=== PATIENT | female | born 1950 | race Caucasian/White ===

== ENCOUNTER 2019-07-17 09:10 | Outpatient (REF) | payer MEDICARE, OTHER, SELFPAY ==
[2019-07-17 09:23] LABS: Abs Immature Grans 0.01 k/cumm (0.0-0.09); Absolute Basophil Count 0.02 k/cumm (0.0-0.2); Absolute Monocyte Count 1.16 k/cumm (0.11-0.7); Absolute Neutrophil Count 3.75 k/cumm (1.2-6.7); Basophils % 0.2; Eosinophils % 4.8; HCT 36.3 % (36.0-46.0); HGB 11.2 g/dL (12.0-15.5); Immature Grans % 0.1; Mean Corp. HGB Concentration 30.9 g/dL (32.0-36.0); Mean Corpuscular Hemoglobin 28.9 pg (27.0-33.0); Mean Corpuscular Volume 93.6 fL (80-95); Mean Platelet Volume 9.6 fL (8.0-11.0); Monocytes % 13.9; Platelet Count 401 x1000/uL (130-400); RBC 3.88 m/cumm (4.00-5.20); White Blood Cell Count 8.34 k/cumm (4.4-10.8)
[2019-07-17 09:33] LABS: ALT 18 U/L (14-59); AST 21 U/L (15-37); Albumin 3.2 g/dL (3.4-5.0); Alkaline Phosphatase 91 U/L (46-116); Anion Gap 8.8 mmol/L (3-11); BUN 15 mg/dL (7-18); Bilirubin, Total 0.2 mg/dL (0.2-1.0); CO2 27.2 mmol/L (21.0-32.0); CREATININE 0.75 mg/dL (0.55-1.02); Calcium 8.6 mg/dL (8.5-10.1); Chloride 105 mmol/L (98-107); Glucose 92 mg/dL (70-100); Potassium 3.9 mmol/L (3.5-5.1); Sodium 141 mmol/L (136-145); Total Protein 7.2 g/dL (6.4-8.2)
[2019-07-18 10:28] LABS: CA 125 174 U/mL (0-30)
== END 2019-07-17 09:30 ==
LOC: LBN 09:10
PROVIDERS: Visit Provider Obstetrics & Gynecology Gynecologic Oncology
DX: C80.1 Malignant (primary) neoplasm, unspecified (principal); C56.9 Malignant neoplasm of unspecified ovary
CPT/HCPCS: 80053; 86304; 85025

== ENCOUNTER 2019-08-07 01:57 | Outpatient (RCR) | payer MEDICARE, SELFPAY | END 2019-08-07 23:59 | disposition home or self-care (01) | LOC: INF 01:57 | PROVIDERS: PCP Physician Assistant; Visit Provider Internal Medicine Hematology & Oncology | DX: R69 Illness, unspecified (principal) ==

== ENCOUNTER 2019-08-07 08:52 | Outpatient (CLI) | payer MEDICARE, OTHER, SELFPAY ==
[2019-08-07 09:25] LABS: Abs Immature Grans 0.02 k/cumm (0.0-0.09); Absolute Basophil Count 0.04 k/cumm (0.0-0.2); Absolute Eosinophil Count 0.11 k/cumm (0.0-0.7); Absolute Lymphocyte Count 2.62 k/cumm (1.2-3.4); Absolute Monocyte Count 1.02 k/cumm (0.11-0.7); Absolute Neutrophil Count 4.85 k/cumm (1.2-6.7); Basophils % 0.5; Eosinophils % 1.3; HCT 32.6 % (36.0-46.0); Immature Grans % 0.2; Lymphocytes % 30.3; Mean Corp. HGB Concentration 30.7 g/dL (32.0-36.0); Mean Corpuscular Hemoglobin 28.9 pg (27.0-33.0); Mean Corpuscular Volume 94.2 fL (80-95); Mean Platelet Volume 9.1 fL (8.0-11.0); Monocytes % 11.8; Neutrophils % 55.9; Platelet Count 433 x1000/uL (130-400); RBC 3.46 m/cumm (4.00-5.20); RBC Distribution Width 17.1 % (11.7-14.6); White Blood Cell Count 8.66 k/cumm (4.4-10.8)
[2019-08-07 09:48] LABS: ALT 30 U/L (14-59); AST 30 U/L (15-37); Albumin 3.2 g/dL (3.4-5.0); Alkaline Phosphatase 98 U/L (46-116); Anion Gap 7.9 mmol/L (3-11); BUN 15 mg/dL (7-18); Bilirubin, Total 0.2 mg/dL (0.2-1.0); CO2 26.1 mmol/L (21.0-32.0); CREATININE 0.74 mg/dL (0.55-1.02); Chloride 107 mmol/L (98-107); Glucose 96 mg/dL (70-100); Potassium 4.1 mmol/L (3.5-5.1); Sodium 141 mmol/L (136-145); Total Protein 7.2 g/dL (6.4-8.2)
[2019-08-08 10:56] LABS: CA 125 79 U/mL (0-30)
== END 2019-08-07 09:12 ==
PROVIDERS: PCP Physician Assistant; Visit Provider Obstetrics & Gynecology Gynecologic Oncology
DX: C80.1 Malignant (primary) neoplasm, unspecified (principal); C56.9 Malignant neoplasm of unspecified ovary
CPT/HCPCS: 36415; 80053; 86304; 85025

== ENCOUNTER 2019-08-28 02:55 | Outpatient (RCR) | payer MEDICARE, OTHER, SELFPAY | END 2019-09-06 23:59 | disposition home or self-care (01) | LOC: INF 02:55 | PROVIDERS: PCP Physician Assistant; Visit Provider Internal Medicine Hematology & Oncology | DX: R69 Illness, unspecified (principal) ==

== ENCOUNTER 2019-08-28 08:48 | Outpatient (CLI) | payer MEDICARE, OTHER, SELFPAY ==
[2019-08-28 09:19] LABS: Abs Immature Grans 0.02 k/cumm (0.0-0.09); Absolute Basophil Count 0.01 k/cumm (0.0-0.2); Absolute Eosinophil Count 0.04 k/cumm (0.0-0.7); Absolute Lymphocyte Count 2.47 k/cumm (1.2-3.4); Absolute Monocyte Count 0.94 k/cumm (0.11-0.7); Absolute Neutrophil Count 6.03 k/cumm (1.2-6.7); Basophils % 0.1; Eosinophils % 0.4; HCT 33.7 % (36.0-46.0); HGB 10.4 g/dL (12.0-15.5); Immature Grans % 0.2; Mean Corp. HGB Concentration 30.9 g/dL (32.0-36.0); Mean Corpuscular Hemoglobin 30.1 pg (27.0-33.0); Mean Corpuscular Volume 97.4 fL (80-95); Mean Platelet Volume 9.4 fL (8.0-11.0); Monocytes % 9.9; Neutrophils % 63.4; Platelet Count 156 x1000/uL (130-400); RBC 3.46 m/cumm (4.00-5.20); RBC Distribution Width 20.6 % (11.7-14.6); White Blood Cell Count 9.51 k/cumm (4.4-10.8)
[2019-08-28 09:33] LABS: ALT 31 U/L (14-59); AST 24 U/L (15-37); Albumin 3.6 g/dL (3.4-5.0); Alkaline Phosphatase 111 U/L (46-116); Anion Gap 7.6 mmol/L (3-11); BUN 14 mg/dL (7-18); Bilirubin, Total 0.1 mg/dL (0.2-1.0); CO2 25.4 mmol/L (21.0-32.0); CREATININE 0.71 mg/dL (0.55-1.02); Calcium 8.5 mg/dL (8.5-10.1); Chloride 105 mmol/L (98-107); Glucose 93 mg/dL (74-106); Potassium 4.3 mmol/L (3.5-5.1); Sodium 138 mmol/L (136-145); Total Protein 7.2 g/dL (6.4-8.2)
[2019-08-28 09:51] LABS: Anisocytosis 1+; Diff Comment RBC Morph Reviewed; Poikilocytes 1+; Polychromasia Present
[2019-08-29 12:31] LABS: CA 125 65 U/mL (<30)
== END 2019-08-28 09:08 ==
PROVIDERS: PCP Physician Assistant; Visit Provider Obstetrics & Gynecology Gynecologic Oncology
DX: C80.1 Malignant (primary) neoplasm, unspecified (principal); C56.9 Malignant neoplasm of unspecified ovary
CPT/HCPCS: 36415; 80053; 86304; 85025

== ENCOUNTER 2019-09-18 01:25 | Outpatient (CLI) | payer MEDICARE, OTHER, SELFPAY ==
[2019-09-18 08:42] LABS: Abs Immature Grans 0.01 k/cumm (0.0-0.09); Absolute Basophil Count 0.03 k/cumm (0.0-0.2); Absolute Eosinophil Count 0.08 k/cumm (0.0-0.7); Absolute Lymphocyte Count 2.08 k/cumm (1.2-3.4); Absolute Monocyte Count 0.95 k/cumm (0.11-0.7); Absolute Neutrophil Count 3.39 k/cumm (1.2-6.7); Basophils % 0.5; Eosinophils % 1.2; HCT 29.3 % (36.0-46.0); HGB 8.9 g/dL (12.0-15.5); Immature Grans % 0.2; Lymphocytes % 31.8; Mean Corp. HGB Concentration 30.4 g/dL (32.0-36.0); Mean Corpuscular Hemoglobin 30.5 pg (27.0-33.0); Mean Corpuscular Volume 100.3 fL (80-95); Mean Platelet Volume 8.7 fL (8.0-11.0); Monocytes % 14.5; Neutrophils % 51.8; Platelet Count 401 x1000/uL (130-400); RBC 2.92 m/cumm (4.00-5.20); White Blood Cell Count 6.54 k/cumm (4.4-10.8)
[2019-09-18 08:57] LABS: ALT 21 U/L (14-59); AST 22 U/L (15-37); Albumin 3.2 g/dL (3.4-5.0); Alkaline Phosphatase 106 U/L (46-116); Anion Gap 10.9 mmol/L (3-11); BUN 13 mg/dL (7-18); Bilirubin, Total 0.2 mg/dL (0.2-1.0); CO2 26.1 mmol/L (21.0-32.0); CREATININE 0.75 mg/dL (0.55-1.02); Calcium 9.1 mg/dL (8.5-10.1); Chloride 103 mmol/L (98-107); Glucose 118 mg/dL (74-106); Potassium 3.8 mmol/L (3.5-5.1); Sodium 140 mmol/L (136-145); Total Protein 7.2 g/dL (6.4-8.2)
[2019-09-18 09:22] LABS: Anisocytosis 2+; Diff Comment RBC Morph Reviewed; Polychromasia Present
[2019-09-18 09:23] LABS: Poikilocytes 1+
[2019-09-19 11:37] LABS: CA 125 70 U/mL (<30)
== END 2019-09-18 01:45 ==
PROVIDERS: PCP Physician Assistant; Visit Provider Obstetrics & Gynecology Gynecologic Oncology
DX: C80.1 Malignant (primary) neoplasm, unspecified (principal); C56.9 Malignant neoplasm of unspecified ovary
CPT/HCPCS: 36415; 80053; 86304; 85025

== ENCOUNTER 2019-10-09 07:43 | Outpatient (CLI) | payer MEDICARE, OTHER, SELFPAY ==
[2019-10-09 08:11] LABS: Abs Immature Grans 0.01 k/cumm (0.0-0.09); Absolute Basophil Count 0.02 k/cumm (0.0-0.2); Absolute Eosinophil Count 0.02 k/cumm (0.0-0.7); Absolute Lymphocyte Count 1.95 k/cumm (1.2-3.4); Absolute Monocyte Count 0.77 k/cumm (0.11-0.7); Absolute Neutrophil Count 4.12 k/cumm (1.2-6.7); Basophils % 0.3; Eosinophils % 0.3; HCT 29.3 % (36.0-46.0); HGB 9.1 g/dL (12.0-15.5); Immature Grans % 0.1; Lymphocytes % 28.3; Mean Corp. HGB Concentration 31.1 g/dL (32.0-36.0); Mean Corpuscular Volume 103.2 fL (80-95); Mean Platelet Volume 9.5 fL (8.0-11.0); Monocytes % 11.2; Neutrophils % 59.8; Platelet Count 165 x1000/uL (130-400); RBC 2.84 m/cumm (4.00-5.20); RBC Distribution Width 22.8 % (11.7-14.6); White Blood Cell Count 6.89 k/cumm (4.4-10.8)
[2019-10-09 08:24] LABS: ALT 21 U/L (14-59); AST 26 U/L (15-37); Albumin 3.4 g/dL (3.4-5.0); Alkaline Phosphatase 104 U/L (46-116); Anion Gap 10.2 mmol/L (3-11); BUN 14 mg/dL (7-18); Bilirubin, Total 0.2 mg/dL (0.2-1.0); CO2 25.8 mmol/L (21.0-32.0); CREATININE 0.71 mg/dL (0.55-1.02); Calcium 8.7 mg/dL (8.5-10.1); Chloride 106 mmol/L (98-107); Glucose 75 mg/dL (74-106); Potassium 4.1 mmol/L (3.5-5.1); Sodium 142 mmol/L (136-145); Total Protein 7.3 g/dL (6.4-8.2)
[2019-10-10 08:55] LABS: CA 125 48 U/mL (<30)
== END 2019-10-09 08:03 ==
PROVIDERS: PCP Physician Assistant; Visit Provider Obstetrics & Gynecology Gynecologic Oncology
DX: C56.9 Malignant neoplasm of unspecified ovary (principal); C80.1 Malignant (primary) neoplasm, unspecified
CPT/HCPCS: 36415; 80053; 86304; 85025

== ENCOUNTER 2021-09-08 23:32 | Observation (INO) | payer MEDICARE, OTHER, SELFPAY ==
--- OUTSIDE RECORDS SUMMARY | 2021-09-08 23:27 | XMS_ITS ---
:1950 Author Care Team Providers Name Role Phone DAWIT HOOD MD Orthopedic Surgeon Unavailable KANCHAN PRADO Primary Care Provider [phone] JASE MAGUIRE Licensed Professional Counselor [phone] Allergies Code Code System Name Reaction Severity Status Onset 51498 RxNorm Lisinopril Hives Moderate Active 9 272149 RxNorm Crestor Myalgias ? Active ? (Muscle Pain) Notes: 02/09/2021 verbal review wi th patient Medications Name Status Start Date Stop Date ? ? acetaminophen 500 mg tablet Active 09/07/2021 Not available Take 1-2 tablets up to four times a day as needed for pain Adderall XR 15 mg capsule,extended release Active 09/07 Not available Take 1 capsule every day by oral route. amlodipine 10 mg tablet Completed ? 03/04/20 19 take one tablet once daily amoxicillin 875 mg tablet Completed 09/05/20172016 1 (one) Tablet Tablet: bid - twice daily amoxicillin 875 mg-potassium clavulanate 125 mg tablet Completed 09/01/2019 09/09/2019 Take 1 tablet every 12 hours by oral route. first dose at home in the evening on 09/01/19 atenolol 50 mg tablet Completed 04/25/2015 04/25/2015 1 Tablet: two times daily atorvastatin 20 mg tablet Completed 11/11/20122012 Tablet: daily Bactrim DS 800 mg-160 mg tablet Completed 01/03/2017 01/08/2017 1 (one) Tablet: twice a day for five days bisacodyl 5 mg tablet,delayed release Active 09/07/2021 Not available Take 2 tablets every day by oral route as needed. bisoprolol fumarate 5 mg tablet Completed ? 06/18/2018 Take 1 tablet every day by oral route. carboplatin Completed ? 03/24/2020 Celebrex 200 mg capsule Completed 07/10/2016 07/10/20 16 1 (one) Capsule: daily cephalexin 500 mg capsule Completed ? 2018 take one tablet three times daily X 10 days chlorthalidone 25 mg tablet Active 09/07/2021 Not available Take 1 tablet every day by oral route. ciclopirox 8 % topical solution Completed 08/04/2016 03/16/2017 1 (one) Application Application: daily Cinnamon 500 mg capsule Active 09/07/2021 Not avai lable Take 2 capsules every day by oral route. citalopram 10 mg tablet Completed ? 09/20/20 20 Take 1 tablet every day by oral route. citalopram 20 mg tablet Completed ? 09/20/20 20 Take 1 tablet every day by oral route. clobetasol 0.05 % topical ointment Completed 01/24/2008 08/13/2008 1 (one) Application(s): two times daily clonidine HCl 0.1 mg tablet Active 09/07/2021 Not available 1 tablet twice a day by oral route. clotrimazole 10 mg donald Completed 09/21/20172016 1 (one) Donald: use up to 5 times daily as needed for 7 days cod liver oil Active 09/07/2021 Not available once daily codeine 10 mg-guaifenesin 100 mg/5 mL oral liquid Completed 06/25/2017 07/05/2017 1 (one) Syrup: ud Colace 100 mg capsule Active 09/07/2021 Not availa ble Take 1 capsule twice a day by oral route. Diflucan 150 mg tablet Completed ? 0 Take 1 tablet every week by oral route. Dilaudid 2 mg tablet Completed ? 09/07/2021 1 tab every 4 hours as needed for severe pain. Dilaudid 4 mg tablet Active 09/07/2021 Not availab le Take 1 tablet every day by oral route as needed. Diovan 320 mg tablet Completed 06/25/2017 06/26/2017 1 (one) Tablet: qd - daily Ditropan XL 10 mg tablet,extended release Completed 201206/02/2013 1 Tablet ER 24HR: qam - every morning ferrous gluconate 324 mg (38 mg iron) tablet Active 10/2020 Not available Take 1 tablet twice a day by oral route. Fish Oil Active 09/07/2021 Not available twice daily flaxseed Completed ? 04/02/2019 2 capsules daily Flonase Allergy Relief 50 mcg/actuation nasal spray,suspensi on Active 09/07/2021 Not available [place] 2 sprays every day by intranasal route. folic acid 1 mg tablet Completed 07/22/2014 5 2 (two) Tablet: daily Fosamax 70 mg tablet Completed ? 11/11/2018 Take 1 tablet every week by oral route for 84 days. furosemide 20 mg tablet Completed 05/28/2017 09/05/20 17 1 (one) Tablet: daily as needed gabapentin 300 mg capsule Completed ? 2018 Take 1 capsule every day by oral route at bedtime for 30 days. garlic oil 1,000 mg capsule Completed 02/21/201302/05 1 Capsule: daily Hair,Skin and Nails Completed ? 08/19/2018 once daily hydrochlorothiazide 25 mg tablet Completed 08/02/2012 08/02/2012 (one half) Tablet: daily hydrocodone 10 mg-acetaminophen 325 mg tablet Completed ? 11/26/2018 one tablet every 4-6 hours prn ibuprofen 600 mg tablet Completed ? 06/13/20 19 Take 1 tablet every 6 hours by oral route as needed. ibuprofen 800 mg tablet Active 09/07/2021 Not avai lable Take 1 tablet every day by oral route as needed. ketorolac 60 mg/2 mL intramuscular solution Completed ? 07/28/2020 Inject 2 mL every day by intramuscular route for 1 day. lactulose 10 gram/15 mL oral solution Completed ? 09/01/2019 Take 30 mL every day by oral route as needed. lidocaine 5 % medicated patch and dimethicone 5 % topical cream Completed ? 06/13/2019 Apply 1 patch onto the skin, leave on f or 12 hours and then remove for 12 hours. lisinopril 10 mg tablet Completed ? 06/28/20 19 Take 1 tablet every day by oral route for 30 days. lisinopril 40 mg tablet Completed 02/23/2017 06/25/20 17 1 (one) Tablet: daily lorazepam 1 mg tablet Completed ? 07/28/2020 Take 1 tablet as needed by oral route. Taken 30 minutes prior to MRI/PET; may repeat if needed. magnesium 250 mg (as magnesium oxide) tablet Completed ? 12/20/2018 Take 1 tablet every day by oral route for 90 days. Medrol (Gino) 4 mg tablets in a dose pack Completed ? 07/28/2020 Take 1 dose pk by oral route. meloxicam 7.5 mg tablet Completed 10/11/2012 10/11/19 13 1 Tablet: daily methotrexate sodium 2.5 mg tablet Completed 07/22/2014 07/22/2014 4 Tablet: weekly metoprolol succinate ER 100 mg tablet,extended release 24 hr Act khari 09/07/2021 Not available Take 1 tablet every day by oral route. metoprolol succinate ER 25 mg tablet,extended release 24 hr Comp leted ? 09/07/2021 Take 1 tablet every day by oral route for 90 days. metoprolol succinate ER 50 mg tablet,extended release 24 hr Comp leted ? 09/07/2021 TAKE ONE TABLET BY MOUTH EVERY DAY Neulasta Completed ? 03/24/2020 Nexium 40 mg capsule,delayed release Completed 07/07/2016 11/03/2016 1 (one) Capsule Capsule: daily nystatin 100,000 unit/gram topical powder Completed ? 09/07/2021 APPLY TO THE AFFECTED AREA(S) BY TOPICAL ROUTE 2 TIMES PER DAY nystatin 100,000 unit/mL oral suspension Completed 014 06/17/2014 1 (one) Teaspoon: 3-4 times per day as needed omeprazole 20 mg capsule,delayed release Completed ? 07/18/2018 Take 1 capsule every day by oral route. ondansetron 4 mg disintegrating tablet Completed 9 09/07/2021 Take 1 tablet every 6 hours by oral route as needed. for nausea and vomiting oxybutynin chloride 5 mg tablet Completed 04/01/2014 04/01/2014 1 Tablet: Three times daily as needed oxybutynin chloride ER 5 mg tablet,extended release 24 hr Active 09/07/2021 Not available Take 1 tablet every day by oral route. oxycodone 5 mg tablet Completed ? 08/18/2019 Take 1 tablet every 4 hours by oral route. Take 1 or 2 oxycodone up to every 4 as needed for pain control. oxycodone-acetaminophen 5 mg-325 mg tablet Completed 09/2410/27/2015 1-2 Tablet Tablet: four times daily as needed polyethylene glycol 3350 17 gram oral powder packet Active 09/07/2021 Not available 1 packet every day by oral route as needed. polyethylene glycol 3350 17 gram/dose oral powder Completed ? 09/07/2021 Take 17 g every day by oral route for 10 days. prednisone 1 mg tablet Completed 10/15/2013 4 4 Tablet: daily prednisone 10 mg tablet Completed ? 09/07/20 21 60 mg for 3 days 40 mg for 3 days then 30 mg for 3 days the n 20 mg for 3 days prednisone 20 mg tablet Completed ? 10/04/20 20 Take 1 tablet (20mg) daily for 5 days then 1/2 tablet (10mg ) daily for 4 days prednisone 5 mg tablet Active 09/07/2021 Not avail able Take 1 tablet every day by oral route. Protonix 40 mg tablet,delayed release Completed ? 10/02/2018 Take 1 tablet every day by oral route for 30 days. take daily X 4 weeks, and then taper off as tolerated ranitidine 150 mg tablet Completed ? 019 Take 1 tablet twice a day by oral route for 10 days. Reclast 5 mg/100 mL intravenous piggyback Completed 201810/15/2019 inject 5 mg by IV infusion yearly senna-docusate sodium 8.6 mg-50 mg tablet Completed ? 06/13/2019 Take 2 tablets twice a day by oral route. sennosides 8.6 mg tablet Completed 09/01/2019 020 Take 1-2 tablets once a day as needed for constipation Taxol Completed ? 03/24/2020 Tessalon Perles 100 mg capsule Completed 07/16/2015 0 12/22/2015 1-2 Capsule: Twice daily as needed tolterodine ER 2 mg capsule,extended release 24 hr Completed ? 06/13/2019 Take 1 capsule every day by oral route for 30 days. tramadol 50 mg tablet Active 09/07/2021 Not availa ble 3 tablets twice a day by oral route. Valium 5 mg tablet Completed 09/24/2015 12/22/2015 1 (one) Tablet Tablet: take one hour prior to MRI Vesicare 5 mg tablet Completed 08/29/2013 08/29/2013 1 Tablet: daily Vitamin B-12 Completed 09/01/2019 07/28/2020 once daily Vitamin B-12 1,000 mcg tablet Active 09/07/2021 N ot available 1 tablet every day by oral route. Vitamin D3 Active 09/07/2021 Not available once daily vitamin E Active 09/07/2021 Not available twice daily Wellbutrin 100 mg tablet Completed 09/16/2007 008 1 Tablet: Daily Xenical 120 mg capsule Unknown 01/27/2008 Not avail able 1 (one) Capsule: three times daily Zithromax Z-Gino 250 mg tablet Completed 09/22/2016 1 (one) Tablet: 2 tabs on day one, 1 tab daily for therafter Zofran 4 mg tablet Completed 12/22/2016 03/16/2017 1 Tablet: every 8 hours prn Zoloft 50 mg tablet Completed 01/24/2008 01/24/2008 1 (one) Tablet: Daily Notes: med rec completed with nona mckeon 09/05/2021 Rose Briceño, sunniD Problems Name Status Onset Date Source ? Osteoarthritis of Right Knee Joint Active 05/08/2018 ? Compression Fracture of Lumbar Spine Active 07/18/2018 ? Hearing Loss Active 10/02/2018 ? Cramp in Lower Limb Unknown 10/02/2018 ? Osteoporosis Active 10/11/2018 ? Fracture of Pelvis Active 11/14/2018 ? Osteoarthritis of Joint of Left Active 12/11/2018 ? Shoulder Region Left Side Sciatica Active 12/20/2018 ? Cardiomegaly Active 01/03/2019 ? Urge Incontinence of Urine Active 01/03/2019 ? Liver Mass Unknown 02/25/2019 ? Cholelithiasis without Obstruction Active 02/25/2019 ? 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 Lumbar Spondylosis Active 06/23/2019 ? Partial Obstruction of Small Bowel Active 09/09/2019 ? Anemia Active 11/04/2019 ? Onychomycosis Unknown ? History Candidiasis of Mouth Unknown ? History Hyperlipidemia Active ? History Simple Chronic Anemia Active ? History Depressive Disorder Active ? History Chronic Fatigue Syndrome Unknown ? History Hypertensive Disorder Active ? History Acute Sinusitis Unknown ? History Gastroesophageal Reflux Disease Active ? History Contact Dermatitis Unknown ? History Idiopathic Osteoarthritis Active ? Histor y Arthropathy Active ? History Localized Edema Unknown ? History Cough Unknown ? History Mixed Urinary Incontinence Active ? Histo ry Abdominal Pain Unknown ? History Therapeutic Drug Monitoring Assay Unknown ? History Pre-surgery Evaluation Unknown ? History Pain of Right Shoulder Joint Unknown ? His tory Specialized Medical Examination Unknown ? History Inflammatory Disorder of Digestive Unknown ? History Tract Procedure by Method Unknown ? History Knee Pain Active ? History Long-term Current Use of Drug Therapy Unknown ? History Procedures Date Name Performed by ? 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 also 01/06/2014: left 10/08/2015 Shoulder Surgery Information not avai lable Notes: right shoulder replacement. Rogers Kohler 06/29/2014 Injection of Knee Joint Information not available Notes: bilat, Aristospan 20mg 10/08/1996 Dilation and Curettage of Uterus Informa tion not available 10/08/1972 Delivery Information not avai lable Notes: also 1970 07/18/2018 DEXA, Axial Skeleton [facility] (Internal) [address] [place] [id number] (Work Place) 08/19/2018 XR, Lumbosacral Spine, 2 or 3 View [facility] (Internal) [address] [place] [address] (Work Place) 09/06/2018 MAMMO, Screening, Tomosynthesis, [facility] Radiology (Internal) Bilateral [address] [place] [address] (Work Place) 01/03/2019 US, Echocardiogram P_visiting Physician s [address] [place] [address] (Work Place) 02/18/2019 US, Abdomen, Limited [facility] (Internal) [address] [place] [address] (Work Place) 02/27/2019 CT, Abdomen + Pelvis, W/ Contrast [facility] (Internal) [address] [place] [address] (Work Place) 03/04/2019 US, Guidance [facility] [place] [address] (Work Place) 07/14/2019 CT, Abdomen + Pelvis, W/ Contrast [facility] (Internal) [address] [place] [address] (Work Place) 03/24/2020 XR, Knee, 3 View [facility] [address] [place] [address] (Work Place) 06/10/2020 XR, Knee, 4 or More View [facility] (Internal) [address] [place] [address] (Work Place) 07/08/2020 XR, Lumbosacral Spine, 2 or 3 View [facility] (Internal) [address], [place] [phone] (Work Place) 09/07/2021 Pharmacologic Nuclear Stress Test [facility] [address] [place] [phone] (Work Place) Results Lab Results Date Name Specimen Result Interpretation Description Value Range Status Address ? 02/13/2021 CBC W/ Auto BLD ? Wbc 9.2 10*3/uL 5.0-10.0 F inal [place] Diff 10*3/uL [facility] (Internal) : [address] ? ? BLD Low Rbc 3.89 10*6/uL 4.10-5.30 Final N orth 10*6/uL [facility] (Internal) : [address] t ? ? BLD ? Hgb 12.9 g/dL 12.0-16.0 Final Nort h g/dL [facility] ab (Internal) : [address] ? ? BLD ? Hct 39.5 % 37.0-47.0 Final [facility] (Internal) : [address] ? ? BLD High Mcv 101.5 fL 80.0-96.[address] [facility] L ab (Internal) : [address] ? ? BLD High Mch 33.2 pg 26.0-32.0 Final [facility] ab (Internal) : [address] ? ? BLD ? Mchc 32.7 g/dL 31.0-35.0 Final Nort h g/dL [facility] ab (Internal) : [address] ? ? BLD ? Rdw 13.5 % 11.5-14.5 Final [facility] L ab (Internal) : [address] t ? ? BLD ? Plt 200 10*3/uL 130-450 Final Nort h 10*3/uL [facility] (Internal) : [address] t ? ? BLD ? Anc 6.65 10*3/uL ? Final Nort h [facility] ab (Internal) : [address] ? ? BLD High Nlr 5.00 0.00-3.20 Final [facility] L ab (Internal) : [address] ? ? BLD ? Neutro 72.3 % 40.0-75.0 Final [facility] ab (Internal) : [address] ? ? BLD Low Lymph 14.5 % 20.0-50.0 Final [facility] ab (Internal) : [address] ? ? BLD High Ciales 11.0 % 2.0-10.0 Final [facility] L ab (Internal) : [address] ? ? BLD ? Eos 1.7 % 1.0-6.0 % Final [facility] L ab (Internal) : [address] ? ? BLD ? Baso 0.2 % 0.0-1.0 % Final [facility] ab (Internal) : [address] ? ? BLD ? Ig 0.3 % 0.0-0.9 % Final [facility] ab (Internal) : [address] 02/13/2021 Lipase, S ? Lip 64 U/L 23-300 Final [place] Serum or U/L [facility] L ab (Internal) : [address] 02/13/2021 CMP, Serum S High g/r 115 mg/dL 74-106 Final [place] or Plasma mg/dL [facility] (Internal) : [address] ? ? S High Bun 29 mg/dL 7-17 Final [place] mg/dL [facility] (Internal) : [address] ? ? S ? Crea 1.00 mg/dL 0.52-1.04 Final Nor [place] mg/dL [facility] (Internal) : [address] ? ? S ? Ca 8.6 mg/dL 8.4-10.2 Final [place] mg/dL [facility] (Internal) : [address] ? ? S ? Na 140 mmol/L 137-145 Final [place] mmol/L [facility] (Internal) : [address] ? ? S Low K 2.6 mmol/L 3.5-5.1 Final [place] mmol/L [facility] (Internal) : [address] ? ? S ? Cl 100 mmol/L 98-107 Final [place] mmol/L [facility] (Internal) : [address] ? ? S ? Tco2 30.0 mmol/L 22.0-30.0 Final No rth mmol/L [facility] (Internal) : [address] ? ? S ? Tp 6.5 g/dL 6.3-8.2 Final [place] g/dL [facility] (Internal) : [address] ? ? S Low Alb 3.4 g/dL 3.5-5.0 Final [place] g/dL [facility] (Internal) : [address] ? ? S ? Tbil 0.8 mg/dL 0.2-1.3 Final [place] mg/dL [facility] L [facility] (Internal) : [address] ? ? S ? Alp 107 U/L 38-126 Final [place] U/L [facility] (Internal) : [address] ? ? S ? Alt 23 U/L 9-52 U/L Final [place] (Sgpt) [facility] (Internal) : [address] ? ? S High Ast 51 U/L 14-36 U/L Final [place] (Sgot) [facility] (Internal) : [address] 02/13/2021 RBC BLD ? Macro small ? Final [facility] Morphology, Count ry Blood Hospital L ab (Internal) : [address] ? ? BLD ? Oval occasional ? Final [facility] ab (Internal) : [address] 08/12/2020 Urinalysis, UR ? UA-color yellow pale Final [place] Dipstick, yellow [facility] L ab Micro (Internal) : [address] ? ? UR ? UA-appea clear clear Final [facility] ab (Internal) : [address] ? ? UR ? UA-gluc negative negative Final [facility] ab (Internal) : [address] ? ? UR ? UA-bili negative negative Final [facility] ab (Internal) : [address] ? ? UR ? UA-keton negative negative Final [facility] ab (Internal) : [address] ? ? UR ? UA-spec 1.025 1.003-1.[address] ab (Internal) : [address] ? ? UR ABNORMA UA-blood trace negative Final [facility] (Internal) : [address] ? ? UR ? UA-pH 6.5 [pH] 4.6-8.0 Final [place] [pH] [facility] ab (Internal) : [address] ? ? UR ? UA-prot negative negative Final [facility] ab (Internal) : [address] ? ? UR ? UA-urobi normal normal Final [facility] ab (Internal) : [address] ? ? UR ? UA-nitri negative negative Final [facility] ab (Internal) : [address] ? ? UR ABNORMA UA-leuk trace negative Final [facility] ab (Internal) : [address] 08/12/2020 Urinalysis, UR ABNORMA UA-WBC 10-25 [hpf] 0-3 [hpf ] Final [place] Microscopic [facility] ab (Internal) : [address] ? ? UR ? UA-RBC 0-2 [hpf] 0-2 [hpf] Final [facility] ab (Internal) : [address] ? ? UR ? UA-bacte rare [hpf] none seen Final [place] lamont [hpf] [facility] ab (Internal) : [address] ? ? UR ? UA-epith rare [hpf] none seen Final [place] elial [hpf] [facility] ab (Internal) : [address] ? ? UR ? UA-mucus none seen none seen Final N orth [hpf] [hpf] [facility] ab (Internal) : [address] 08/12/2020 Culture UR ? Final microbiology ? Final [place] ([place] results [facility] Count), [facility] Lab Urine (Internal) : [address] 06/16/2020 Urinalysis, UR ? UA-color yellow pale Final [place] Dipstick, yellow [facility] ab Micro (Internal) : [address] ? ? UR ? UA-appea clear clear Final [facility] ab (Internal) : [address] ? ? UR ? UA-gluc negative negative Final [facility] ab (Internal) : [address] ? ? UR ? UA-bili negative negative Final [facility] ab (Internal) : [address] ? ? UR ? UA-keton negative negative Final [facility] ab (Internal) : [address] ? ? UR ? UA-spec 1.020 1.003-1.0 Final [place] Grav 35 [facility] ab (Internal) : [address] ? ? UR ? UA-blood negative negative Final [facility] ab (Internal) : [address] ? ? UR ? UA-pH 7.0 [pH] 4.6-8.0 Final [place] [pH] [facility] ab (Internal) : [address] ? ? UR ABNORMA UA-prot 2+ negative Final [facility] ab (Internal) : [address] ? ? UR ? UA-urobi normal normal Final [facility] : [address] ? ? UR ? UA-nitri negative negative [facility] : [address] ? ? UR ? UA-leuk negative negative Final [facility] : [address] 01/29/2020 CMP, Serum S ? g/r 85 mg/dL 74-106 Final [place] or Plasma mg/dL [facility] : [address] ? ? S ? Bun 17 mg/dL 7-17 Final [place] mg/dL [facility] (Internal) : [address] ? ? S ? Crea 0.70 mg/dL 0.52-1.04 Final [facility] mg/dL [facility] (Internal) : [address] ? ? S ? Ca 9.7 mg/dL 8.4-10.2 Final [place] mg/dL [facility] (Internal[facility] : [address] ? ? S ? Na 141 mmol/L 137-145 Final [place] mmol/L [facility] (Internal[facility] : [address] ? ? S ? K 4.1 mmol/L 3.5-5.1 Final [place] mmol/L [facility] (Internal[facility] : [address] ? ? S ? Cl 106 mmol/L 98-107 Final [place] mmol/L [facility] (Internal[facility] : [address] ? ? S ? Tco2 26.0 mmol/L 22.0-30.0 Final No rth mmol/L [facility] (Internal) : [address] ? ? S ? Tp 7.1 g/dL 6.3-8.2 Final [facility] g/dL [facility] (Internal[facility] : [address] ? ? S ? Alb 3.9 g/dL 3.5-5.0 Final [place] g/dL [facility] (Internal[facility] : [address] ? ? S ? Tbil 0.3 mg/dL 0.2-1.3 Final [place] mg/dL [facility] ([facility] : [address] ? ? S ? Alp 79 U/L 38-126 Final [place] U/L [facility] ab (Internal) : [address] ? ? S ? Alt 20 U/L 9-52 U/L Final [place] (Sgpt) [facility] (Internal) : [address] ? ? S High Ast 47 U/L 14-36 U/L Final [place] (Sgot) [facility] (Internal) : [address] 01/29/2020 CBC W/ Auto BLD ? Wbc 7.0 10*3/uL 5.0-10.0 F inal [place] Diff 10*3/uL [facility] ([facility] : [address] ? ? BLD Low Rbc 3.17 10*6/uL 4.10-5.30 Final N orth 10*6/uL [facility] (Internal[facility] : [address] ? ? BLD Low Hgb 10.5 g/dL 12.0-16.0 Final Nort h g/dL [facility] L ab (Internal) : [address] ? ? BLD Low Hct 34.8 % 37.0-47.0 Final [facility] L ab (Internal) : [address] ? ? BLD High Mcv 109.8 fL 80.0-96.0 Final [facility] L ab (Internal) : [address] ? ? BLD High Mch 33.1 pg 26.0-32.0 Final [facility] Hospital L ab (Internal) : [address] ? ? BLD Low Mchc 30.2 g/dL 31.0-35.0 Final Nort h g/dL [facility] L ab (Internal) : [address] ? ? BLD High Rdw 14.9 % 11.5-14.5 Final [facility] L ab (Internal) : [address] ? ? BLD ? Plt 257 10*3/uL 130-450 Final Nort h 10*3/uL [facility] L ab (Internal) : [address] ? ? BLD ? Anc 3.06 10*3/uL ? Final Nort [facility] L ab (Internal) : [address] ? ? BLD ? Nlr 1.13 0.00-3.20 Final [facility] L ab (Internal) : [address] t ? ? BLD ? Neutro 43.7 % 40.0-75.0 Final [facility] L ab (Internal) : [address] ? ? BLD ? Lymph 38.8 % 20.0-50.0 Final [facility] L ab (Internal) : [address] ? ? BLD High Ciales 10.9 % 2.0-10.0 Final [facility] L ab (Internal) : [address] t ? ? BLD ? Eos 5.9 % 1.0-6.0 % Final [facility] L ab (Internal) : [address] ? ? BLD ? Baso 0.6 % 0.0-1.0 % Final [facility] L ab (Internal) : [address] ? ? BLD ? Ig 0.1 % 0.0-0.9 % Final [facility] L ab (Internal) : [address] 01/29/2020 TSH, Serum S Low Tsh 0.09 u[IU]/mL 0.47-4.68 Final [facility] Plasma u[IU]/mL Count Hospital L ab (Internal) : [address] 01/29/2020 RBC BLD ? Macro moderate ? Final Nort h Morphology, Count Blood Hospital L ab (Internal) : [address] t ? ? BLD ? Schist rare ? Final [facility] L ab (Internal) : [address] ? ? BLD ? Teardrop rare ? Final [facility] L ab (Internal) : [address] t 11/04/2019 CBC W/ Auto BLD Low Wbc 4.0 10*3/uL 5.0-10.0 F inal [place] Diff 10*3/uL [facility] L ab (Internal) : [address] t ? ? BLD Low Rbc 2.38 10*6/uL 4.10-5.30 Final N orth 10*6/uL [facility] ([facility] : [address] t ? ? BLD Low Hgb 8.0 g/dL 12.0-16.0 Final [place] g/dL [facility] L ab (Internal) : [address] ? ? BLD Low Hct 26.4 % 37.0-47.0 Final [place] % [facility] L ab (Internal) : [address] t ? ? BLD High Mcv 110.9 fL 80.0-96.0 Final [place] fL [facility] L ab (Internal) : [address] ? ? BLD High Mch 33.6 pg 26.0-32.0 Final [place] pg [facility] L ab (Internal) : [address] ? ? BLD Low Mchc 30.3 g/dL 31.0-35.0 Final Nort [facility] g/dL [facility] L [facility] (Internal) : [address] t ? ? BLD High Rdw 19.7 % 11.5-14.5 Final [facility] Hospital L ab (Internal) : [address] ? ? BLD Low Plt 115 10*3/uL 130-450 Final Nort h 10*3/uL [facility] L [facility] (Internal) : [address] 11/04/2019 Creatinine, S ? Crea 0.70 mg/dL 0.52-1.04 F inal [place] Serum or mg/dL [facility] L ab (Internal) : [address] 11/04/2019 Lipid S High Chol 220 mg/dL 50-200 Final Nor th Panel, mg/dL [facility] Serum [facility] L ab (Internal) : [address] ? ? S High Trig 268 mg/dL 10-150 Final [facility] mg/dL [facility] (Internal) : [address] t ? ? S ? Hdl 46 mg/dL 40-60 Final [place] mg/dL [facility] (Internal) : [address] t ? ? S ? Ldl 120 mg/dL 0-130 Final [place] mg/dL [facility] L ab (Internal) : [address] t 11/04/2019 Differentia BLD ? Polys 43 % 40-75 % Final [facility], Manual, Countr y Blood Hospital L ab (Internal) : [address] ? ? BLD ? Bands 1 % 0-5 % Final [facility] Hospital L ab (Internal) : [address] t ? ? BLD High Lymphs 51 % 20-50 % Final [facility] Hospital L ab (Internal) : [address] ? ? BLD Low Ciales 1 % 2-10 % Final [facility] Hospital L ab (Internal) : [address] ? ? BLD ? Eos 1 % 0-6 % Final [facility] Hospital L ab (Internal) : [address] ? ? BLD ? Baso 0 % 0-1 % Final [facility] L ab (Internal) : [address] t ? ? BLD ? Atyp 3 % ? Final [facility] L ab (Internal) : [address] ? ? BLD ? Plts, adequate adequate Final [facility] L ab (Internal) : [address] t ? ? BLD ABNORMA RBC abnormal normal Final [facility] Morpholog [facility] L [facility] (Internal) : [address] t ? ? BLD ? Aniso moderate ? Final [facility] ab (Internal) : [address] t ? ? BLD ? Macro small ? Final [facility] ab (Internal) : [address] t ? ? BLD ? Schist occasional ? Final [facility] L ab (Internal) : [address] t ? ? BLD ? Teardrop occasional ? Final [facility] Hospital L ab (Internal) : [address] ? ? BLD ? Oval occasional ? Final [facility] ab (Internal) : [address] 11/04/2019 Neutrophil BLD ? Anc-manu 1.74 10*3/uL ? Final [facility] Absolute Hospital Lab (Anc), (Internal) : Blood [address] 10/27/2019 Ca 125, S High Ca 125 46 U/mL <30 U/mL Final N orth Serum [facility] L ab (Internal) : [address] 10/27/2019 CMP, Serum S - g/r 97 mg/dL 74-106 Final [place] or Plasma mg/dL [facility] L ab (Internal) : [address] t ? ? S - Bun 13 mg/dL 7-17 Final [place] mg/dL [facility] L [facility] (Internal) : [address] t ? ? S - Crea 0.60 mg/dL 0.52-1.04 Final [facility] mg/dL [facility] L [facility] (Internal) : [address] t ? ? S - Ca 9.0 mg/dL 8.4-10.2 Final [facility] mg/dL [facility] (Internal) : [address] t ? ? S - Na 139 mmol/L 137-145 Final [place] mmol/L [facility] L ab (Internal) : [address] t ? ? S - K 3.9 mmol/L 3.5-5.1 Final [facility] mmol/L [facility] (Internal) : [address] t ? ? S - Cl 105 mmol/L 98-107 Final [place] mmol/L [facility] L ab (Internal) : [address] ? ? S - Tco2 25.0 mmol/L 22.0-30.0 Final No rth mmol/L [facility] L ab (Internal) : [address] ? ? S - Tp 6.8 g/dL 6.3-8.2 Final [facility] g/dL [facility] (Internal) : [address] t ? ? S - Alb 3.6 g/dL 3.5-5.0 Final [facility] g/dL [facility] (Internal) : [address] ? ? S - Tbil 0.2 mg/dL 0.2-1.3 Final [place] mg/dL [facility] L ab (Internal) : [address] ? ? S - Alp 100 U/L 38-126 Final [place] U/L [facility] L ab (Internal) : [address] t ? ? S - Alt 21 U/L 9-52 U/L Final [place] (Sgpt) [facility] L ab (Internal) : [address] t ? ? S High Ast 38 U/L 14-36 U/L Final [place] (Sgot) [facility] L ab (Internal) : [address] 10/27/2019 RBC BLD - Aniso large ? Final [place] Morphology, Count Blood Hospital L ab (Internal) : [address] t ? ? BLD - Macro moderate ? Final [facility] L ab (Internal) : [address] t ? ? BLD - Polychro rare ? Final [facility] L ab (Internal) : [address] t ? ? BLD - Schist occasional ? Final [facility] L ab (Internal) : [address] t ? ? BLD - Teardrop occasional ? Final [facility] L ab (Internal) : [address] 10/27/2019 CBC W/ Auto BLD - Wbc 7.7 10*3/uL 5.0-10.0 F inal [place] Diff 10*3/uL [facility] L ab (Internal) : [address] t ? ? BLD Low Rbc 2.19 10*6/uL 4.10-5.30 Final N orth 10*6/uL [facility] L ab (Internal) : [address] t ? ? BLD Low Hgb 7.4 g/dL 12.0-16.0 Final [place] g/dL [facility] L ab (Internal) : [address] t ? ? BLD Low Hct 23.9 % 37.0-47.0 Final [facility] L ab (Internal) : [address] t ? ? BLD High Mcv 109.1 fL 80.0-96.0 Final [facility] Hospital L ab (Internal) : [address] t ? ? BLD High Mch 33.8 pg 26.0-32.0 Final [facility] L ab (Internal) : [address] t ? ? BLD - Mchc 31.0 g/dL 31.0-35.0 Final Nort h g/dL [facility] L ab (Internal) : [address] t ? ? BLD High Rdw 21.5 % 11.5-14.5 Final [facility] Hospital L ab (Internal) : [address] t ? ? BLD Low Plt 86 10*3/uL 130-450 Final [place] 10*3/uL [facility] L ab (Internal) : [address] t ? ? BLD - Anc 4.69 10*3/uL ? Final Nort h [facility] L ab (Internal) : [address] t ? ? BLD - Neutro 61.2 % 40.0-75.0 Final [facility] L ab (Internal) : [address] ? ? BLD - Lymph 27.3 % 20.0-50.0 Final [facility] L ab (Internal) : [address] ? ? BLD High Ciales 10.4 % 2.0-10.0 Final [facility] L ab (Internal) : [address] t ? ? BLD Low Eos 0.4 % 1.0-6.0 % Final [facility] L ab (Internal) : [address] t ? ? BLD - Baso 0.3 % 0.0-1.0 % Final [facility] L ab (Internal) : [address] t ? ? BLD - Ig 0.4 % 0.0-0.9 % Final [facility] L ab (Internal) : [address] t 10/06/2019 Ca 125, S High Ca 125 58 U/mL <30 U/mL Final N orth Serum [facility] L ab (Internal) : [address] 10/06/2019 RBC BLD - Aniso small ? Final [place] Morphology, Count Blood Hospital L ab (Internal) : [address] t ? ? BLD - Macro small ? Final [facility] L ab (Internal) : [address] t ? ? BLD - Oval small ? Final [facility] L ab (Internal) : [address] t 10/06/2019 CMP, Serum S - g/r 79 mg/dL 74-106 Final [place] or Plasma mg/dL [facility] L [facility] (Internal) : [address] t ? ? S High Bun 18 mg/dL 7-17 Final [facility] mg/dL [facility] L [facility] (Internal) : [address] t ? ? S - Crea 0.70 mg/dL 0.52-1.04 Final [facility] mg/dL [facility] L ab (Internal) : [address] t ? ? S - Ca 9.3 mg/dL 8.4-10.2 Final [facility] mg/dL [facility] (Internal) : [address] t ? ? S - Na 142 mmol/L 137-145 Final [place] mmol/L [facility] (Internal) : [address] t ? ? S - K 4.0 mmol/L 3.5-5.1 Final [place] mmol/L [facility] (Internal) : [address] t ? ? S - Cl 106 mmol/L 98-107 Final [place] mmol/L [facility] L [facility] (Internal) : [address] t ? ? S - Tco2 25.0 mmol/L 22.0-30.0 Final No rth mmol/L [facility] L ab (Internal) : [address] t ? ? S - Tp 7.1 g/dL 6.3-8.2 Final [facility] g/dL [facility] (Internal) : [address] t ? ? S - Alb 3.8 g/dL 3.5-5.0 Final [facility] g/dL [facility] (Internal) : [address] t ? ? S - Tbil 0.2 mg/dL 0.2-1.3 Final [facility] mg/dL [facility] L [facility] (Internal) : [address] ? ? S - Alp 102 U/L 38-126 Final [facility] U/L [facility] (Internal) : [address] ? ? S - Alt 21 U/L 9-52 U/L Final [facility] (Sgpt) [facility] (Internal) : [address] ? ? S High Ast 39 U/L 14-36 U/L Final [place] (Sgot) [facility] L ab (Internal) : [address] 10/06/2019 CBC W/ Auto BLD - Wbc 8.7 10*3/uL 5.0-10.0 F inal [place] Diff 10*3/uL [facility] L ab (Internal) : [address] t ? ? BLD Low Rbc 2.89 10*6/uL 4.10-5.30 Final N orth 10*6/uL [facility] L ab (Internal) : [address] ? ? BLD Low Hgb 9.1 g/dL 12.0-16.0 Final [place] g/dL [facility] L ab (Internal) : [address] t ? ? BLD Low Hct 30.1 % 37.0-47.0 Final [facility] L ab (Internal) : [address] t ? ? BLD High Mcv 104.2 fL 80.0-96.0 Final [facility] Hospital L ab (Internal) : [address] t ? ? BLD - Mch 31.5 pg 26.0-32.0 Final [facility] Hospital L ab (Internal) : [address] t ? ? BLD Low Mchc 30.2 g/dL 31.0-35.0 Final Nort h g/dL [facility] L ab (Internal) : [address] t ? ? BLD High Rdw 23.1 % 11.5-14.5 Final [facility] L ab (Internal) : [address] t ? ? BLD Low Plt 126 10*3/uL 130-450 Final Nort h 10*3/uL [facility] L ab (Internal) : [address] t ? ? BLD - Anc 5.53 10*3/uL ? Final Nort h [facility] L ab (Internal) : [address] t ? ? BLD - Neutro 63.7 % 40.0-75.0 Final [facility] L ab (Internal) : [address] ? ? BLD - Lymph 25.3 % 20.0-50.0 Final [facility] L ab (Internal) : [address] t ? ? BLD - Ciales 10.0 % 2.0-10.0 Final [facility] L ab (Internal) : [address] t ? ? BLD Low Eos 0.2 % 1.0-6.0 % Final [facility] L ab (Internal) : [address] t ? ? BLD - Baso 0.5 % 0.0-1.0 % Final [facility] L ab (Internal) : [address] t ? ? BLD - Ig 0.3 % 0.0-0.9 % Final [facility] L ab (Internal) : [address] t 08/30/2019 CBC W/ Auto BLD CRITICA Wbc 29.5 10*3/uL 5.0-10.0 Final [place] Diff L HIGH 10*3/uL [facility] L ab (Internal) : [address] t ? ? BLD Low Rbc 3.26 10*6/uL 4.10-5.30 Final N orth 10*6/uL [facility] L ab (Internal) : [address] t ? ? BLD Low Hgb 10.0 g/dL 12.0-16.0 Final Nort h g/dL [facility] L ab (Internal) : [address] t ? ? BLD Low Hct 31.4 % 37.0-47.0 Final [facility] L ab (Internal) : [address] t ? ? BLD High Mcv 96.3 fL 80.0-96.0 Final [facility] Hospital L ab (Internal) : [address] t ? ? BLD - Mch 30.7 pg 26.0-32.0 Final [facility] L ab (Internal) : [address] t ? ? BLD - Mchc 31.8 g/dL 31.0-35.0 Final Nort h g/dL [facility] L ab (Internal) : [address] t ? ? BLD High Rdw 21.4 % 11.5-14.5 Final [facility] L ab (Internal) : [address] t ? ? BLD Low Plt 124 10*3/uL 130-450 Final Nort h 10*3/uL [facility] L ab (Internal) : [address] 08/30/2019 CMP, Serum S High g/r 118 mg/dL 74-106 Final North or Plasma mg/dL [facility] L [facility] (Internal) : [address] t ? ? S - Bun 17 mg/dL 7-17 Final [facility] mg/dL [facility] (Internal) : [address] t ? ? S - Crea 0.60 mg/dL 0.52-1.04 Final Nor th mg/dL [facility] L ab (Internal) : [address] t ? ? S - Ca 9.2 mg/dL 8.4-10.2 Final [facility] mg/dL [facility] (Internal) : [address] t ? ? S - Na 141 mmol/L 137-145 Final [facility] mmol/L [facility] (Internal) : [address] t ? ? S - K 3.5 mmol/L 3.5-5.1 Final [facility] mmol/L [facility] (Internal) : [address] t ? ? S High Cl 108 mmol/L 98-107 Final [facility] mmol/L [facility] L ab (Internal) : [address] ? ? S - Tco2 23.0 mmol/L 22.0-30.0 Final No rth mmol/L [facility] L ab (Internal) : [address] ? ? S - Tp 7.0 g/dL 6.3-8.2 Final [facility] g/dL [facility] L [facility] (Internal) : [address] t ? ? S - Alb 3.8 g/dL 3.5-5.0 Final [facility] g/dL [facility] ab (Internal) : [address] ? ? S - Tbil 0.7 mg/dL 0.2-1.3 Final [facility] mg/dL [facility] (Internal) : [address] ? ? S - Alp 114 U/L 38-126 Final [facility] U/L [facility] (Internal) : [address] ? ? S - Alt 27 U/L 9-52 U/L Final [place] (Sgpt) [facility] L ab (Internal) : [address] ? ? S High Ast 44 U/L 14-36 U/L Final [place] (Sgot) [facility] L ab (Internal) : [address] 08/30/2019 Lipase, S - Lip 85 U/L 23-300 Final [place] Serum or U/L [facility] Plasma Hospital L ab (Internal) : [address] 08/30/2019 Differentia BLD High Polys 84 % 40-75 % Final [facility] Manual, Countr y Blood Hospital L ab (Internal) : [address] ? ? BLD - Bands 4 % 0-5 % Final [facility] L ab (Internal) : [address] ? ? BLD Low Lymphs 8 % 20-50 % Final [facility] L ab (Internal) : [address] ? ? BLD - Ciales 3 % 2-10 % Final [facility] L ab (Internal) : [address] ? ? BLD - Eos 0 % 0-6 % Final [facility] L ab (Internal) : [address] ? ? BLD - Baso 1 % 0-1 % Final [facility] ab (Internal) : [address] ? ? BLD - Atyp 0 % ? Final [facility] L ab (Internal) : [address] ? ? BLD ABNORMA Plts, low adequate Final [facility] L ab (Internal) : [address] ? ? BLD ABNORMA RBC abnormal normal Final [facility] Morpholog [facility] Hospital L ab (Internal) : [address] ? ? BLD - Aniso small ? Final [facility] ab (Internal) : [address] t ? ? BLD - Poik small [hpf] ? Final [facility] ab (Internal) : [address] ? ? BLD - Roulx small ? Final [facility] ab (Internal) : [address] 08/30/2019 Neutrophil BLD - Anc-manu 25.95 10*3/uL ? Final [place] Count, al [facility] Lab (Anc), (Internal) : Blood [address] 08/30/2019 Urinalysis, UR - UA-color pale yellow pale Final [place] Dipstick, yellow [facility] L ab Micro (Internal) : [address] t ? ? UR - UA-appea clear clear Final [facility] ab (Internal) : [address] t ? ? UR - UA-spec 1.010 1.003-1.0 Final [place] Grav 35 [facility] ab (Internal) : [address] ? ? UR - UA-pH 7.0 [pH] 4.6-8.0 Final [place] [pH] [facility] ab (Internal) : [address] ? ? UR - UA-leuk negative negative Final [facility] ab (Internal) : [address] t ? ? UR - UA-nitri negative negative Final [facility] ab (Internal) : [address] t ? ? UR ABNORMA UA-prot trace negative Final [facility] ab (Internal) : [address] ? ? UR - UA-gluc negative negative Final [facility] ab (Internal) : [address] ? ? UR - UA-keton negative negative Final [facility] ab (Internal) : [address] t ? ? UR - UA-urobi normal normal Final [facility] ab (Internal) : [address] t ? ? UR - UA-bili negative negative Final [facility] ab (Internal) : [address] t ? ? UR ABNORMA UA-blood trace negative [facility] ([facility] : [address] 08/30/2019 Urinalysis, UR - UA-WBC 0-3 [hpf] 0-3 [hpf] F inal [place] Microscopic Count [facility] ab (Internal) : [address] ? ? UR - UA-RBC 0-2 [hpf] 0-2 [hpf] Final [facility] th [facility] L ab (Internal) : [address] ? ? UR - UA-bacte rare [hpf] none seen Final [place] lamont [hpf] [facility] L ab (Internal) : [address] ? ? UR - UA-epith rare [hpf] none seen Final [place] elial [hpf] [facility] L ab (Internal) : [address] ? ? UR ABNORMA UA-mucus rare [hpf] none seen Final [place] L [hpf] [facility] L ab (Internal) : [address] t 08/30/2019 Lactic S High La 2.3 mmol/L 0.7-2.1 Final N orth Acid, Blood mmol/L Count Hospital L ab (Internal) : [address] 08/30/2019 Culture, BLD - Final microbiology ? Final [place] Blood 1 results [facility] L ab (Internal) : [address] 08/30/2019 Culture, BLD - Final microbiology ? Final [place] Blood 2 results [facility] L ab (Internal) : [address] t 08/30/2019 CBC W/ Auto BLD CRITICA Wbc 28.8 10*3/uL 5.0-10.0 Final [place] Diff L HIGH 10*3/uL [facility] L ab (Internal) : [address] ? ? BLD Low Rbc 3.37 10*6/uL 4.10-5.30 Final N orth 10*6/uL [facility] L ab (Internal) : [address] ? ? BLD Low Hgb 10.5 g/dL 12.0-16.0 Final Nort h g/dL [facility] L ab (Internal) : [address] ? ? BLD Low Hct 32.2 % 37.0-47.0 Final [facility] L ab (Internal) : [address] ? ? BLD - Mcv 95.5 fL 80.0-96.[address] [facility] L ab (Internal) : [address] ? ? BLD - Mch 31.2 pg 26.0-32.0 Final [facility] pg [facility] ab (Internal) : [address] ? ? BLD - Mchc 32.6 g/dL 31.0-35.0 Final Nort [facility] g/dL [facility] ab (Internal) : [address] t ? ? BLD High Rdw 21.4 % 11.5-14.5 Final [facility] % [facility] L ab (Internal) : [address] ? ? BLD Low Plt 119 10*3/uL 130-450 Final Nort h 10*3/uL [facility] (Internal) : [address] 08/30/2019 CRP, High S High Rcrp 0.53 mg/dL 0.10-0.30 Fin al [place] Sensitivity mg/dL Count ry , Serum or Hospit al Lab Plasma (Internal) : [address] 08/30/2019 CMP, Serum S High g/r 127 mg/dL 74-106 Final [place] or Plasma mg/dL [facility] L ab (Internal) : [address] ? ? S - Bun 11 mg/dL 7-17 Final [place] mg/dL [facility] L ab (Internal) : [address] ? ? S Low Crea 0.50 mg/dL 0.52-1.04 Final Nor th mg/dL [facility] ab (Internal) : [address] ? ? S - Ca 9.5 mg/dL 8.4-10.2 Final [place] mg/dL [facility] L ab (Internal) : [address] ? ? S - Na 137 mmol/L 137-145 Final [place] mmol/L [facility] L ab (Internal) : [address] ? ? S Low K 3.2 mmol/L 3.5-5.1 Final [facility] mmol/L [facility] (Internal) : [address] ? ? S - Cl 101 mmol/L 98-107 Final [place] mmol/L [facility] L ab (Internal) : [address] ? ? S - Tco2 23.0 mmol/L 22.0-30.0 Final No rth mmol/L [facility] L ab (Internal) : [address] ? ? S - Tp 7.8 g/dL 6.3-8.2 Final [place] g/dL [facility] L ab (Internal) : [address] ? ? S - Alb 4.2 g/dL 3.5-5.0 Final [place] g/dL [facility] L ab (Internal) : [address] ? ? S - Tbil 1.1 mg/dL 0.2-1.3 Final [place] mg/dL [facility] L ab (Internal) : [address] ? ? S High Alp 135 U/L 38-126 Final [place] U/L [facility] L ab (Internal) : [address] ? ? S - Alt 29 U/L 9-52 U/L Final [place] (Sgpt) [facility] L ab (Internal) : [address] ? ? S High Ast 44 U/L 14-36 U/L Final [place] (Sgot) [facility] L ab (Internal) : [address] 08/30/2019 Differentia BLD High Polys 87 % 40-75 % Final [facility], Manual, Countr y Blood Hospital L ab (Internal) : [address] ? ? BLD High Bands 8 % 0-5 % Final [facility] L ab (Internal) : [address] ? ? BLD Low Lymphs 1 % 20-50 % Final [facility] L ab (Internal) : [address] ? ? BLD Low Ciales 1 % 2-10 % Final [facility] L ab (Internal) : [address] ? ? BLD - Eos 0 % 0-6 % Final [facility] L ab (Internal) : [address] ? ? BLD - Baso 0 % 0-1 % Final [facility] ab (Internal) : [address] ? ? BLD - Atyp 0 % ? Final [facility] L ab (Internal) : [address] ? ? BLD - Seymour 3 % ? Final [facility] L ab (Internal) : [address] ? ? BLD ABNORMA Plts, low adequate Final [facility] L ab (Internal) : [address] ? ? BLD ABNORMA RBC abnormal normal Final [facility] Morpholog [facility] Hospital L ab (Internal) : [address] ? ? BLD - Aniso small ? Final [facility] Hospital L ab (Internal) : [address] ? ? BLD - Poik small [hpf] ? Final [facility] L ab (Internal) : [address] [facility] 08/30/2019 Neutrophil BLD - Anc-manu 27.32 10*3/uL ? Final [place] Count, [facility] Lab (Anc), (Internal) : Blood [address] [facility] 02/27/2019 Creatinine, S - Crea 0.60 mg/dL 0.52-1.04 F [facility] Serum or mg/dL [facility] L ab (Internal) : [address] 12/26/2018 Bun (Blood S High Bun 26 mg/dL 7-17 [facility] Urea mg/dL [facility] Nitrogen), Hospit al Lab Serum or (Interna l): Plasma [address] [facility] 12/26/2018 Creatinine, S - Crea 0.90 mg/dL 0.52-1.04 F [facility] Serum or mg/dL [facility] L ab (Internal) : [address] [facility] 12/26/2018 Phosphorus, S - Phos 3.8 mg/dL 2.5-4.5 [facility] Serum or mg/dL [facility] L ab (Internal) : [address] [facility] 12/26/2018 Calcium, S - Ca 9.4 mg/dL 8.4-10.2 [facility] Serum or mg/dL [facility] (Internal) : [address] [facility] 07[facility]/2018 CBC W/ Auto BLD - Wbc 8.4 10*3/uL 5.0-10.0 F inal [place] Diff 10*3/uL [facility] L ab (Internal) : [address] ? ? BLD Low Rbc 3.80 10*6/uL 4.10-5.30 Final N orth 10*6/uL [facility] Hospital L ab (Internal) : [address] ? ? BLD Low Hgb 11.6 g/dL 12.0-16.0 Final Nort h g/dL [facility] L ab (Internal) : [address] ? ? BLD - Hct 37.6 % 37.0-47.0 Final [facility] Hospital L ab (Internal) : [address] ? ? BLD High Mcv 98.9 fL 80.0-96.0 Final [facility] Hospital L ab (Internal) : [address] ? ? BLD - Mch 30.5 pg 26.0-32.0 Final [facility] Hospital L ab (Internal) : [address] ? ? BLD Low Mchc 30.9 g/dL 31.0-35.0 Final Nort h g/dL [facility] L ab (Internal) : [address] ? ? BLD High Rdw 14.6 % 11.5-14.5 Final [facility] Hospital L ab (Internal) : [address] ? ? BLD - Plt 326 10*3/uL 130-450 Final Nort h 10*3/uL [facility] L ab (Internal) : [address] ? ? BLD - Anc 4.19 10*3/uL ? Final Nort h [facility] L ab (Internal) : [address] ? ? BLD - Neutro 49.7 % 40.0-75.0 Final [facility] Hospital L ab (Internal) : [address] ? ? BLD - Lymph 30.9 % 20.0-50.0 Final [facility] Hospital L ab (Internal) : [address] ? ? BLD High Ciales 13.7 % 2.0-10.0 Final [facility] Hospital L ab (Internal) : [address] ? ? BLD - Eos 5.1 % 1.0-6.0 % Final [facility] Hospital L ab (Internal) : [address] ? ? BLD - Baso 0.5 % 0.0-1.0 % Final [facility] L ab (Internal) : [address] t ? ? BLD - Ig 0.1 % 0.0-0.9 % Final [facility] L ab (Internal) : [address] 07/18/2018 CMP, Serum S - g/r 82 mg/dL 74-106 Final [facility] or Plasma mg/dL [facility] ([facility] : [address] t ? ? S - Bun 17 mg/dL 7-17 Final [place] mg/dL [facility] L ab (Internal) : [address] t ? ? S - Crea 0.70 mg/dL 0.52-1.04 Final Nor th mg/dL [facility] L [facility] (Internal) : [address] t ? ? S - Ca 9.1 mg/dL 8.4-10.2 Final [facility] mg/dL [facility] (Internal) : [address] t ? ? S - Na 140 mmol/L 137-145 Final [place] mmol/L [facility] L ab (Internal) : [address] t ? ? S - K 3.8 mmol/L 3.5-5.1 Final [place] mmol/L [facility] L ab (Internal) : [address] t ? ? S - Cl 107 mmol/L 98-107 Final [place] mmol/L [facility] L ab (Internal) : [address] t ? ? S - Tco2 26.0 mmol/L 22.0-30.0 Final No rth mmol/L [facility] L [facility] (Internal) : [address] t ? ? S - Tp 7.1 g/dL 6.3-8.2 Final [facility] g/dL [facility] L [facility] (Internal) : [address] t ? ? S - Alb 3.9 g/dL 3.5-5.0 Final [place] g/dL [facility] L ab (Internal) : [address] t ? ? S - Tbil 0.3 mg/dL 0.2-1.3 Final [place] mg/dL [facility] L ab (Internal) : [address] t ? ? S - Alp 86 U/L 38-126 Final [place] U/L [facility] L ab (Internal) : [address] t ? ? S - Alt 29 U/L 9-52 U/L Final [place] (Sgpt) [facility] L ab (Internal) : [address] t ? ? S High Ast 42 U/L 14-36 U/L Final [place] (Sgot) [facility] L ab (Internal) : [address] 07/18/2018 RBC BLD - Oval occasional ? Final No rth Morphology, Count Blood Hospital L ab (Internal) : [address] 02/19/2018 CMP, Serum S - g/r 75 mg/dL 74-106 Final [place] or Plasma mg/dL [facility] (Internal) : [address] t ? ? S - Bun 16 mg/dL 7-17 Final [place] mg/dL [facility] L ab (Internal) : [address] t ? ? S - Crea 0.80 mg/dL 0.52-1.04 Final Nor th mg/dL [facility] L [facility] (Internal) : [address] t ? ? S - Ca 9.2 mg/dL 8.4-10.2 Final [facility] mg/dL [facility] (Internal) : [address] t ? ? S - Na 142 mmol/L 137-145 Final [place] mmol/L [facility] L ab (Internal) : [address] t ? ? S - K 4.0 mmol/L 3.5-5.1 Final [place] mmol/L [facility] L ab (Internal) : [address] t ? ? S High Cl 108 mmol/L 98-107 Final [place] mmol/L [facility] L ab (Internal) : [address] t ? ? S - Tco2 27.0 mmol/L 22.0-30.0 Final No rth mmol/L [facility] L ab (Internal) : [address] t ? ? S - Tp 6.6 g/dL 6.3-8.2 Final [place] g/dL [facility] L ab (Internal) : [address] t ? ? S - Alb 3.8 g/dL 3.5-5.0 Final [place] g/dL [facility] L ab (Internal) : [address] t ? ? S - Tbil 0.2 mg/dL 0.2-1.3 Final [place] mg/dL [facility] L ab (Internal) : [address] t ? ? S - Alp 81 U/L 38-126 Final [place] U/L [facility] L ab (Internal) : [address] t ? ? S - Alt 25 U/L 9-52 U/L Final [place] (Sgpt) [facility] L ab (Internal) : [address] ? ? S High Ast 38 U/L 14-36 U/L Final [place] (Sgot) [facility] L ab (Internal) : [address] 02/19/2018 CBC W/ Auto BLD - Wbc 9.5 10*3/uL 5.0-10.0 F inal [place] Diff 10*3/uL [facility] (Internal) : [address] ? ? BLD Low Rbc 3.67 10*6/uL 4.10-5.30 Final N orth 10*6/uL [facility] (Internal) : [address] ? ? BLD Low Hgb 11.1 g/dL 12.0-16.0 Final Nort h g/dL [facility] L ab (Internal) : [address] ? ? BLD Low Hct 36.5 % 37.0-47.0 Final [place] % [facility] L ab (Internal) : [address] t ? ? BLD High Mcv 99.5 fL 80.0-96.0 Final [facility] Hospital L ab (Internal) : [address] ? ? BLD - Mch 30.2 pg 26.0-32.0 Final [place] pg [facility] L ab (Internal) : [address] ? ? BLD Low Mchc 30.4 g/dL 31.0-35.0 Final Nort h g/dL [facility] L ab (Internal) : [address] ? ? BLD - Rdw 14.2 % 11.5-14.5 Final [facility] L ab (Internal) : [address] ? ? BLD - Plt 324 10*3/uL 130-450 [facility] L ab (Internal) : [address] ? ? BLD - Anc 5.77 10*3/uL ? Final Nort h [facility] L ab (Internal) : [address] ? ? BLD - Neutro 60.6 % 40.0-75.0 Final [facility] L ab (Internal) : [address] ? ? BLD - Lymph 24.6 % 20.0-50.0 Final [facility] L ab (Internal) : [address] ? ? BLD - Ciales 9.6 % 2.0-10.0 Final [facility] L ab (Internal) : [address], Angella [address] ? ? BLD - Eos 4.6 % 1.0-6.0 % Final [facility] L ab (Internal) : [address], Angella [address]varez ? ? BLD - Baso 0.4 % 0.0-1.0 % Final [facility] L ab (Internal) : [address], Angella [address]varez ? ? BLD - Ig 0.2 % 0.0-0.9 % Final [facility] L ab (Internal) : [address] 01/18/2018 Venipunctur BLD ? Venpn* ? ? Final [facility] L ab (Internal) : [address] 01/18/2018 Vitamin S High Vit B12 >1000.0 pg/mL 239.0-931 Final [place] B12, Serum .0 pg/mL Replaced by [facility] L ab (Internal) : [address] 01/18/2018 Methylmalon S ? Methylma 0.12 nmol/mL <=0.40 Final [place] ate, QN, lonic nmol/mL [facility] Serum or Acid, Qn, Hospi aquilino Lab Plasma S (Internal) : [address] 01/17/2018 Drug UR ? Thc negative neg (50 Final Nor th Screen, NG/mL NG/mL) [facility] Urine NG/mL Hospital L ab (Internal) : [address] t ? ? UR ? Pcp negative neg (25 Final [facility] NG/mL) [facility] L [facility] (Internal) : [address] ? ? UR ? Fay negative neg (150 Final [facility] NG/mL) [facility] L ab (Internal) : [address] Jerome[address] t ? ? UR ? Met negative neg (500 Final [place] NG/mL) [facility] L ab (Internal) : [address] ? ? UR ? Opi negative neg (100 Final [place] NG/mL) [facility] L ab (Internal) : [address] ? ? UR ? Amp negative neg (500 Final [place] NG/mL) [facility] L ab (Internal) : [address], [address] t ? ? UR ? Bzo negative neg (150 Final [place] NG/mL) [facility] L ab (Internal) : [address] t ? ? UR ? Tca negative neg (300 Final [place] NG/mL) [facility] L ab (Internal) : [address]ella t ? ? UR ? Mtd negative neg (200 Final [place] NG/mL) [facility] L ab (Internal) : [address] t ? ? UR ? Bar negative neg (200 Final [place] NG/mL) [facility] L ab (Internal) : [address], Jerome[address] t ? ? UR ? Oxy negative neg (100 Final [place] NG/mL) [facility] L ab (Internal) : [address] t ? ? UR ? Ppx negative neg (300 Final [place] NG/mL) [facility] L ab (Internal) : [address], Jerome[address] t ? ? UR ? Bup negative neg (10 Final [place] NG/mL) [facility] Hospital L ab (Internal) : [address] 08/06/2017 Venipunctur BLD ? Venpn* ? ? Final [place] e [facility] L ab (Internal) : [address] 08/06/2017 Neutrophil BLD ? Anc-manu 4.58 10*3/uL ? Final [place] Count, al [facility] Hospital Lab (Anc), (Internal) : Blood [address] 08/06/2017 Differentia BLD ? Polys 43 % 40-75 % Final [place] l, Manual, Countr y Blood Hospital L ab (Internal) : [address] ? ? BLD ? Bands 0 % 0-5 % Final [facility] L ab (Internal) : [address] ? ? BLD ? Lymphs 22 % 20-50 % Final [facility] L ab (Internal) : [address] ? ? BLD High Ciales 11 % 2-10 % Final [facility] L ab (Internal) : [address] ? ? BLD High Eos 23 % 0-6 % Final [facility] L ab (Internal) : [address] ? ? BLD ? Baso 1 % 0-1 % Final [facility] L ab (Internal) : [address] ? ? BLD ? Atyp 0 % ? Final [facility] Hospital L ab (Internal) : [address] ? ? BLD ? Plts, adequate adequate Final [place] Est[facility] L [facility] (Internal) : [address] ? ? BLD ? RBC normal normal Final [place] Morpholog [facility] L [facility] (Internal) : [address] 08/06/2017 Lipid S ? Chol 171 mg/dL 50-200 Final Nor th Panel, mg/dL [facility] Serum Hospital L ab (Internal) : [address] ? ? S ? Trig 62 mg/dL 10-150 Final [place] mg/dL [facility] L ab (Internal) : [address] ? ? S ? Hdl 47 mg/dL 40-60 Final [facility] mg/dL [facility] (Internal) : [address] ? ? S ? Ldl 112 mg/dL 0-130 Final [facility] mg/dL [facility] L [facility] (Internal) : [address] 08/06/2017 BMP, Serum S ? g/r 99 mg/dL 74-106 Final [place] or Plasma mg/dL [facility] L [facility] (Internal) : [address] ? ? S ? Bun 16 mg/dL 7-17 Final [place] mg/dL [facility] L ab (Internal) : [address] t ? ? S ? Crea 0.70 mg/dL 0.52-1.04 Final [facility] th mg/dL [facility] L [facility] (Internal) : [address] t ? ? S ? Ca 9.1 mg/dL 8.4-10.2 Final [facility] mg/dL [facility] L [facility] (Internal) : [address] t ? ? S ? Na 141 mmol/L 137-145 Final [facility] mmol/L [facility] L [facility] (Internal) : [address] t ? ? S ? K 3.9 mmol/L 3.5-5.1 Final [facility] mmol/L [facility] L [facility] (Internal) : [address] t ? ? S ? Cl 107 mmol/L 98-107 Final [place] mmol/L [facility] L ab (Internal) : [address] t ? ? S ? Tco2 24.0 mmol/L 22.0-30.0 Final No rth mmol/L [facility] L ab (Internal) : [address] t 08/06/2017 CBC W/ Auto BLD High Wbc 10.6 10*3/uL 5.0-10.0 Final [place] Diff 10*3/uL [facility] L ab (Internal) : [address] t ? ? BLD Low Rbc 3.68 10*6/uL 4.10-5.30 Final N orth 10*6/uL [facility] L ab (Internal) : [address] t ? ? BLD Low Hgb 11.0 g/dL 12.0-16.0 Final Nort h g/dL [facility] L ab (Internal) : [address] t ? ? BLD Low Hct 35.2 % 37.0-47.0 Final [place] % [facility] L ab (Internal) : [address] t ? ? BLD ? Mcv 95.7 fL 80.0-96.0 Final [place] fL [facility] L ab (Internal) : [address] ? ? BLD ? Mch 29.9 pg 26.0-32.0 Final [place] pg [facility] L ab (Internal) : [address] ? ? BLD ? Mchc 31.3 g/dL 31.0-35.0 Final Nort h g/dL [facility] L ab (Internal) : [address] t ? ? BLD High Rdw 14.9 % 11.5-14.5 Final North % [facility] Hospital L ab (Internal) : [address] ? ? BLD ? Plt 381 10*3/uL 130-450 Final Nort h 10*3/uL [facility] Hospital L ab (Internal) : [address] t 05/25/2017 Venipunctur BLD ? Venpn* ? ? Final [facility] e [facility] L [facility] (Internal) : [address] t 05/25/2017 Drug UR ? Thc negative neg (50 Final Nor th Screen, NG/mL NG/mL) [facility] Urine NG/mL Hospital L ab (Internal) : [address] ? ? UR ? Pcp negative neg (25 Final [place] NG/mL) [facility] Hospital L ab (Internal) : [address] ? ? UR ? Fay negative neg (150 Final [place] NG/mL) [facility] L ab (Internal) : [address] ? ? UR ? Met negative neg (500 Final [place] NG/mL) [facility] L ab (Internal) : [address] ? ? UR ? Opi negative neg (100 Final [place] NG/mL) [facility] L ab (Internal) : [address] t ? ? UR ? Amp negative neg (500 Final [place] NG/mL) [facility] L ab (Internal) : [address] t ? ? UR ? Bzo negative neg (150 Final [place] NG/mL) [facility] L ab (Internal) : [address] ? ? UR ? Tca negative neg (300 Final [facility] NG/mL) [facility] L ab (Internal) : [address] ? ? UR ? Mtd negative neg (200 Final [place] NG/mL) [facility] L ab (Internal) : [address] ? ? UR ? Bar negative neg (200 Final [place] NG/mL) [facility] L ab (Internal) : [address] ? ? UR ? Oxy negative neg (100 Final [place] NG/mL) [facility] L ab (Internal) : [address] ? ? UR ? Ppx negative neg (300 Final [place] NG/mL) [facility] L ab (Internal) : [address] ? ? UR ? Bup negative neg (10 Final [place] NG/mL) [facility] L ab (Internal) : [address] t 05/25/2017 Neutrophil BLD ? Anc-manu 4.00 10*3/uL ? Final [place] Count, al [facility] Lab (Anc), (Internal) : Blood [address] t 05/25/2017 Differentia BLD ? Polys 46 % 40-75 % Final [facility], Manual, Countr Blood Hospital L ab (Internal) : [address] ? ? BLD ? Bands 0 % 0-5 % Final [facility] L ab (Internal) : [address] ? ? BLD ? Lymphs 26 % 20-50 % Final [facility] L ab (Internal) : [address] ? ? BLD ? Ciales 8 % 2-10 % Final [facility] L ab (Internal) : [address] ? ? BLD High Eos 20 % 0-6 % Final [facility] L ab (Internal) : [address] ? ? BLD ? Baso 0 % 0-1 % Final [facility] L ab (Internal) : [address] ? ? BLD ? Atyp 0 % ? Final [facility] L ab (Internal) : [address] ? ? BLD ? Plts, adequate adequate Final [facility] Hospital L ab (Internal) : [address] ? ? BLD ? RBC normal normal Final [place] Morpholog [facility] Hospital L ab (Internal) : [address] t 05/25/2017 Troponin I, S ? Trop <0.06 NG/mL 0.00-0.06 Final [place] Serum or NG/mL [facility] Hospital L ab (Internal) : [address] t 05/25/2017 Lipase, S ? Lip 107 U/L 23-300 Final Nort h Serum or U/L [facility] Plasma Hospital L ab (Internal) : [address] 05/25/2017 CBC W/ Auto BLD ? Wbc 8.7 10*3/uL 5.0-10.0 F inal [place] Diff 10*3/uL [facility] Hospital L ab (Internal) : [address] ? ? BLD Low Rbc 3.96 10*6/uL 4.10-5.30 Final N orth 10*6/uL [facility] Hospital L ab (Internal) : [address] ? ? BLD Low Hgb 11.7 g/dL 12.0-16.0 Final Nort h g/dL [facility] Hospital L ab (Internal) : [address] ? ? BLD ? Hct 37.1 % 37.0-47.0 Final [facility] L ab (Internal) : [address] ? ? BLD ? Mcv 93.7 fL 80.0-96.[address] [facility] L ab (Internal) : [address] ? ? BLD ? Mch 29.5 pg 26.0-32.0 Final [place] pg [facility] L ab (Internal) : [address] ? ? BLD ? Mchc 31.5 g/dL 31.0-35.0 Final Nort h g/dL [facility] Hospital L ab (Internal) : [address] t ? ? BLD High Rdw 14.6 % 11.5-14.5 Final [facility] L ab (Internal) : [address] ? ? BLD ? Plt 375 10*3/uL 130-450 Final Nort h 10*3/uL [facility] L ab (Internal) : [address] 05/25/2017 CMP, Serum S ? g/r 94 mg/dL 74-106 Final [place] or Plasma mg/dL [facility] Hospital L ab (Internal) : [address] ? ? S ? Bun 17 mg/dL 7-17 Final [place] mg/dL [facility] L ab (Internal) : [address] ? ? S ? Crea 0.80 mg/dL 0.52-1.04 Final [facility] th mg/dL [facility] L ab (Internal) : [address] ? ? S ? Ca 9.6 mg/dL 8.4-10.2 Final [facility] mg/dL [facility] L ab (Internal) : [address] ? ? S ? Na 144 mmol/L 137-145 Final [facility] mmol/L [facility] L ab (Internal) : [address] ? ? S ? K 3.8 mmol/L 3.5-5.1 Final [facility] mmol/L [facility] L ab (Internal) : [address] ? ? S High Cl 110 mmol/L 98-107 Final [facility] mmol/L [facility] L ab (Internal) : [address] ? ? S ? Tco2 23.0 mmol/L 22.0-30.0 Final No rth mmol/L [facility] L ab (Internal) : [address] ? ? S ? Tp 7.7 g/dL 6.3-8.2 Final [facility] g/dL [facility] L ab (Internal) : [address] ? ? S ? Alb 4.2 g/dL 3.5-5.0 Final [facility] g/dL [facility] L ab (Internal) : [address] ? ? S ? Tbil 0.6 mg/dL 0.2-1.3 Final [facility] mg/dL [facility] L ab (Internal) : [address] ? ? S ? Alp 101 U/L 38-126 Final [facility] U/L [facility] L ab (Internal) : [address] ? ? S ? Alt 32 U/L 9-52 U/L Final [place] (Sgpt) [facility] L ab (Internal) : [address] ? ? S High Ast 47 U/L 14-36 U/L Final [place] (Sgot) [facility] Hospital L ab (Internal) : [address] 03/16/2017 Drug UR ? Thc negative neg (50 Final Nor th Screen, NG/mL NG/mL) [facility] U[facility] NG/mL Hospital L ab (Internal) : [address] ? ? UR ? Pcp negative neg (25 Final [facility] NG/mL) [facility] L ab (Internal) : [address] ? ? UR ? Fay negative neg (150 Final [facility] NG/mL) [facility] L ab (Internal) : [address] ? ? UR ? Met negative neg (500 Final [facility] NG/mL) [facility] L ab (Internal) : [address] ? ? UR ? Opi negative neg (100 Final [facility] NG/mL) [facility] L ab (Internal) : [address] ? ? UR ? Amp negative neg (500 Final [facility] NG/mL) [facility] L ab (Internal) : [address] ? ? UR ? Bzo negative neg (150 Final [facility] NG/mL) [facility] L ab (Internal) : [address] ? ? UR ? Tca negative neg (300 Final [place] NG/mL) [facility] L ab (Internal) : [address], Angella t ? ? UR ? Mtd negative neg (200 Final [place] NG/mL) [facility] L ab (Internal) : [address], Angella t ? ? UR ? Bar negative neg (200 Final [facility] NG/mL) [facility] L ab (Internal) : [address], Angella t ? ? UR ? Oxy negative neg (100 Final [facility] NG/mL) [facility] L ab (Internal) : [address], Angella t ? ? UR ? Ppx negative neg (300 Final [place] NG/mL) [facility] L ab (Internal) : [address], Angella t ? ? UR ? Bup negative neg (10 Final [place] NG/mL) [facility] Hospital L ab (Internal) : [address] 03/07/2017 Venipunctur BLD ? Venpn* ? ? Final [facility] e [facility] L ab (Internal) : [address] 03/07/2017 Iron, Serum SERUM ? Iron 48 ug/dL 37-170 Final [place] ug/dL [facility] Hospital L ab (Internal) : [address] 03/07/2017 Neutrophil BLD ? Anc-manu 4.97 10*3/uL ? Final [place] Count, al [facility] Hospital Lab (Anc), (Internal) : Blood [address] 03/07/2017 Differentia BLD ? Polys 51 % 40-75 % Final [place] l, Manual, Countr y Blood Hospital L ab (Internal) : [address] ? ? BLD ? Bands 0 % 0-5 % Final [facility] Hospital L ab (Internal) : [address] ? ? BLD ? Lymphs 34 % 20-50 % Final [facility] Hospital L ab (Internal) : [address] ? ? BLD ? Ciales 5 % 2-10 % Final [facility] Hospital L ab (Internal) : [address] ? ? BLD High Eos 10 % 0-6 % Final [facility] Hospital L ab (Internal) : [address] ? ? BLD ? Baso 0 % 0-1 % Final [facility] L ab (Internal) : [address] ? ? BLD ? Atyp 0 % ? Final [facility] Hospital L ab (Internal) : [address] ? ? BLD ? Plts, adequate adequate Final [facility] Hospital L ab (Internal) : [address] ? ? BLD ? RBC normal normal Final [place] [facility] L [facility] (Internal) : [address] 03/07/2017 CBC W/ Auto BLD ? Wbc 9.8 10*3/uL 5.0-10.0 F inal [place] Diff 10*3/uL [facility] Hospital L ab (Internal) : [address] ? ? BLD Low Rbc 3.92 10*6/uL 4.10-5.30 Final N orth 10*6/uL [facility] Hospital L ab (Internal) : [address] ? ? BLD Low Hgb 11.3 g/dL 12.0-16.0 Final Nort h g/dL [facility] Hospital L ab (Internal) : [address] ? ? BLD ? Hct 37.2 % 37.0-47.0 Final [facility] L ab (Internal) : [address] ? ? BLD ? Mcv 94.9 fL 80.0-96.0 Final [facility] Hospital L ab (Internal) : [address] ? ? BLD ? Mch 28.8 pg 26.0-32.0 Final [place] pg [facility] L ab (Internal) : [address] ? ? BLD Low Mchc 30.4 g/dL 31.0-35.0 Final Nort h g/dL [facility] L ab (Internal) : [address] ? ? BLD High Rdw 14.6 % 11.5-14.5 Final [place] % [facility] L ab (Internal) : [address] ? ? BLD ? Plt 414 10*3/uL 130-450 Final Nort h 10*3/uL [facility] L ab (Internal) : [address] Past Encounters 10/19/2020 Hypertensive Disorder; Generalized Anxie ty Disorder; Idiopathic Osteoarthritis Sharee Zacarias MD: [address] [place] [phone], Ph. 07/28/2020 Maryse Romero RN: [address] [place] [phone], Ph. 07/28/2020 Pre-surgery Evaluation; Contact Dermatit is Sharee Zacarias MD: [address] [place] [address] [phone], Ph. 07/08/2020 Acute Low Back Pain; Tinea Corporis; Uri nary Incontinence Sharee Zacarias MD: [address] [place] [phone], Ph. 06/16/2020 Urinary Incontinence; Generalized Anxiet y Disorder; Tinea Corporis; Plantar Fasciitis Sharee Zacarias MD: [address] [place] [phone], Ph. 06/10/2020 Pain in Left Knee Dawit Hood MD: [address], [address], [place] [address], Ph. 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 Social History Tobacco Smoking Status Former Smoker Notes: quit in 1968 Vaccine List Vaccine Type Tdap 05/22/2007 Plan of Care Reminders Provider Appointments None ? ? recorded. Lab None ? ? recorded. Referral None ? ? recorded. Procedures None ? ? recorded. Surgeries None ? ? recorded. Imaging None ? ? recorded. Vitals 10/19/2020 11:20AM Follow Up 20 Height Weight BMI Blood Pressure 162.56 cm 66 kg 25 kg/m2 150/92 mm[Hg] 07/28/2020 11:00AM Preop Clearance 40 Height Weight BMI Blood Pressure 162.56 cm 63.56 kg 24.1 kg/m2 130/76 mm[Hg] 07/08/2020 11:00AM Acute 20 Height Weight BMI Blood Pressure 162.56 cm 64.44 kg 24.4 kg/m2 120/80 mm[Hg] 06/16/2020 09:00AM Follow Up 20 Height Weight BMI Blood Pressure 162.56 cm 60.1 kg 22.7 kg/m2 138/80 mm[Hg] 06/10/2020 01:00PM Follow Up 30 Height Weight BMI 162.56 cm 63.37 kg 24 kg/m2 03/24/2020 08:20AM Follow Up 20 Height Weight BMI Blood Pressure 162.56 cm 62.82 kg 23.8 kg/m2 132/72 mm[Hg] 01/29/2020 11:00AM Acute 40 Height Weight BMI Blood Pressure 162.56 cm 61.29 kg 23.2 kg/m2 128/70 mm[Hg] 01/08/2020 01:40PM Follow Up 40 Height 162.56 cm 12/24/2019 08:45AM Acute 15 Height Weight BMI 162.56 cm 62.51 kg 23.7 kg/m2 11/18/2019 10:00AM Injection 20 Height Weight BMI Blood Pressure 162.56 cm 60.15 kg 22.8 kg/m2 134/82 mm[Hg] 11/18/2019 09:40AM Follow Up 20 Height Weight BMI Blood Pressure 162.56 cm 60.15 kg 22.8 kg/m2 134/82 mm[Hg] 11/04/2019 10:20AM Same Day 20 Height Weight BMI Blood Pressure 162.56 cm 59.93 kg 22.7 kg/m2 130/70 mm[Hg] 10/15/2019 08:00AM Acute 20 Height Weight BMI Blood Pressure 162.56 cm 58.97 kg 22.3 kg/m2 132/98 mm[Hg] 09/09/2019 02:20PM Follow Up 40 Height Weight BMI Blood Pressure 162.56 cm 62.78 kg 23.8 kg/m2 144/72 mm[Hg] 08/25/2019 10:20AM Same Day 20 Height Weight BMI Blood Pressure 162.56 cm 60.78 kg 23 kg/m2 150/84 mm[Hg] 08/18/2019 10:40AM Follow Up 20 Height Weight BMI Blood Pressure 162.56 cm 62.19 kg 23.5 kg/m2 140/78 mm[Hg] 07/14/2019 01:40PM Follow Up 20 Height Weight BMI Blood Pressure 162.56 cm 61.51 kg 23.3 kg/m2 148/78 mm[Hg] 06/13/2019 02:20PM Follow Up 20 Height Weight BMI Blood Pressure 162.56 cm 62.6 kg 23.7 kg/m2 142/80 mm[Hg] 05/09/2019 10:40AM Same Day 20 Height Weight BMI Blood Pressure 162.56 cm 63.96 kg 24.2 kg/m2 140/90 mm[Hg] 05/09/2019 11:00AM Injection 20 Height Weight BMI Blood Pressure 162.56 cm 63.96 kg 24.2 kg/m2 140/90 mm[Hg] 04/02/2019 09:00AM Acute 40 Height Weight BMI 162.56 cm 65.27 kg 24.7 kg/m2 03/17/2019 01:40PM Follow Up 20 Height Weight BMI 162.56 cm 66.22 kg 25.1 kg/m2 03/04/2019 02:00PM Acute 20 Height Weight BMI Blood Pressure 162.56 cm 66.59 kg 25.2 kg/m2 132/80 mm[Hg] 02/18/2019 09:00AM Follow Up 20 Height Weight BMI Blood Pressure 162.56 cm 65.59 kg 24.8 kg/m2 142/82 mm[Hg] 02/07/2019 09:40AM Follow Up 20 Height Weight BMI Blood Pressure 162.56 cm 66.22 kg 25.1 kg/m2 140/82 mm[Hg] 02/07/2019 09:20AM Follow Up 20 Height Weight BMI Blood Pressure 162.56 cm 66.32 kg 25.1 kg/m2 140/82 mm[Hg] 01/03/2019 11:00AM Follow Up 20 Height Weight BMI Blood Pressure 162.56 cm 65.32 kg 24.7 kg/m2 132/82 mm[Hg] 12/20/2018 09:00AM Acute 40 Height Weight BMI Blood Pressure 162.56 cm 130/80 mm[Hg] 12/11/2018 10:40AM Follow Up 40 Height Weight BMI Blood Pressure 162.56 cm 65.32 kg 24.7 kg/m2 128/78 mm[Hg] 11/19/2018 11:20AM Acute 20 Height Blood Pressure 162.56 cm 132/86 mm[Hg] 11/11/2018 10:00AM Procedure 20 Height 162.56 cm 11/11/2018 10:20AM Procedure 20 Height Weight BMI Blood Pressure 162.56 cm 65.68 kg 24.9 kg/m2 128/78 mm[Hg] 10/02/2018 09:00AM Acute 20 Height Weight BMI Blood Pressure 162.56 cm 63.96 kg 24.2 kg/m2 110/78 mm[Hg] 08/19/2018 08:20AM Acute 20 Height Weight BMI Blood Pressure 162.56 cm 64.41 kg 24.4 kg/m2 138/78 mm[Hg] 08/09/2018 10:00AM Follow Up 20 Height Blood Pressure 162.56 cm 144/82 mm[Hg] 08/09/2018 10:00AM Follow Up 20 Height Weight BMI Blood Pressure 162.56 cm 65.27 kg 24.7 kg/m2 144/82 mm[Hg] 07/18/2018 12:40PM Acute 20 Height Weight BMI Blood Pressure 162.56 cm 64.89 kg 24.6 kg/m2 140/80 mm[Hg] 05/08/2018 10:00AM Opioid Management 20 Height Weight BMI Blood Pressure 162.56 cm 65.32 kg 24.7 kg/m2 122/72 mm[Hg] 05/08/2018 10:00AM Procedure 20 Height 162.56 cm 05/01/2018 11:40AM Acute 20 Height Weight BMI Blood Pressure 162.56 cm 65.68 kg 24.9 kg/m2 130/80 mm[Hg] 04/02/2018 10:00AM Procedure 40 Height Blood Pressure 162.56 cm 144/72 mm[Hg] 01/10/2018 Height Weight Blood Pressure 162.56 cm 67.86 kg 114/78 mm[Hg] 12/25/2017 Weight Blood Pressure 67.45 kg 128/66 mm[Hg] 11/29/2017 Weight Blood Pressure 66.63 kg 132/90 mm[Hg] 10/26/2017 Weight Blood Pressure 65.5 kg 108/64 mm[Hg] 09/25/2017 Weight Blood Pressure 65.18 kg 122/62 mm[Hg] 09/13/2017 Weight Blood Pressure 64.86 kg 132/72 mm[Hg] 09/05/2017 Weight Blood Pressure 66.45 kg 138/78 mm[Hg] 08/06/2017 Weight Blood Pressure 65.73 kg 138/72 mm[Hg] 07/17/2017 Height Weight 162.56 cm 64.86 kg 06/25/2017 Weight Blood Pressure 64.86 kg 102/78 mm[Hg] 06/22/2017 Height Weight Blood Pressure 162.56 cm 64.41 kg 126/68 mm[Hg] 06/06/2017 Weight Blood Pressure 63.87 kg 124/72 mm[Hg] 05/25/2017 Height Weight Blood Pressure 163.19 cm 64.86 kg 128/70 mm[Hg] 03/16/2017 Weight Blood Pressure 63.78 kg 140/84 mm[Hg] 01/24/2017 Height Weight Blood Pressure 162.56 cm 63.14 kg 132/89 mm[Hg] 12/22/2016 Weight Blood Pressure 64.64 kg 150/80 mm[Hg] 11/13/2016 Height Weight Blood Pressure 162.56 cm 65.09 kg 139/85 mm[Hg] 11/03/2016 Height Weight Blood Pressure 162.56 cm 65.68 kg 108/76 mm[Hg] 10/20/2016 Weight 66.81 kg 09/18/2016 Weight Blood Pressure 66.81 kg 118/70 mm[Hg] 08/04/2016 Weight Blood Pressure 67.63 kg 140/92 mm[Hg] 07/07/2016 Weight Blood Pressure 67.13 kg 129/84 mm[Hg] 05/24/2016 Weight Blood Pressure 68.63 kg 138/88 mm[Hg] 05/19/2016 Height Weight Blood Pressure 160.02 cm 68.04 kg 172/110 mm[Hg] 05/08/2016 Weight Blood Pressure 68.08 kg 146/98 mm[Hg] 03/10/2016 Height Weight Blood Pressure 165.1 cm 70.58 kg 132/78 mm[Hg] 01/14/2016 Height Weight Blood Pressure 165.1 cm 70.58 kg 150/98 mm[Hg] 12/22/2015 Height Weight Blood Pressure 165.1 cm 71.12 kg 129/81 mm[Hg] 12/08/2015 Height Weight Blood Pressure 163.83 cm 72.35 kg 140/82 mm[Hg] 12/03/2015 Height Weight Blood Pressure 164.34 cm 73.66 kg 132/78 mm[Hg] 10/27/2015 Weight Blood Pressure 73.66 kg 136/89 mm[Hg] 10/13/2015 Weight Blood Pressure 73.44 kg 147/91 mm[Hg] 09/24/2015 Height Weight Blood Pressure 164.47 cm 72.57 kg (1) 145/95 mm[Hg] (2) 132/96 mm[Hg] 08/20/2015 Height Weight Blood Pressure 164.47 cm 73.35 kg 114/80 mm[Hg] 07/16/2015 Weight Blood Pressure 74.07 kg 116/81 mm[Hg] 06/11/2015 Weight Blood Pressure 74.98 kg 130/96 mm[Hg] 06/02/2015 Blood Pressure 152/88 mm[Hg] 05/06/2015 Blood Pressure 154/98 mm[Hg] 04/21/2015 Blood Pressure 142/98 mm[Hg] 02/24/2015 Blood Pressure 152/80 mm[Hg] 01/25/2015 Blood Pressure 162/84 mm[Hg] 12/30/2014 Blood Pressure 138/90 mm[Hg] 12/16/2014 Blood Pressure 156/98 mm[Hg] 07/22/2014 Weight Blood Pressure 78.65 kg 120/84 mm[Hg] 06/17/2014 Weight Blood Pressure 78.7 kg 114/62 mm[Hg] 04/01/2014 Blood Pressure (1) 146/82 mm[Hg] (2) 148/80 mm[Hg] 12/24/2013 Height Weight Blood Pressure 167.01 cm 80.15 kg 110/62 mm[Hg] 11/24/2013 Blood Pressure (1) 168/86 mm[Hg] (2) 152/92 mm[Hg] 11/10/2013 Blood Pressure 134/76 mm[Hg] 10/15/2013 Blood Pressure 130/78 mm[Hg] 10/10/2013 Blood Pressure 122/80 mm[Hg] 09/17/2013 Blood Pressure 122/72 mm[Hg] 08/29/2013 Height Weight Blood Pressure 167.01 cm 79.24 kg 130/84 mm[Hg] 06/18/2013 Weight Blood Pressure 76.7 kg 102/70 mm[Hg] 06/02/2013 Weight Blood Pressure 77.61 kg 118/70 mm[Hg] 04/04/2013 Height Weight Blood Pressure 165.1 cm 78.11 kg 134/80 mm[Hg] 04/01/2013 Height Weight Blood Pressure 165.1 cm 77.56 kg 140/82 mm[Hg] 02/21/2013 Height Weight Blood Pressure 165.1 cm 76.38 kg 116/70 mm[Hg] 01/10/2013 Weight Blood Pressure 75.98 kg 142/76 mm[Hg] 12/06/2012 Height Weight Blood Pressure 165.1 cm 76.16 kg 134/70 mm[Hg] 11/11/2012 Weight Blood Pressure 76.57 kg (1) 144/78 mm[Hg] (2) 140/76 mm[Hg] 10/11/2012 Weight Blood Pressure 78.43 kg 120/82 mm[Hg] 09/02/2012 Height Weight Blood Pressure 165.1 cm 80.74 kg 124/70 mm[Hg] 08/02/2012 Height Weight Blood Pressure 165.1 cm 81.01 kg 100/70 mm[Hg] 07/17/2012 Height Weight Blood Pressure (1) 165.1 cm (1) 80.47 kg (1) 122/64 mm[Hg] (2) 167.64 cm (2) 80.74 kg (2) 110/68 mm[Hg] 01/11/2012 Height Blood Pressure 167.64 cm 110/62 mm[Hg] 08/25/2010 Weight Blood Pressure 78.93 kg 112/72 mm[Hg] 02/11/2009 Blood Pressure 128/78 mm[Hg] 01/24/2008 Height Weight Blood Pressure 167.64 cm 78.93 kg (1) 118/82 mm[Hg] (2) 122/72 mm[Hg] 05/22/2007 Blood Pressure 118/78 mm[Hg]
[2021-09-08 23:30] VITALS: BP 137/90; PULSE 102; RESP 16; TEMP 36.5; O2SAT 94
[2021-09-09] VITALS (8 sets, daily range): BP systolic 131–157; BP diastolic 74–99; PULSE 81–117; RESP 16–19; TEMP 35.5–37; O2SAT 94–98
[2021-09-09] MEDS: HYDROmorphone 4 MG TAB PO (00:58)
[2021-09-09 06:31] LABS: HCT 34.8 % (36.0-46.0); HGB 10.8 g/dL (11.2-15.7); MCH 30.9 pg (27.0-33.0); MCV 99.4 fL (80-95); MPV 9.5 fL (8.0-11.0); Platelet Count 263 10^3/uL (130-400); RDW 14.5 % (11.7-14.6); RDW-SD 52.2 fL; WBC 8.46 10^3/uL (4.4-10.8)
[2021-09-09 07:02] LABS: PTT Activated 58.5 sec (21.0-27.5)
[2021-09-09 07:24] LABS: Anion Gap 9.9 mmol/L (3-11); BUN 23 mg/dL (7-18); CO2 27.1 mmol/L (21.0-32.0); CREATININE 0.7 mg/dL (0.55-1.02); Calcium 8.1 mg/dL (8.5-10.1); Chloride 108 mmol/L (98-107); Glucose 103 mg/dL (74-106); Potassium 3.1 mmol/L (3.5-5.1); Sodium 145 mmol/L (136-145); Troponin I < 0.05 ng/mL (<0.06)
--- NOTE | 2021-09-09 07:42 | HPE_ITS ---
Date of service: 09/09/21 Time of Service: 07:42 Assessment and Plan Assessment and plan (1) Pulmonary emboli: Status: Chronic Assessment and plan: She was transferred from [facility] because of acute pulmonary embolism. This appears to be unprovoked. She is not very clear historian and we are going to get records from the hospital to further elucidate what is been going on recently. (2) Elevated troponin: Status: Acute Assessment and plan: Her initial troponin yesterday was normal but the second 1 was slightly abnormal. It is being repeated today. She did have a cardiac evaluation at [facility] few days ago and we will get records on that. History of Present Illness History of Present Illness Chief Complaint: chest pain, weakness Narrative: This 71-year-old female was transferred here from [facility] in [facility] because of pulmonary embolism. She presented to their hospital about 6 days ago with back pain and constipation. She was admitted for few days but then left AGAINST MEDICAL ADVICE 3 days ago. She had a cardiology consult and abnormal troponins while there based upon a report from the emergency doctor yesterday prior to transfer here. They had no monitor beds for her at [facility] and was requested that she be transferred here for further care. She had elevated troponin Staley as well as an elevated D-dimer. Chest CT showed left-sided pulmonary emboli. She was started on heparin infusion at [facility] and that was continued here. She denies any prior his tory that she is aware of any clotting disorder. She said her mother had a stroke. She lives by herself except with her dog. She has 1 son who of motor vehicle accident her of an aneurysm. Her son is coming here today from where he lives in [facility]. She tells me she is not aware of having any previous heart problems but does have hypertension. 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 She has been followed by [facility] [place] for this. She is not aware of any recurrence of that tumor. She also has hyperlipidemia, anemia, depression, hearing loss, hypertension, cardiomegaly, gastroesophageal reflux, cholelithiasis, osteoarthritis, lumbar spondylosis, osteoporosis, urge incontinence of her urine, compression fracture of lumbar spine, fractured pelvis, osteoarthritis of right knee and left shoulder, left sciatica. 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 She said she takes Adderall to help her focus and she takes 4 mg hydromorphone at night to help her relax and sleep. She does not use tobacco or alcohol. She said she has had both initial coronavirus vaccines but has not had a flu shot this year. Review of Systems Constitutional Constitutional: Denies chills, Reports fatigue and Denies fever(s) ENT Ears, Nose, Mouth, and Throat: Denies dysphagia Cardiovascular Cardiovascular: Reports chest pain, Denies irregular heart rhythm, Denies radiating jaw, neck or arm pain and Denies dyspnea Respiratory Respiratory: Denies cough, Denies hemoptysis and Denies dyspnea Gastrointestinal Gastrointestinal: Reports constipation, Reports cramping, Denies dysphagia, Denies diarrhea and Denies vomiting Genitourinary Genitourinary: Denies urinary frequency and Denies difficulty voiding Musculoskeletal Musculoskeletal: Reports arthralgias Endocrine Endocrine: Reports fatigue [facility] Active Problem List (Updated 09/09/21 @ 07:59 by Matt Joy MD) Elevated troponin (Acute) Pulmonary emboli (Chronic) Social History Smoking/Tobacco Use Status: Never Smoking risk assessment performed?: Yes Alcohol Intake: never Drug use: Never Substance use type: does not use Do you feel safe at home: No (bad neighbors) Do you feel safe in your relationship?: No Additional Social history: denies abuse Meds Allergies and Home Medications Allergies Allergy/AdvReac Type Severity Reaction Status Date / Time lisinopril Allergy Hives Unverified 09/09/21 01:13 (Moderate) rosuvastatin [From Crestor] Allergy Myalgias Unverified 09/09/21 01:05 (muscle pain) Home Medications Medication Instructions Recorded Confirmed Type acetaminophen 500 mg PO QID PRN 09/09/21 09/09/21 History bisacodyl 5 mg PO ONCE 09/09/21 09/09/21 History cinnamon bark [Cinnamon] 500 mg PO DAILY 09/09/21 09/09/21 History clonidine HCl 0.1 mg PO BID 09/09/21 09/09/21 History cod liver oil 1 cap PO ONCE 09/09/21 09/09/21 History cyanocobalamin (vitamin B-12) 1,000 mcg PO DAILY 09/09/21 09/09/21 History [Vitamin B-12] dextroamphetamine-amphetamine 15 mg PO DAILY 09/09/21 09/09/21 History [Adderall XR] docusate sodium [Colace] 100 mg PO BID 09/09/21 09/09/21 History hydromorphone [Dilaudid] 4 mg PO HS 09/09/21 09/09/21 History ibuprofen 800 mg PO DAILY 09/09/21 09/09/21 History metoprolol succinate 100 mg PO DAILY 09/09/21 09/09/21 History omega-3 fatty acids [Fish Oil] 500 mg PO BID 09/09/21 09/09/21 History oxybutynin chloride 5 mg PO DAILY 09/09/21 09/09/21 History polyethylene glycol 3350 17 g PO DAILY 09/09/21 09/09/21 History prednisone 5 mg PO DAILY 09/09/21 09/09/21 History tramadol 50 mg PO Q8H PRN 09/09/21 09/09/21 History Exam HENMT Ears: hearing grossly impaired Neck Neck: normal visual inspection and no lymphadenopathy Resp Effort & Inspection: normal respiratory effort and able to speak in complete sentences Auscultation: no rales, no rhonchi and no wheezes Cardio Jugular venous pressure: no JVD Rate: regular rate Rhythm: regular rhythm Heart Sounds: S1 normal, S2 normal, no click, no gallops and no murmurs GI Inspection: normal to inspection Palpation: soft, no hepatosplenomegaly and nontender Back/Spine/Pelvis Back: no CVA tenderness Neuro General: patient alert, patient awake and patient oriented x3 Extrem General: normal to inspection, no clubbing and no edema Results Labs Result diagrams: 09/09/21 06:05 09/09/21 06:05 Labs: Laboratory Results - last 24 hr 09/09/21 09/09/21 09/09/21 02:15 06:05 06:05 WBC 8.46 RBC 3.50 L Hgb 10.8 L Hct 34.8 L MCV 99.4 H MCH 30.9 MCHC 31.0 L RDW 14.5 Plt Count 263 MPV 9.5 APTT 63.0 H Sodium 145 Potassium 3.1 L Chloride 108 H Carbon Dioxide 27.1 Anion Gap 9.9 BUN 23 H Creatinine 0.7 Estimated GFR/1.73 m2 >= 60.00 Glucose 103 Calcium 8.1 L Troponin I < 0.05 09/09/21 06:05 WBC RBC Hgb Hct MCV MCH MCHC RDW Plt Count MPV APTT 58.5 H Sodium Potassium Chloride Carbon Dioxide Anion Gap BUN Creatinine Estimated GFR/1.73 m2 Glucose Calcium Troponin I Last Vital Signs Temp 35.5 C L 09/09/21 07:39 Pulse 112 H 09/09/21 07:39 Resp 19 09/09/21 07:39 BP 151/99 H 09/09/21 07:39 Pulse Ox 97 09/09/21 07:39
--- NOTE | 2021-09-09 08:55 | INITIAL_ITS ---
- If Service Date Differs Date of service: 09/09/21 Time of Service: 08:55 Care Management Initial Assess REASON FOR HOSPITALIZATION:: Pulmonary Emboli PAST MEDICAL HISTORY/PAST SURGICAL HISTORY:: Active Problem List (Updated 09/09/21 @ 07:59 by Matt Joy MD). Elevated troponin (Acute). Pulmonary emboli (Chronic). hyperlipidemia, anemia, depression, hearing loss, hypertension, cardiomegaly, gastroesophageal reflux, cholelithiasis, osteoarthritis, lumbar spondylosis, osteoporosis, urge incontinence of her urine, compression fracture of lumbar spine, fractured pelvis, osteoarthritis of right knee and left shoulder, left sciatica. 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 PREVIOUS FUNCTIONAL STATUS/SOCIAL/FAMILY SUPPORTS:: Janet lives alone in [place], [place]. She has a son who lives on [facility] and had another son who in a MVA. She is . Janet is independent at baseline and does not receive any community services. CURRENT FUNCTIONAL STATUS:: Janet was sitting up in a chair when CM met with her. She was pleasant and engaged readily with CM. Janet shared that she is being discharged and is uncertain about her discharge plan. Her nurse has explained the plan and will review it with her son when he arrives to take her home. During the preparation of her discharge CM learned that she has no Part D Medicare coverage and that her medication costs are prohibitive given her limited income. When CM asked about this, Janet stated that she could not afford any more insurance. CM provided Janet with written information with plan details and phone contacts for 5 plans ranging from $7 per month to less than $30. Janet indicated that she could afford those payments. It will likely save her a lot of money for her medications. CM also reviewed this with Janet Nazario's son. Both were told that there is some urgency because open enrollment ends on 09/13/21.She will need to sign up within the next few days to receive coverage for 2021. Janet is being discharged on Lovenox and warfarin. She will need Lovenox injections bid until INR is therapeutic. Her son has agreed to administer the shots this weekend but he must return to [facility]. on Sunday. CM contacted Trini Jenkins, Janet's good friend (with Janet's permission) to see if she would be willing to take over the injections in the evening and she agreed. Home health will be there in the morning and can adminiater the morning dose. Janet was counseled by CM to return to the ED if, for whatever reason, she is not able to receive her Lovenox injections as scheduled at home, stressing the importanmce of treating the PE. Janet verbalized understanding and agreed. ADVANCE DIRECTIVES:: none on file Has patient been provided with info about the portal/API?: Yes Did the patient sign up for the portal?: No CODE STATUS:: Full Code INSURANCE COVERAGE / FINANCIAL ISSUES:: Medicare[facility] CURRENT HOME/COMMUNITY SERVICES/EQUIPMENT:: Janet receives no services but does use a cane PRIMARY CARE PHYSICIAN:: Misael Jolley POTENTIAL DISCHARGE NEEDS:: Follow up with PCP and plan of care PATIENT/FAMILY EDUCATION NEEDS:: review of discharge instructions, limitations, activity, medications, follow up plan and discuss Ask Me Three TRANSPORTATION:: via private vehicle with son PLAN:: Janet will be discharged home with new home health services for RN, OT and [employer] REPRESENT[employer]IVE. She will follow up with her PCP and plan of care and transport with her son. Janet will be on bid Enoxaparin injections for the next few days until her INR is therapeutic. Her son has agreed to give her the injections while he is here, but must return to [facility]. where he lives on Sunday. CM contacted Janet's friend Trini who agreed to take over the evening injections. [facility] can administer the morning dose and do the blood draws. CM will continue to support Janet and assess for additional discharge planning concerns.
[2021-09-09] MEDS: Fluticasone NASAL SPRAY 16 GM BTL NS (09:15)
[2021-09-09] MEDS: traMADol 50 MG TAB 150 MG PO (09:16)
[2021-09-09] MEDS: Bisacodyl 5 MG TABEC 10 MG PO (09:16)
[2021-09-09] MEDS: Docusate Sodium 100 MG CAP PO (09:16)
[2021-09-09] MEDS: cloNIDine 0.1 MG TAB PO (09:16)
[2021-09-09] MEDS: Metoprolol CR 100 MG TABCR PO (09:16)
[2021-09-09] MEDS: Normal Saline Flush 10 ML SYR IVP (09:18)
[2021-09-09] MEDS: Potassium Chloride 20 MEQ TABCR 40 MEQ PO ×2 (10:49→12:31)
--- NOTE | 2021-09-09 11:28 | CHAPLAIN ---
Janet explained that she was transferred here from [facility], and did not have a good experience at [facility]. Today she said she was told by someone that she was going home, and has not been told that again since, so she's unsure. When I encouraged her to ask the hospitalist (MD or WORM GROWER) questions until she felt like she got all her questions answered. Janet said she felt like she'd been yelled at by staff and that was intimidating to her. [facility] is here and will be allowed to visit at 1 p.m. when visiting hours begin. She hasn't seen him in 2 years, she said. Her grandson is with her son.
--- NOTE | 2021-09-09 12:39 | DSE_ITS ---
Date of service: 09/09/21 Time of Service: 12:39 DS: Diagnosis Discharge Diagnosis (1) Pulmonary emboli: Start date: 09/09/21 Start time: 12:40 Status: Acute Asessment and Plan: Found to throbus at the brnching point of the distal left primary pulmonary artery. Extends to left lower lobe secondary to branch vessel. Thrombus also seen in the tertiary branch extending to the lingular segment of the left upper lobe. She has been complaining of pain x 3 weeks. Seen at [facility] several times in the ED tx from there last night on a heparin gtt. Transitioned to enoxparain. She states pain to her back. Her PCP has placed her on large dose of pain medications tramadol 150 mg and dilauded 4 mg at HS. Recommend other alternative for pain, celebrex, lyrica, gabapentin, or instead of tramadol perhaps long acting oxycodone. Patient continues to c/o pain. Will give voltaren gel. CT did also reveal old compression fracture of L1, with multiple calcifications, and tendinitis. synovial ostochondromas. Echo was done on 09/05, though PE was found this admission at [facility], patient refused repeat echo today. Echo at [facility] did not show any concerning right heart strain. She is not c/o CP, just back pain. She would benefit from PT/OT/Nursing/AIRCRAFT PNEUDRAULICS REPAIRER/E D TECH She will need to go on enoxparin with 5 mg coumadin daily until theraputic with INR of 2-3. She will need PCP f/u this week. (2) Elevated troponin: Start date: 09/09/21 Start time: 12:49 Status: Acute Asessment and Plan: Slight bump in elevation at [facility] however here trop is negative. She refusing repeat echo, as above. Denies CP. Not requiring oxygen She will be discharged home as above discussed with Dr. Chapa. Discharge Plan Disposition Patient Disposition: HOME W/HOME HEALTH SERVICE Condition: Stable Discharge Details Reason For Visit: PE Admit Date/Time: 09/08/21 23:32 Admit Provider: Matt Joy Attending Provider: Matt Joy Primary Care Provider: Misael Jolley Hospital Course Hospital Course: Patient transferred from [facility] over night. She had been admitted to their hospital but left AMA three days ago and presented back there, they had no monitored beds for her so requested that she be transferred her for monitoring. She is requiring no oxygen. Her troponins are negative. She did have a Chest CT that revealed Left pulmonary embolism. She was inititated on heparin gtt at [facility]. That was dcd here and she was placed on enoxaparin BID. She c/o back pain that she states started 3 weeks ago she currently takes 150 of tramadol, and 4 mg dilaudid and still c/o back pain. CT did reveal old compression fx of L1. Voltaren gel ordered to help as well. She would benefit from longer acting medication like oxycontin vs high dose narcotics in elderly which puts her at high fall risk. She is scared about going home as she does not want to be alone. Services will be set up as she will benefit from PT/OT/RN/AIRCRAFT PNEUDRAULICS REPAIRER/E D TECH. She will need to go on enoxaparin with a bridge to coumadin with therapeutic goal of 2-3. Will order 5 mg coumadin and defer to PCP for further management. She denies CP, SOB, N/V/D. Home Meds and New Rx's Prescriptions: New diclofenac sodium 1 % Gel 0 g topical QID Qty: 100 RF: 0 warfarin 5 mg tablet 5 mg PO DAILY Qty: 30 RF: 0 Continued acetaminophen 500 mg Tablet 500 mg PO QID PRNRF: 0 dextroamphetamine-amphetamine [Adderall XR] 15 mg Capsule,Extended Release 24hr 15 mg PO DAILY RF: 0 bisacodyl 5 mg Tablet,Delayed Release (Dr/Ec) 5 mg PO ONCE RF: 0 clonidine HCl 0.1 mg Tablet 0.1 mg PO BID RF: 0 cod liver oil Capsule 1 cap PO ONCE RF: 0 cinnamon bark [Cinnamon] 500 mg Capsule 500 mg PO DAILY RF: 0 hydromorphone [Dilaudid] 4 mg Tablet 4 mg PO HS RF: 0 docusate sodium [Colace] 100 mg Capsule 100 mg PO BID RF: 0 omega-3 fatty acids Capsule 500 mg PO BID RF: 0 metoprolol succinate 100 mg Tablet Extended Release 24 Hr 100 mg PO DAILY RF: 0 oxybutynin chloride 5 mg Tablet Extended Release 24hr 5 mg PO DAILY RF: 0 polyethylene glycol 3350 17 gram Powder In Packet 17 g PO DAILY RF: 0 prednisone 5 mg Tablet 5 mg PO DAILY RF: 0 tramadol 50 mg Tablet 50 mg PO Q8H PRNRF: 0 cyanocobalamin (vitamin B-12) [Vitamin B-12] 1,000 mcg Tablet 1,000 mcg PO DAILY RF: 0 Discontinued ibuprofen 800 mg Tablet 800 mg PO DAILY RF: 0 Discharge Instructions Instructions: Warfarin (By mouth), Pulmonary Embolism (DC), Vertebral Compression Fracture (DC), Vitamin K in Foods (DC) Additional Instructions: Nursing will help with enoxaparin shots in the morning, someone will have to give you one in the evening, take the coumadin as well. Your INR will be checked daily. Once you reach 2-3 for your INR you can stop the shots. Take coumadin (warfarin) daily, Avoid foods with vitamin K Use voltaren gel for your back PT/OT/Nursing/AIRCRAFT PNEUDRAULICS REPAIRER/E D TECH will be set up to come to your home. Pain will be likely for a couple of days to weeks until the clot starts to dissolve. Follow up with Misael Jolley on 09/14 Referrals: Misael Jolley [Primary Care Provider] - 09/14/21 4:20 pm (With Dr. Plunkett ) Activity:: Activity as Tolerated Equipment/Supplies:: Enoxaparin syringes Diet:: Low Sodium Discharge Orders Discharge Orders: Discharge Order (Routine); Ordered 09/09/21 Ordered By: Alda Masterson DS: Summary Time Spent with Patient providing and/or coordinating discharge services: Greater than 30 minutes Status at Discharge Functional status at discharge: independent ambulation Overall status at discharge: patient is progressing back to baseline Mental Status: mental status grossly normal Speech and Movement: speech and movement normal Mood: congruent mood Affect: normal affect Exam [facility] Ears: hearing grossly impaired Neck Neck: normal visual inspection and no lymphadenopathy Resp Effort & Inspection: normal respiratory effort and able to speak in complete sentences Auscultation: no rales, no rhonchi and no wheezes Cardio Jugular venous pressure: no JVD Rate: regular rate Rhythm: regular rhythm Heart Sounds: S1 normal, S2 normal, no click, no gallops and no murmurs GI Inspection: normal to inspection Palpation: soft, no hepatosplenomegaly and nontender Back/Spine/Pelvis Back: no CVA tenderness Neuro General: patient alert, patient awake and patient oriented x3 Extrem General: normal to inspection, no clubbing and no edema Psych Mental Status: mental status grossly normal Speech and Movement: speech and movement normal Mood: congruent mood Affect: normal affect DS: Data Vitals/I&O Vitals and I&O: Vital Signs Temperature 36.8 C 09/09/21 11:23 Temperature Source Tympanic 09/09/21 11:23 Pulse 92 H 09/09/21 11:23 Pulse Rhythm Regular 09/09/21 10:03 Respiratory Rate 19 09/09/21 11:23 Respiratory Effort Non-Labored 09/09/21 10:03 Respiratory Depth Normal 09/09/21 10:03 Respiratory Pattern Normal 09/09/21 10:03 Blood Pressure 131/89 09/09/21 11:23 Pulse Oximetry 98 09/09/21 11:23 Oxygen Delivery Method Room Air 09/09/21 11:23 Oxygen Flow Rate 0 09/09/21 11:23 Pain Level 0 09/09/21 11:23 Intake & Output 09/08/21 09/09/21 09/09/21 23:59 11:59 23:59 Intake Total 56.55 / 56.55 Balance 56.55 / 56.55 Weight 50.5 kg 50.5 kg Intake: IV 56.55 / 56.55 Data Completed and Pending Labs on day of discharge: Labs from last 24 hours 09/09/21 09/09/21 09/09/21 09:00 08:15 06:05 WBC RBC Hgb Hct MCV MCH MCHC RDW Plt Count MPV APTT Cancelled Cancelled 58.5 H Sodium Potassium Chloride Carbon Dioxide Anion Gap BUN Creatinine Estimated GFR/1.73 m2 Glucose Calcium Troponin I 09/09/21 09/09/21 09/09/21 06:05 06:05 02:15 WBC 8.46 RBC 3.50 L Hgb 10.8 L Hct 34.8 L MCV 99.4 H MCH 30.9 MCHC 31.0 L RDW 14.5 Plt Count 263 MPV 9.5 APTT 63.0 H Sodium 145 Potassium 3.1 L Chloride 108 H Carbon Dioxide 27.1 Anion Gap 9.9 BUN 23 H Creatinine 0.7 Estimated GFR/1.73 m2 >= 60.00 Glucose 103 Calcium 8.1 L Troponin I < 0.05 PFSH Active Problem List Elevated troponin (Acute) Pulmonary emboli (Acute) Social History Smoking/Tobacco Use Status: Never Smoking risk assessment performed?: Yes Alcohol Intake: never Drug use: Never Substance use type: does not use Do you feel safe at home: No (bad neighbors) Do you feel safe in your relationship?: No Additional Social history: denies abuse
[2021-09-09] MEDS: Diclofenac 1% Gel 100 GM TUBE TP (12:42)
--- NOTE | 2021-09-09 13:38 | PDOC.HHF2F ---
Home Health Certification Home Health Certification: 1. Encounter Date and Reason I certify that Janet Corona was seen by Alda Masterson on 09/09/21 and that I had a [id number] encounter with this patient that meets the physician face to face encounter requirements. 2. Clinical Findings Supporting Skilled Need and Homebound Status I certify that home health services are medically necessary, include either intermittent longterm and/or physical/speech therapy, and that this patient is homebound in that absences from the home require considerable and taxing effort and are infrequent or of short duration, or are attributable to the need to receive medical care. [X] (a) Attached documentation from encounter provides clinical findings supporting skilled need and homebound status (including what assistance patient requires to leave the home). The encounter with the patient was in whole, or in part, for the following medical condition, which is the primary reason for home health care: PE Custodial: Patient would benefit from nursing for INR checks, enoxaparin shots, medication administration, etc. Physical Therapy: Patient would benefit from PT and OT from compression fracture with lower back pain and inability to preform adls, she would benefit from strength, balance and gait. Patient would benefit from having a COATER SMOKING PIPE and ADMINISTRATIVE SUPPORT MANAGER to help with resourses and et. Homebound: Unable to leave home without assistance. 3. Certification and Authentication I certify that I composed the above information based on my clinical judgement relating to this patient's medical condition and, if applicable, clinical findings communicated to me by the NPP or inpatient physician who performed the Home Health Referral. All further orders will be obtained through ____Misael Chery___(Community Based Physician - PCP)
[2021-09-09] MEDS: Warfarin 5 MG TAB PO (14:31)
[2021-09-09] MEDS: Enoxaparin 60 MG/0.6 ML SYR 50 MG SC (14:32)
--- NOTE | 2021-09-09 17:39 | CMDISCH_ITS ---
- If Service Date Differs Date of service: 09/09/21 Time of Service: 17:39 LACE Index Scoring Tool - Questions: Length of Stay (in days): 1 Acuity (Admit via E.D.?): No E.D. Visits: 0 - Answers: Total Score: 1 Risk of Readmission: Low Risk Care Management Discharge Reason for Hospitalization: Pulmonary Emboli Discharge Plan: Janet will be discharged home with new home health services for RN, OT and COMMERCIAL ACCOUNT OFFICER. She will follow up with her PCP and plan of care and transport with her son. Janet will be on bid Enoxaparin injections for the next few days until her INR is therapeutic. Her son has agreed to give her the injections while he is here, but must return to [facility] where he lives on Sunday. CM contacted Janet's friend Trini who agreed to take over the evening injections. [facility] can administer the morning dose and do the blood draws. CM will continue to support Janet and assess for additional discharge planning concerns. Patient/Family Education Needs: review of discharge instructions, limitations, activity, medications, particularly enoxaparin admininstration, follow up plan and discuss Ask Me Three
== END 2021-09-09 15:27 | disposition home health service (06) ==
PROVIDERS: Admitting Provider Family Medicine; PCP Physician Assistant; Visit Provider Family Medicine
DX: I26.99 Other pulmonary embolism without acute cor pulmonale (principal); R74.8 Abnormal levels of other serum enzymes; R07.89 Other chest pain; R53.1 Weakness; I10 Essential (primary) hypertension; E78.5 Hyperlipidemia, unspecified; D64.9 Anemia, unspecified; F32.A Depression, unspecified; K21.9 Gastro-esophageal reflux disease without esophagitis; M81.0 Age-related osteoporosis without current pathological fracture; N39.41 Urge incontinence
CPT/HCPCS: 36415; 80048; 85027; 84484; 85730; 99217; 99219; G0378; J1650

== ENCOUNTER 2021-09-14 18:54 | Outpatient (REF) | payer MEDICARE, OTHER, SELFPAY ==
[2021-09-14 18:31] LABS: HCT 32.3 % (36.0-46.0)
[2021-09-14 18:40] LABS: Anion Gap 7.9 mmol/L (3-11); BUN 18 mg/dL (7-18); CO2 26.1 mmol/L (21.0-32.0); CREATININE 0.7 mg/dL (0.55-1.02); Calcium 8.5 mg/dL (8.5-10.1); Chloride 111 mmol/L (98-107); Glucose 109 mg/dL (74-106); Potassium 3.4 mmol/L (3.5-5.1); Sodium 145 mmol/L (136-145)
[2021-09-16 12:56] LABS: CA 125 151 U/mL (<30)
== END 2021-09-14 18:55 | disposition home or self-care (01) ==
LOC: NCHCN 18:54
PROVIDERS: PCP Physician Assistant; Visit Provider Physician Assistant
DX: D47.2 Monoclonal gammopathy (principal); I26.99 Other pulmonary embolism without acute cor pulmonale; Z85.43 Personal history of malignant neoplasm of ovary
CPT/HCPCS: 80048; 86304; 85014

== ENCOUNTER 2021-11-10 15:42 | Outpatient (REF) | payer MEDICARE, OTHER, SELFPAY ==
[2021-11-10 09:25] LABS: Abs Immature Grans 0.01 10^3/uL (0.0-0.06); Absolute Basophil Count 0.02 10^3/uL (0.0-0.2); Absolute Eosinophil Count 0.33 10^3/uL (0.0-0.7); Absolute Lymphocyte Count 2.06 10^3/uL (1.2-3.4); Absolute Monocyte Count 0.74 10^3/uL (0.1-0.8); Absolute Neutrophil Count 3.64 10^3/uL (1.2-6.7); Basophils % 0.3; Eosinophils % 4.9; HCT 37.5 % (36.0-46.0); HGB 11.4 g/dL (11.2-15.7); Immature Grans % 0.1; Lymphocytes % 30.3; MCH 30.4 pg (27.0-33.0); MCHC 30.4 % (32.0-36.0); MPV 9.5 fL (8.0-11.0); Monocytes % 10.9; Neutrophils % 53.5; Nucleated RBC 0 %; Platelet Count 284 10^3/uL (130-400); RBC 3.75 10^6/uL (3.93-5.22); RDW 15.4 % (11.7-14.6); RDW-SD 57.1 fL
[2021-11-10 09:41] LABS: ALT 24 U/L (14-59); AST 26 U/L (15-37); Albumin 3.2 g/dL (3.4-5.0); Alkaline Phosphatase 108 U/L (46-116); Anion Gap 11.4 mmol/L (3-11); BUN 15 mg/dL (7-18); Bilirubin, Total 0.3 mg/dL (0.2-1.0); CO2 23.6 mmol/L (21.0-32.0); CREATININE 0.8 mg/dL (0.55-1.02); Calcium 9.1 mg/dL (8.5-10.1); Chloride 106 mmol/L (98-107); Glucose 98 mg/dL (74-106); Sodium 141 mmol/L (136-145); Total Protein 7.5 g/dL (6.4-8.2)
[2021-11-11 10:50] LABS: CA 125 88 U/mL (<30)
== END 2021-11-10 15:43 | disposition home or self-care (01) ==
LOC: LBN 15:42
PROVIDERS: PCP Physician Assistant; Visit Provider Internal Medicine Hematology & Oncology
DX: C80.1 Malignant (primary) neoplasm, unspecified (principal); R97.1 Elevated cancer antigen 125 [CA 125]
CPT/HCPCS: 80053; 86304; 85025

== ENCOUNTER 2021-12-01 18:43 | Outpatient (REF) | payer MEDICARE, OTHER, SELFPAY ==
[2021-12-01 10:24] LABS: Abs Immature Grans 0.02 10^3/uL (0.0-0.06); Absolute Basophil Count 0.01 10^3/uL (0.0-0.2); Absolute Lymphocyte Count 1.27 10^3/uL (1.2-3.4); Absolute Monocyte Count 0.48 10^3/uL (0.1-0.8); Absolute Neutrophil Count 4.77 10^3/uL (1.2-6.7); Basophils % 0.2; HCT 29.8 % (36.0-46.0); HGB 9.3 g/dL (11.2-15.7); Immature Grans % 0.3; Lymphocytes % 19.4; MCHC 31.2 % (32.0-36.0); MCV 99.3 fL (80-95); MPV 9.5 fL (8.0-11.0); Monocytes % 7.3; Neutrophils % 72.8; Nucleated RBC 0 %; Platelet Count 306 10^3/uL (130-400); RDW 16.4 % (11.7-14.6); RDW-SD 58.4 fL; WBC 6.55 10^3/uL (4.4-10.8)
[2021-12-01 10:39] LABS: ALT 25 U/L (14-59); AST 21 U/L (15-37); Albumin 3.2 g/dL (3.4-5.0); Alkaline Phosphatase 98 U/L (46-116); BUN 22 mg/dL (7-18); Bilirubin, Total 0.2 mg/dL (0.2-1.0); CREATININE 0.8 mg/dL (0.55-1.02); Calcium 9.1 mg/dL (8.5-10.1); Chloride 105 mmol/L (98-107); Glucose 94 mg/dL (74-106); Potassium 3.9 mmol/L (3.5-5.1); Sodium 140 mmol/L (136-145); Total Protein 7.3 g/dL (6.4-8.2)
[2021-12-02 11:30] LABS: CA 125 96 U/mL (<30)
== END 2021-12-01 18:44 | disposition home or self-care (01) ==
LOC: LBN 18:43
PROVIDERS: PCP Physician Assistant; Visit Provider Internal Medicine Hematology & Oncology
DX: C80.1 Malignant (primary) neoplasm, unspecified (principal); R97.1 Elevated cancer antigen 125 [CA 125]
CPT/HCPCS: 80053; 86304; 85025

== ENCOUNTER 2022-03-02 12:00 | Outpatient (REF) | payer MEDICARE, OTHER, SELFPAY ==
[2022-03-02 15:28] LABS: INR 1.8 (0.9-1.1); Prothrombin Time 17.9 sec (9.3-11.0)
== END 2022-03-02 12:01 | disposition home or self-care (01) ==
LOC: NCHCN 12:00
PROVIDERS: PCP Physician Assistant; Visit Provider Physician Assistant
DX: I26.99 Other pulmonary embolism without acute cor pulmonale (principal); Z79.01 Long term (current) use of anticoagulants
CPT/HCPCS: 85610

== ENCOUNTER 2022-03-06 12:56 | Emergency (ER) | payer MEDICARE, OTHER, SELFPAY ==
[2022-03-06] VITALS (58 sets, daily range): BP systolic 121–173; BP diastolic 76–137; PULSE 78–106; RESP 10–28; TEMP 36.7–36.9; O2SAT 74–98
--- NOTE | 2022-03-06 13:23 | ED.GENADUL_ITS ---
Discharge Plan Discharge Details Chief Complaint: Orthopedic Primary Care Provider: Misael Jolley ED Provider: Megha Márquez Home Meds and New Rx's Prescriptions: No Action acetaminophen 500 mg Tablet 500 mg PO QID PRN dextroamphetamine-amphetamine [Adderall XR] 15 mg Capsule,Extended Release 24hr 15 mg PO DAILY bisacodyl 5 mg Tablet,Delayed Release (Dr/Ec) 5 mg PO ONCE clonidine HCl 0.1 mg Tablet 0.1 mg PO BID hydromorphone [Dilaudid] 4 mg Tablet 4 mg PO HS docusate sodium [Colace] 100 mg Capsule 100 mg PO BID omega-3 fatty acids Capsule 500 mg PO BID metoprolol succinate 100 mg Tablet Extended Release 24 Hr 100 mg PO DAILY oxybutynin chloride 5 mg Tablet Extended Release 24hr 5 mg PO DAILY polyethylene glycol 3350 17 gram Powder In Packet 17 g PO DAILY prednisone 5 mg Tablet 5 mg PO DAILY cyanocobalamin (vitamin B-12) [Vitamin B-12] 1,000 mcg Tablet 1,000 mcg PO DAILY diclofenac sodium 1 % Gel 0 g topical QID Qty: 100 0RF warfarin 5 mg tablet 5 mg PO DAILY Qty: 30 0RF Rx Instructions: INR goal of 2-3 Do not take Ibuprofen or NSAIDS while on this medication Medical Decision Making Janet Corona is a 72-year-old woman?with history of hyperlipidemia, anemia, hypertension, GERD, cardiomegaly, lumbar spondylosis, osteoporosis, sarcoma now in remission presenting to the emergency department with back pain. 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 She is followed by [facility] [place] for this. Patient reports that 3 days ago she developed pain from upper back, radiating into her neck and lower back. Patient reports that since that time she has also had a cough, and has had vomiting. Patient reports that she has had a hard time keeping down any food since onset of pain/vomiting. Patient reports that pain is made worse by movement and certain positions. She states that that if she lies flat in bed she is able to get into a position of comfort where she no longer has any pain. Patient reports that she was seen in the [facility] department last night, patient reports that they did not find out what was wrong with me and did not do anything for me. Patient reports that symptoms have been unchanged today. She states that she was able to eat half a muffin this morning and hold it down. Patient reports that ever since being treated for cancer with chemotherapy she has had weight loss and somewhat poor p.o. intake. She denies any other pain, fever, shortness of breath, diarrhea, numbness, weakness, rash. Patient states that she has not had similar pain in the past. On exam patient is well nontoxic-appearing. Very thin and frail. There is upper thoracic spine and bilateral paraspinal tenderness to palpation that reproduces pain. Concern for pathologic fracture, metastatic disease, pneumonia, pulmonary embolism, other. Doubt acute coronary syndrome, acute aortic process. Exam/history at this time is not consistent with sepsis, acute emergent intra-abdominal process. Plan for EKG, IV placement, telemetry, screening labs, CT chest, CT thoracic spine. Given national IV contrast dye shortage, chest CT will be noncontrast based on radiology department protocols. I was contacted by radiology, patient with enlargement of thoracic aneurysm on CT, cannot exclude rupture, cannot exclude dissection. Second IV line placed, CTA thorax/abdomen ordered. Contacted [facility] transfer center at time of radiology report over the phone. Received call back from Dr. Rivas of vascular surgery, who recommended esmolol (patient's blood pressure currently 160 systolic), awaiting CTA. Patient signed out to Dr. Umaña at time of shift change with tPA, disposition pending. Medical Records Medical records reviewed: Yes I reviewed the patient's medical records. Lab Data Lab results reviewed: Yes I reviewed the patient's lab results. Labs: Laboratory Tests Range/Units 03/06/22 03/06/22 03/06/22 14:09 14:09 14:09 WBC (4.4-10.8) 10^3/uL 8.31 RBC (3.93-5.22) 10^6/uL 3.47 L Hgb (11.2-15.7) g/dL 11.7 Hct (36.0-46.0) % 37.5 MCV (80-95) fL 108 H MCH (27.0-33.0) pg 33.7 H MCHC (32.0-36.0) % 31.2 L RDW (11.7-14.6) % 15.0 H Plt Count (130-400) 10^3/uL 239 MPV (8.0-11.0) fL 9.0 Immature Gran % 0.4 Neutrophils % 72.7 Lymphocytes % 15.5 Monocytes % 10.8 Eosinophils % 0.5 Basophils % 0.1 Nucleated RBC % (0.0-0.3) % 0.0 Absolute Neutrophils (1.2-6.7) 10^3/uL 6.04 Absolute Lymphocytes (1.2-3.4) 10^3/uL 1.29 Absolute Monocytes (0.1-0.8) 10^3/uL 0.90 H Absolute Eosinophils (0.0-0.7) 10^3/uL 0.04 Absolute Basophils (0.0-0.2) 10^3/uL 0.01 PT (9.3-11.0) sec 15.4 H INR (0.9-1.1) 1.5 H D-Dimer (<500) ng/mlFEU Sodium (136-145) mmol/L 141 Potassium (3.5-5.1) mmol/L 3.8 Chloride (98-107) mmol/L 101 Carbon Dioxide (21.0-32.0) mmol/L 28.3 Anion Gap (3-11) mmol/L 11.7 H BUN (7-18) mg/dL 18 Creatinine (0.55-1.02) mg/dL 1.0 Estimated GFR/1.73 m2 (mL/min/1.73m2) 54.20 Glucose (74-106) mg/dL 106 Calcium (8.5-10.1) mg/dL 9.5 Magnesium (1.8-2.4) mg/dL 1.5 L Total Bilirubin (0.2-1.0) mg/dL 0.8 AST (15-37) U/L 26 ALT (14-59) U/L 21 Alkaline Phosphatase (46-116) U/L 107 Troponin I (<or=60) ng/L < 50 Total Protein (6.4-8.2) g/dL 7.9 Albumin (3.4-5.0) g/dL 3.6 Range/Units 03/06/22 14:09 WBC (4.4-10.8) 10^3/uL RBC (3.93-5.22) 10^6/uL Hgb (11.2-15.7) g/dL Hct (36.0-46.0) % MCV (80-95) fL MCH (27.0-33.0) pg MCHC (32.0-36.0) % RDW (11.7-14.6) % Plt Count (130-400) 10^3/uL MPV (8.0-11.0) fL Immature Gran % Neutrophils % Lymphocytes % Monocytes % Eosinophils % Basophils % Nucleated RBC % (0.0-0.3) % Absolute Neutrophils (1.2-6.7) 10^3/uL Absolute Lymphocytes (1.2-3.4) 10^3/uL Absolute Monocytes (0.1-0.8) 10^3/uL Absolute Eosinophils (0.0-0.7) 10^3/uL Absolute Basophils (0.0-0.2) 10^3/uL PT (9.3-11.0) sec INR (0.9-1.1) D-Dimer (<500) ng/mlFEU 5242 H Sodium (136-145) mmol/L Potassium (3.5-5.1) mmol/L Chloride (98-107) mmol/L Carbon Dioxide (21.0-32.0) mmol/L Anion Gap (3-11) mmol/L BUN (7-18) mg/dL Creatinine (0.55-1.02) mg/dL Estimated GFR/1.73 m2 (mL/min/1.73m2) Glucose (74-106) mg/dL Calcium (8.5-10.1) mg/dL Magnesium (1.8-2.4) mg/dL Total Bilirubin (0.2-1.0) mg/dL AST (15-37) U/L ALT (14-59) U/L Alkaline Phosphatase (46-116) U/L Troponin I (<or=60) ng/L Total Protein (6.4-8.2) g/dL Albumin (3.4-5.0) g/dL ECG Data Attestation: I personally reviewed and interpreted this ECG (s) as follows: Interpretation: EKG shows sinus rhythm at 79 HPI General Mode of arrival: wheelchair . Date/Time Provider Initiated Documentation: 03/06/22 13:21 . Limitations to Documentation: no limitations . Information obtained by: patient, RN notes reviewed and old records reviewed . HPI Narrative: Janet Corona is a 72-year-old woman?with history of hyperlipidemia, anemia, hypertension, GERD, cardiomegaly, lumbar spondylosis, osteoporosis, sarcoma now in remission presenting to the emergency department with back pain. 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 She is followed by [facility] for this. Patient reports that 3 days ago she developed pain from upper back, radiating into her neck and lower back. Patient reports that since that time she has also had a cough, and has had vomiting. Patient reports that she has had a hard time keeping down any food since onset of pain/vomiting. Patient reports that pain is made worse by movement and certain positions. She states that that if she lies flat in bed she is able to get into a position of comfort where she no longer has any pain. Patient reports that she was seen in the [facility] emergency department last night, patient reports that they did not find out what was wrong with me and did not do anything for me. Patient reports that symptoms have been unchanged today. She states that she was able to eat half a muffin this morning and hold it down. Patient reports that ever since being treated for cancer with chemotherapy she has had weight loss and somewhat poor p.o. intake. She denies any other pain, fever, shortness of breath, diarrhea, numbness, weakness, rash. Patient states that she has not had similar pain in the past. Related Data Home Medications Medication Instructions Recorded Confirmed acetaminophen 500 mg tablet 500 mg PO QID PRN 09/09/21 03/06/22 bisacodyl 5 mg tablet,delayed 5 mg PO ONCE 09/09/21 09/09/21 release clonidine HCl 0.1 mg tablet 0.1 mg PO BID 09/09/21 03/06/22 cyanocobalamin (vitamin B-12) 1,000 mcg PO DAILY 09/09/21 03/06/22 1,000 mcg tablet (Vitamin B-12) dextroamphetamine-amphetamine ER 15 mg PO DAILY 09/09/21 03/06/22 15 mg 24hr capsule,extend release (Adderall XR) diclofenac sodium 1 % topical gel 0 g topical QID #100 grams 09/09/21 03/06/22 docusate sodium 100 mg capsule 100 mg PO BID 09/09/21 03/06/22 (Colace) hydromorphone 4 mg tablet 4 mg PO HS Bedtime 09/09/21 03/06/22 (Dilaudid) metoprolol succinate 100 mg 100 mg PO DAILY 09/09/21 03/06/22 tablet,extended release 24 hr omega-3 fatty acids 500 mg PO BID 09/09/21 03/06/22 oxybutynin chloride 5 mg 5 mg PO DAILY 09/09/21 03/06/22 tablet,extended release 24 hr polyethylene glycol 3350 17 gram 17 g PO DAILY 09/09/21 03/06/22 oral powder packet prednisone 5 mg tablet 5 mg PO DAILY 09/09/21 03/06/22 warfarin 5 mg tablet 5 mg PO DAILY #30 tabs 09/09/21 03/06/22 Previous Rx's Medication Instructions Recorded diclofenac sodium 1 % topical gel 0 g topical QID #100 grams 09/09/21 warfarin 5 mg tablet 5 mg PO DAILY #30 tabs 09/09/21 Allergies Allergy/AdvReac Type Severity Reaction Status Date / Time lisinopril Allergy Hives Unverified 03/06/22 13:11 (Moderate) rosuvastatin [From Crestor] AdvReac Myalgias Unverified 03/06/22 13:38 (muscle pain) General Stated Complaint: Orthopedic KENDRA: 4 Review of Systems Narrative: Constitutional: denies fevers Eyes: denies eye pain ENT: denies ear pain, dental pain, sore throat Cardiovascular: denies chest pain, edema Respiratory: denies SOB, reports cough GI: denies abdominal pain, diarrhea, reports vomiting : denies flank pain MSK: denies arthralgias, myalgias, reports back pain Skin: denies rash Neuro: denies headaches, numbness, weakness PFSH All Active Problems Elevated troponin (Acute) Pulmonary emboli (Acute) Active Problem List Elevated troponin (Acute) Pulmonary emboli (Acute) Social History Smoking/Tobacco Use Status: Never Smoking risk assessment performed?: Yes Alcohol Intake: never Drug use: Never Substance use type: does not use Do you feel safe at home: No (bad neighbors) Do you feel safe in your relationship?: No Additional Social history: denies abuse Exam Narrative Exam Narrative: Constitutional: well and [id number], pleasant, conversing normally HENT: head atraumatic/normocephalic/normal inspection, mucous membranes moist Eyes: conjunctiva normal, sclera normal, pupils 3mm b/l Neck: no stridor, normal ROM, trachea midline, no cervical spine tenderness on palpation Chest: normal inspection Resp: normal work of breathing, LCTAB Cardio: normal rate, normal rhythm GI: abdomen soft, non-tender, non-distended Back: normal inspection, no rash, upper thoracic spine tenderness palpation that reproduces pain, bilateral upper thoracic paraspinal tenderness that reproduces pain, no overlying skin changes Skin: warm, dry, normal color, no rash Neuro: alert, not altered, grossly non-focal, normal tone Ext: no edema Psych: normal mood, normal affect, normal behavior Course Vital Signs Vital signs: Vital Signs Temperature 36.7 C 03/06/22 13:07 Pulse 78 03/06/22 13:07 Respiratory Rate 16 03/06/22 13:07 Blood Pressure 121/87 03/06/22 13:07 Pulse Oximetry 96 03/06/22 13:07 Temperature 36.7 C 03/06/22 13:07 Temperature Source Temporal Artery Scan 03/06/22 13:07 Pulse 78 03/06/22 13:07 Respiratory Rate 16 03/06/22 13:07 Blood Pressure 121/87 03/06/22 13:07 Blood Pressure Position Sitting 03/06/22 13:07 Pulse Oximetry 96 03/06/22 13:07 Oxygen Delivery Method Room Air 03/06/22 13:07 Oxygen Flow Rate 0 03/06/22 13:07 Pain Level 10 03/06/22 13:07
--- NOTE | 2022-03-06 13:30 | RT.EKG_ITS ---
APPROVED REPORT Exam: Resting ECG Reason for Exam: upper back pain Patient Location: E HR:79 bpm ECG Measurements Heart Rate 79 AXIS DE 178 P 62 QRSd 88 QRS -60 QT 405 T -4 QTc 465 Conclusion Sinus rhythm...normal P axis, V-rate 60- 99 Ventricular trigeminy...trigeminy string>6 w/ V complexes Sinus pause...long R-R interval, normal QRSd Left atrial enlargement...P, P'>60mS, <-0.15mV V1 Probable left ventricular hypertrophy...multiple LVH criteria Inferior infarct, old...Q >35mS, II III aVF no STEMI, non-diagnostic EKG I have reviewed and interpreted ECG and agree with software generated interpretation.
--- NOTE | 2022-03-06 14:00 | DI.CT_ITS ---
Exam(s) CT THORACIC SPINE WO CT CHEST WO EXAM: CT CHEST WO CT CHEST WO and CT thoracic spine without CLINICAL HISTORY: uper back pain, cough. TECHNIQUE: Imaging protocol: Axial computed tomography images were obtained and coronal and sagittal reformatted images were created and reviewed. COMPARISON: CT CT CTA CHEST W AND/OR WO CONTRAST from 09/08/[address] THORACIC SPINE WO from 03/06/2022 FINDINGS: Tracheobronchial tree: Patent where visualized. Pulmonary parenchyma: There is pleural and parenchymal scarring present. No focal consolidating infi ltrates are present. No architectural distortion. Mediastinum and Roseanna: No dominant adenopathy or fluid collection. The esophagus is unremarkable. Thyroid gland: Unremarkable. Pleura: No effusion or pneumothorax. Heart: The heart is not dilated. Coronary artery calcifications are present. No pericardial effusion . Aorta: There is a 4.7 x 3.9 cm aneurysm arising from the anterior aspect of the descending thoracic a jordan. The total AP diameter of the descending thoracic spine at this level is 7.3 cm. There does appe ar to be some high density material within the aneurysm and rupture cannot be excluded. The distal th oracic aorta measures up to 4.8 cm in diameter. The ascending aorta measures 4.6 x 4.1 cm. Upper abdomen: Unremarkable. Lymph nodes: Within normal limits. Soft tissues: Unremarkable. Bones:Within normal limits for the patient's age. The patient has a right shoulder replacement. CT scan thoracic spine without: There is an old L1 compression fracture deformity. There is anterior wedging of the T10 vertebral body. These findings are stable compared to the CT scan from [facility] dated 09/08/2021. No acute thoracic spine fractures are seen. Multilevel degenerative herrera ges are present. IMPRESSION: 1. Aneurysmal dilatation of the ascending and descending thoracic aorta. There is a focal saccular an eurysm arising from the anterior aspect of the descending thoracic aorta measuring 4.7 x 3.9 cm. In h igh density material within the aneurysm sac and rupture/dissection cannot be excluded. CT angiograph y is recommended for further evaluation. 2. There is no evidence of an acute thoracic spine fracture. The T10 and L1 compression deformities p resent on the CT scan of the chest from 09/08/2021. RADIATION DOSE DELIVERED: 322.17 mGy.cm Total DLP 322.17 mGy.cm Total DLP DATA REPOSITORY: All CT scans at this facility are submitted to the National Radiology Data Registry (NRDR) Dose Index Registry (DIR) with the [employer] (ACR). RADIATION OPTIMIZATION: All CT scans at this facility use at least one of these dose optimization te chniques: automated exposure control; mA and/or kV adjustment per patient size (includes targeted exa ms where dose is matched to clinical indication); or iterative reconstruction.
[2022-03-06 14:18] LABS: Abs Immature Grans 0.03 10^3/uL (0.0-0.06); Absolute Basophil Count 0.01 10^3/uL (0.0-0.2); Absolute Eosinophil Count 0.04 10^3/uL (0.0-0.7); Absolute Lymphocyte Count 1.29 10^3/uL (1.2-3.4); Absolute Neutrophil Count 6.04 10^3/uL (1.2-6.7); Basophils % 0.1; Eosinophils % 0.5; HCT 37.5 % (36.0-46.0); HGB 11.7 g/dL (11.2-15.7); Immature Grans % 0.4; Lymphocytes % 15.5; MCH 33.7 pg (27.0-33.0); MCHC 31.2 % (32.0-36.0); MCV 108 fL (80-95); Monocytes % 10.8; Neutrophils % 72.7; Platelet Count 239 10^3/uL (130-400); RBC 3.47 10^6/uL (3.93-5.22); RDW-SD 60.2 fL; WBC 8.31 10^3/uL (4.4-10.8)
[2022-03-06 14:36] LABS: INR 1.5 (0.9-1.1); Prothrombin Time 15.4 sec (9.3-11.0)
[2022-03-06 14:37] LABS: ALT 21 U/L (14-59); AST 26 U/L (15-37); Albumin 3.6 g/dL (3.4-5.0); Alkaline Phosphatase 107 U/L (46-116); Anion Gap 11.7 mmol/L (3-11); BUN 18 mg/dL (7-18); Bilirubin, Total 0.8 mg/dL (0.2-1.0); CO2 28.3 mmol/L (21.0-32.0); Calcium 9.5 mg/dL (8.5-10.1); Chloride 101 mmol/L (98-107); Glucose 106 mg/dL (74-106); Magnesium 1.5 mg/dL (1.8-2.4); Potassium 3.8 mmol/L (3.5-5.1); Sodium 141 mmol/L (136-145); Total Protein 7.9 g/dL (6.4-8.2); Troponin I < 50 ng/L (<or=60)
--- NOTE | 2022-03-06 14:45 | RT.EKG_ITS ---
APPROVED REPORT Exam: Resting ECG Reason for Exam: repeat Patient Location: E HR:88 bpm ECG Measurements Heart Rate 88 AXIS TX 168 P 60 QRSd 85 QRS -56 QT 393 T -5 QTc 477 Conclusion Sinus rhythm. Atrial premature complex. Probable left atrial enlargement Probable left ventricular hypertrophy. Inferior Q >35mS, II III aVF
[2022-03-06 14:53] LABS: D-Dimer 5242 ng/mlFEU (<500)
--- NOTE | 2022-03-06 15:15 | DI.CT_ITS ---
Exam(s) CT THORAX ABDOMEN CTA EXAM: CT THORAX ABDOMEN CTA CLINICAL HISTORY: abnormal aorta on CT non-con, back pain. TECHNIQUE: Imaging Protocol: Axial computed tomography images with coronal and sagittal reformatted images were created and reviewed CONTRAST MATERIAL: Intravenous: Visipaque-320 Contrast volume:100 ml Oral: None COMPARISON: CT CT CTA CHEST W AND/OR WO CONTRAST from 09/08/[address] THORACIC SPINE RECONS from 03/06/2022 FINDINGS: CHEST: AORTA: Again noted is significant dilatation of the entire thoracic aorta. The ascending thoracic aorta exh ibits diameter of 4.7 cm. The thoracic aortic arch exhibits diameter 3 point more cm. The distal ar ch and proximal descending thoracic aorta exhibits increased diameter 6 cm and this is a significant increased from the previous and the anterior wall and is indistinct relative to the adjacent esophagu s and there is significant suspicion for rupture/impending rupture at this level. The adjacent esoph bambi is thickened. No distinct dissection. Intraluminal filling defects in the distal thoracic aort a are either intraluminal thrombus or turbulent flow. In the abdomen renal arteries appear patent. Celiac and superior mesenteric arteries are patent. In ferior mesenteric artery is patent. The diameter of the abdominal aorta is 2 cm. No significant alicia nosis at the aortic bifurcation but there is generalized aneurysmal dilatation of the right common il iac artery which exhibits diameter of 1.9 cm. Diameter of the left common iliac artery exhibits diam eter of 1.3 cm. The external iliac arteries are not included in the field of view. PULMONARY ARTERIES: No obvious pulmonary emboli evident There is pectus excavatum. LUNGS: Right lung is clear. There is some atelectasis in the left lung, specifically in the left low er lobe adjacent to the abnormal enlarged ectatic descending thoracic aorta. No pleural effusion sydnie dent. MEDIASTINUM: There is no hilar nor mediastinal adenopathy. Visualized thyroid unremarkable. CARDIAC: Cardiomegaly. No pericardial effusion. ABDOMEN: There is no ascites. LIVER: There are no focal hepatic lesions nor dilatation of intrahepatic ducts. GALLBLADDER/BILIARY: No obvious gallbladder pathology. CBD is not dilated. PANCREAS: No evidence of pancreatic mass nor dilatation of the pancreatic duct. SPLEEN: Spleen is not enlarged. There are no intrasplenic lesions. ADRENALS: There are no significant adrenal masses. KIDNEYS: Parapelvic cyst in the left kidney noted which measures 2.5 x 3 cm. No calculi nor hydronep hrosis. No solid renal masses. ABDOMINAL AORTA: As above LYMPH NODES: There is no retroperitoneal nor para-aortic adenopathy. No obvious mesenteric masses. ABDOMINAL WALL: No evidence of significant anterior abdominal wall hernia. GI: There is no evidence of bowel obstruction, free air, nor abscess.There are no ischemic appearing bowel loops evident. PELVIS: Not included in the field of view. OSSEOUS: Pectus excavatum. Right shoulder prosthesis. There is a compression fracture at superior endplate level of L1 and milder compression fracture at s uperior endplate of L3. There is also wedge fracture of T10, probably not acute. IMPRESSION: 1. There is a large thoracic aortic aneurysm which has significantly increased in size from the prior study and appears to be undergoing rupture at this time at the level of the distal arch-proximal thang cending thoracic aorta. There is no dissection flap evident. 2. The abdominal aorta is atherosclerotic and there is generalized arterial megaly of the right commo n iliac artery which exhibits a luminal diameter of 1.9 cm. The left common iliac artery exhibits di ameter 1.3 cm. The external iliac arteries are not included in the field. 3. Other findings as above This study was 1st read by [facility] and communicated to the ER physician by [facility]. RADIATION DOSE DELIVERED: 370.33mGy.cm Total DLP DATA REPOSITORY: All CT scans at this facility are submitted to the National Radiology Data Registry (NRDR) Dose Index Registry (DIR) with the [employer] (ACR). RADIATION OPTIMIZATION: All CT scans at this facility use at least one of these dose optimization te chniques: automated exposure control; mA and/or kV adjustment per patient size (includes targeted exa ms where dose is matched to clinical indication); or iterative reconstruction.
--- NOTE | 2022-03-06 15:25 | DI.VRAD_ITS ---
Addendum created by Jan Delgado MD on 03/06/2022 3:29:37 PM EDT: THIS REPORT CONTAINS FINDINGS THAT MAY BE CRITICAL TO PATIENT CARE. The findings were verbally communicated via telephone conference with JANNA Cason at 3:29 PM EDT on 03/06/2022. The findings were acknowledged and understood. Initial report created on 03/06/2022 3:24:36 PM EDT: PROCEDURE INFORMATION: Exam: CT Chest Without Contrast; Diagnostic Exam date and time: 03/06/2022 2:57 PM Age: 72 years old Clinical indication: Other: Upper back pain, cough TECHNIQUE: Imaging protocol: Diagnostic computed tomography of the chest without contrast. 3D rendering (Not supervised by radiologist): MIP and/or 3D reconstructed images were created by the technologist. COMPARISON: CT CTA CHEST W AND/OR WO CONTRAST 09/08/2021 7:09 PM FINDINGS: Thyroid: The thyroid gland is within normal limits. Lungs: The tracheobronchial tree is patent bilaterally. Pleural spaces: Unremarkable. No pneumothorax. No pleural effusion. Heart: There is cardiomegaly. There are coronary artery calcifications. Lymph nodes: No enlarged lymph nodes. Vasculature: There are arteriosclerotic changes of the aorta. The ascending aorta measured up to 4.4 cm. This has increased in size when compared the prior study. The descending thoracic aorta measures up to 6.3 cm. This has increased in size when compared to the prior study. A dissection of the aorta is not excluded. There is hemorrhage at this level. A rupture at this level is not totally excluded. This should be further evaluated with a CTA of the chest. Kidneys and ureters: There is a left renal parapelvic simple renal cyst that is only partially imaged. There are coronary artery calcifications. Bones/joints: There is a pectus excavatum deformity. The patient is status post right shoulder replacement. There are severe degenerative changes of the left shoulder. There are degenerative changes of the thoracic spine. There is a the levoscoliosis of the thoracic spine. Soft tissues: Unremarkable. IMPRESSION: Thoracic aortic aneurysm has increased in size since the prior study. A rupture at this level is not totally excluded. A dissection is not excluded. Further evaluation with a CTA examination of the chest is recommended. Cardiomegaly. Coronary artery calcifications. Osseous findings as above. Dictated and Authenticated by: Jan Delgado MD. Ordering:DAVIDA Cleveland MD
--- NOTE | 2022-03-06 15:32 | DI.VRAD_ITS ---
PROCEDURE INFORMATION: Exam: CT Thoracic Spine Without Contrast Exam date and time: 03/06/2022 2:57 PM Age: 72 years old Clinical indication: Pain in thoracic spine TECHNIQUE: Imaging protocol: Computed tomography images of the thoracic spine without contrast. COMPARISON: CT CTA CHEST W AND/OR WO CONTRAST 09/08/2021 7:09 PM FINDINGS: Bones/joints: There is a levoscoliosis of the thoracic spine. There is osteopenia. There is partial collapse of the L1 vertebral body. This is seen centrally. There is slight wedging of the T10 vertebral body. A compression fracture at the level of T10 is not excluded. The pedicles are intact. Discs/Spinal canal/Neural foramina: There are degenerative changes. There is degenerative disc disease at multiple levels. Soft tissues: Unremarkable. IMPRESSION: Levoscoliosis of the thoracic spine. Partial collapse of the L1 vertebral body. Compression fracture at T10 is not totally excluded. There is anterior wedging of the T10 vertebral body. There is degenerative disc disease at multiple levels. Dictated and Authenticated by: Jan Delgado MD. Ordering:DAVIDA Cleveland MD
[2022-03-06] MEDS: Normal Saline Flush 10 ML SYR IVP (16:04)
[2022-03-06] MEDS: ESMOLOL 2,500 MG/250 ML BAG 14.152 MG IV (16:53)
--- NOTE | 2022-03-06 16:53 | DI.VRAD_ITS ---
Addendum created by Jan Delgado MD on 03/06/2022 5:09:49 PM EDT: THIS REPORT CONTAINS FINDINGS THAT MAY BE CRITICAL TO PATIENT CARE. The findings were verbally communicated via telephone conference with Dr. Umaña at 5:09 PM EDT on 03/06/2022. The findings were acknowledged and understood. Initial report created on 03/06/2022 4:53:13 PM EDT: PROCEDURE INFORMATION: Exam: CTA Chest With Contrast Exam date and time: 03/06/2022 3:57 PM Age: 72 years old Clinical indication: Other: Abnormal aorta on CT non-con, back pain TECHNIQUE: Imaging protocol: Computed tomographic angiography of the chest with contrast. 3D rendering (Not supervised by radiologist): MIP and/or 3D reconstructed images were created by the technologist. Radiation optimization: All CT scans at this facility use at least one of these dose optimization techniques: automated exposure control; mA and/or kV adjustment per patient size (includes targeted exams where dose is matched to clinical indication); or iterative reconstruction. Contrast material: VISIPAQUE 320; Contrast volume: 100 ml; Contrast route: INTRAVENOUS (IV); COMPARISON: CT CTA CHEST W AND/OR WO CONTRAST 09/08/2021 7:09 PM FINDINGS: Pulmonary arteries: There is no evidence of pulmonary embolus. Aorta: There is again noted the large thoracic aortic aneurysm. This could be secondary to a mycotic aneurysm, pseudoaneurysm versus a saccular aneurysm . There is a large associated thrombus. This is causing turbulent flow within the aorta. The esophagus is intimately associated with the thrombus. The esophagus appears thickened distal to the aneurysm. Does the patient have any signs of esophagitis? Clinical correlation is recommended. Thyroid: The thyroid gland is within normal limits. Lungs: The tracheobronchial tree is patent bilaterally. Pleural spaces: Unremarkable. No pneumothorax. No pleural effusion. Heart: There is cardiomegaly. There are coronary artery calcifications. Lymph nodes: No enlarged lymph nodes. Bones/joints: There is again noted the pectus excavatum deformity of the chest wall. There is again noted the previously mentioned osseous findings. There are degenerative changes of the thoracic and lumbar spines. The patient is status post right shoulder replacement surgery. There are severe degenerative changes of the left shoulder. Soft tissues: Unremarkable. Other findings: On the noncontrast enhanced study there was a crescent sign and therefore impending rupture is suspected. Again clinical correlation is suggested. IMPRESSION: Large thoracic aortic aneurysm which again is markedly increased in size when compared to the prior study study of 09/08/2021. [place] sign on the noncontrast study is suspicious for impending rupture. This could represent a large mycotic aneurysm, pseudoaneurysm versus large saccular aneurysm. The thrombus is intimately associated with the esophagus. The mucosa of the esophagus distal to the aneurysm is thickened. Clinical correlation is recommended. PROCEDURE INFORMATION: Exam: CT Angiography Abdomen With Contrast Exam date and time: 03/06/2022 3:57 PM Age: 72 years old Clinical indication: Other: Abnormal aorta on CT non-con, back pain TECHNIQUE: Imaging protocol: Computed tomographic angiography images of the abdomen with intravenous contrast material. 3D rendering (Not supervised by radiologist): MIP and/or 3D reconstructed images were created by the technologist. Radiation optimization: All CT scans at this facility use at least one of these dose optimization techniques: automated exposure control; mA and/or kV adjustment per patient size (includes targeted exams where dose is matched to clinical indication); or iterative reconstruction. Contrast material: VISIPAQUE 320; Contrast volume: 100 ml; Contrast route: INTRAVENOUS (IV); COMPARISON: CT CTA CHEST W AND/OR WO CONTRAST 09/08/2021 7:09 PM FINDINGS: Aorta: There are arteriosclerotic changes of the abdominal aorta. Celiac trunk and mesenteric arteries: No occlusion or significant stenosis. Renal arteries: No occlusion or significant stenosis. Right iliac arteries: There is slight aneurysmal dilatation of the right common iliac artery measuring 1.9 cm. Left iliac arteries: The left common iliac artery measured 1.3 cm. Liver: The liver is within normal limits. Gallbladder and bile ducts: The gallbladder is unremarkable. Pancreas: The pancreas is somewhat atrophic. Spleen: The spleen is within normal limits. Adrenals: The adrenal glands are unremarkable. Kidneys and ureters: There is a left simple parapelvic renal cyst measuring approximately 3.1 cm. The right kidney is within normal limits. Stomach and bowel: Unremarkable. No obstruction. No mucosal thickening. Lymph nodes: Unremarkable. No enlarged lymph nodes. Intraperitoneal space: Unremarkable. No free air. No significant fluid collection. Bones/joints: Unremarkable. No acute fracture. Soft tissues: Unremarkable. IMPRESSION: Arteriosclerotic changes of the aorta. Slight aneurysmal dilatation of the right common iliac artery measuring 1.9 cm. Dictated and Authenticated by: Jan Delgado MD. Ordering:DAVIDA Cleveland MD
--- NOTE | 2022-03-06 17:17 | NUR.NOTE ---
After speaking with [facility] manager radiation pharmacy to verify dosing for the esmolol, Jeni Hill and Kaylin verified and started the dosing appropriately.
--- NOTE | 2022-03-06 18:33 | ED.PROG_ITS ---
Date of service: 03/06/22 Time of Service: 17:33 Medical Decision Making Patient resting comfortably hemodynamically stable. Evidence of large thoracic aortic aneurysm concern for impending rupture. Spoke with vascular surgeon Dr. Rivas who is willing to accept patient for endovascular repair of aortic ane urysm. He will need to relay risks and benefits of this procedure specifically the 50 to 20% chance that this procedure could leave the patient paralyzed. I had a lengthy discussion with patient and patient's friend regarding risks and benefits of transferring procedure patient would like to proceed with transfer and endovascular repair. Patient is maxed out on esmolol drip blood pressure systolic ranging from 130-140. [facility] [employer] team is here for transport. Vascular surgeon is okay not reversing Coumadin. Patient stable for transfer. Sign Out Sign Out Data: Sign Out Comment: Patient signed out to Dr. Umaña at time of shift change with CTA, dispo pending Last updated by Megha Márquez MD at 03/06/22 16:19 Discharge Plan Discharge Details Chief Complaint: Vascular Primary Care Provider: Misael Jolley ED Provider: Otilio Umaña Home Meds and New Rx's Prescriptions: No Action acetaminophen 500 mg Tablet 500 mg PO QID PRN dextroamphetamine-amphetamine [Adderall XR] 15 mg Capsule,Extended Release 24hr 15 mg PO DAILY bisacodyl 5 mg Tablet,Delayed Release (Dr/Ec) 5 mg PO ONCE clonidine HCl 0.1 mg Tablet 0.1 mg PO BID hydromorphone [Dilaudid] 4 mg Tablet 4 mg PO HS docusate sodium [Colace] 100 mg Capsule 100 mg PO BID omega-3 fatty acids Capsule 500 mg PO BID metoprolol succinate 100 mg Tablet Extended Release 24 Hr 100 mg PO DAILY oxybutynin chloride 5 mg Tablet Extended Release 24hr 5 mg PO DAILY polyethylene glycol 3350 17 gram Powder In Packet 17 g PO DAILY prednisone 5 mg Tablet 5 mg PO DAILY cyanocobalamin (vitamin B-12) [Vitamin B-12] 1,000 mcg Tablet 1,000 mcg PO DAILY diclofenac sodium 1 % Gel 0 g topical QID Qty: 100 0RF warfarin 5 mg tablet 5 mg PO DAILY Qty: 30 0RF Rx Instructions: INR goal of 2-3 Do not take Ibuprofen or NSAIDS while on this medication
== END 2022-03-06 18:38 ==
PROVIDERS: Student in an Organized Health Care Education/Training Program; Emergency Provider Emergency Medicine; PCP Physician Assistant
DX: I71.2 Thoracic aortic aneurysm, without rupture (principal); M54.89 Other dorsalgia; R05.1 Acute cough; I10 Essential (primary) hypertension
CPT/HCPCS: 36415; 71250; 71275; 74175; 80053; 86850; 86900; 86901; 93005; 96365; 99285; 72128; 83735; 84484; 85025; 85379; 85610; 93010

== ENCOUNTER 2022-05-01 16:39 | Outpatient (REF) | payer MEDICARE, OTHER, SELFPAY ==
[2022-05-01 18:53] LABS: CREATININE 0.8 mg/dL (0.55-1.02)
== END 2022-05-01 16:40 | disposition home or self-care (01) ==
LOC: LBN 16:39
PROVIDERS: PCP Physician Assistant; Visit Provider Surgery
DX: Z86.79 Personal history of other diseases of the circulatory system (principal); Z98.890 Other specified postprocedural states; I10 Essential (primary) hypertension
CPT/HCPCS: 82565

== ENCOUNTER 2023-01-08 17:35 | Outpatient (REF) | payer MEDICARE, OTHER, SELFPAY ==
[2023-01-08 19:33] LABS: Abs Immature Grans 0.01 10^3/uL (0.0-0.06); Absolute Basophil Count 0.04 10^3/uL (0.0-0.2); Absolute Eosinophil Count 0.09 10^3/uL (0.0-0.7); Absolute Lymphocyte Count 1.57 10^3/uL (1.2-3.4); Absolute Monocyte Count 0.54 10^3/uL (0.1-0.8); Basophils % 0.7; Eosinophils % 1.6; HCT 41.4 % (36.0-46.0); HGB 12.1 g/dL (11.2-15.7); Immature Grans % 0.2; Lymphocytes % 27.8; MCHC 29.2 % (32.0-36.0); MCV 99 fL (80-95); MPV 10.2 fL (8.0-11.0); Monocytes % 9.6; Neutrophils % 60.1; Platelet Count 393 10^3/uL (130-400); RBC 4.17 10^6/uL (3.93-5.22); RDW-SD 94.3 fL; WBC 5.65 10^3/uL (4.4-10.8)
[2023-01-08 19:45] LABS: Iron 132 ug/dL (50-170); Total Iron Binding Capacity 316 ug/dL (250-450); Transferrin Sat 42 % (15-50)
[2023-01-08 20:05] LABS: Hemoglobin A1C 5.5 % (<5.7)
[2023-01-08 20:11] LABS: Vitamin D 25 Total 28.3 ng/mL (30-100)
[2023-01-08 20:19] LABS: ALT 98 U/L (14-59); AST 72 U/L (15-37); Albumin 2.6 g/dL (3.4-5.0); Alkaline Phosphatase 213 U/L (46-116); BUN 29 mg/dL (7-18); Bilirubin, Total 0.5 mg/dL (0.2-1.0); CREATININE 1.1 mg/dL (0.55-1.02); Calcium 8.2 mg/dL (8.5-10.1); Chloride 103 mmol/L (98-107); Ferritin 230 ng/mL (8-252); Glucose 92 mg/dL (74-106); Magnesium 1.5 mg/dL (1.8-2.4); Potassium 3.1 mmol/L (3.5-5.1); Sodium 148 mmol/L (136-145); TSH (W/Ref FT4) 17.36 uIU/mL (0.36-3.74); Total Protein 6.6 g/dL (6.4-8.2); Vitamin B12 748 pg/mL (193-986)
[2023-01-08 20:22] LABS: Folate > 20.0 ng/mL (8.6-20.0)
[2023-01-08 20:45] LABS: FREE T4 0.66 ng/dL (0.76-1.46); NT-proBNP 32510 pg/mL (<300)
[2023-01-08 21:57] LABS: Diff Comment RBC Morph Reviewed
[2023-01-08 21:58] LABS: Acanthocytes 3+
== END 2023-01-08 17:36 | disposition home or self-care (01) ==
LOC: LBN 17:35
PROVIDERS: PCP Physician Assistant; Visit Provider Nurse Practitioner Gerontology
DX: R68.89 Other general symptoms and signs (principal)
CPT/HCPCS: 80053; 82306; 82607; 82728; 82746; 83036; 83540; 83550; 83735; 83880; 84439; 84443; 85025

== ENCOUNTER 2023-01-16 18:55 | Outpatient (REF) | payer MEDICARE, OTHER, SELFPAY ==
[2023-01-16 17:02] LABS: Abs Immature Grans 0.02 10^3/uL (0.0-0.06); Absolute Basophil Count 0.03 10^3/uL (0.0-0.2); Absolute Eosinophil Count 0.07 10^3/uL (0.0-0.7); Absolute Lymphocyte Count 1.83 10^3/uL (1.2-3.4); Absolute Monocyte Count 0.57 10^3/uL (0.1-0.8); Absolute Neutrophil Count 5.08 10^3/uL (1.2-6.7); Basophils % 0.4; Eosinophils % 0.9; HCT 38.1 % (36.0-46.0); HGB 11.1 g/dL (11.2-15.7); Immature Grans % 0.3; Lymphocytes % 24.1; MCH 29.7 pg (27.0-33.0); MCHC 29.1 % (32.0-36.0); MCV 102 fL (80-95); MPV 10.1 fL (8.0-11.0); Monocytes % 7.5; Neutrophils % 66.8; Platelet Count 396 10^3/uL (130-400); RBC 3.74 10^6/uL (3.93-5.22); RDW 26.2 % (11.7-14.6); RDW-SD 94.3 fL
[2023-01-16 17:27] LABS: Anisocytosis 3+; Ovalocytes 2+; Target Cells 2+
== END 2023-01-16 18:56 | disposition home or self-care (01) ==
LOC: LBN 18:55
PROVIDERS: PCP Physician Assistant; Visit Provider Nurse Practitioner Gerontology
DX: D64.9 Anemia, unspecified (principal); R68.89 Other general symptoms and signs
CPT/HCPCS: 80053; 83880; 85025

== ENCOUNTER 2023-01-17 17:57 | Outpatient (REF) | payer MEDICARE, OTHER, SELFPAY ==
[2023-01-17 17:54] LABS: ALT 64 U/L (14-59); AST 56 U/L (15-37); Albumin 2.7 g/dL (3.4-5.0); Alkaline Phosphatase 176 U/L (46-116); Anion Gap 5.6 mmol/L (3-11); BUN 48 mg/dL (7-18); Bilirubin, Total 0.4 mg/dL (0.2-1.0); CO2 33.4 mmol/L (21.0-32.0); CREATININE 1.2 mg/dL (0.55-1.02); Calcium 8.9 mg/dL (8.5-10.1); Chloride 106 mmol/L (98-107); Estimated GFR 47.21 (mL/min/1.73m2); Glucose 90 mg/dL (74-106); NT-proBNP 19712 pg/mL (<300); Potassium 4.7 mmol/L (3.5-5.1); Sodium 145 mmol/L (136-145)
== END 2023-01-17 17:58 | disposition home or self-care (01) ==
LOC: LBN 17:57
PROVIDERS: PCP Physician Assistant; Visit Provider Nurse Practitioner Gerontology
DX: R68.89 Other general symptoms and signs (principal); D64.9 Anemia, unspecified; R06.89 Other abnormalities of breathing
CPT/HCPCS: 80053; 83880

== ENCOUNTER 2023-01-25 13:11 | Outpatient (REF) | payer MEDICARE, OTHER, SELFPAY ==
[2023-01-25 13:25] LABS: ALT 49 U/L (14-59); AST 51 U/L (15-37); Albumin 2.6 g/dL (3.4-5.0); Alkaline Phosphatase 151 U/L (46-116); Anion Gap 7.3 mmol/L (3-11); BUN 33 mg/dL (7-18); Bilirubin, Total 0.4 mg/dL (0.2-1.0); CO2 29.7 mmol/L (21.0-32.0); Chloride 107 mmol/L (98-107); Estimated GFR 58.75 (mL/min/1.73m2); Glucose 99 mg/dL (74-106); NT-proBNP 18090 pg/mL (<300); Potassium 4.9 mmol/L (3.5-5.1); Sodium 144 mmol/L (136-145); Total Protein 6.9 g/dL (6.4-8.2)
== END 2023-01-25 13:12 | disposition home or self-care (01) ==
LOC: LBN 13:11
PROVIDERS: PCP Physician Assistant; Visit Provider Nurse Practitioner Gerontology
DX: R68.89 Other general symptoms and signs (principal)
CPT/HCPCS: 80053; 83880

== ENCOUNTER 2023-02-02 07:54 | Outpatient (CLI) | payer MEDICARE, OTHER, SELFPAY ==
--- NOTE | 2023-02-02 07:45 | RT.EKG_ITS ---
APPROVED REPORT Exam: Resting ECG Reason for Exam: HF Patient Location: O HR:104 bpm ECG Measurements Heart Rate 104 AXIS MS 166 P 34 QRSd 102 QRS -35 QT 352 T 126 QTc 463 Conclusion Sinus tachycardia...rate> 99 Atrial premature complex...SV complex w/ short R-R interval Incomplete RBBB and LAFB...axis(240,-40), S>R II III aVF Abnormal R-wave progression, late transition...QRS area<0 in V5/V6 LVH with secondary repolarization abnormality...multi-LVH criteria, abnrm ST-T Artifact in lead(s) II,III,aVR,aVL,aVF
== END 2023-02-02 07:55 | disposition home or self-care (01) ==
LOC: DI.CARD 07:55
PROVIDERS: PCP Physician Assistant; Visit Provider Internal Medicine Cardiovascular Disease
DX: I50.9 Heart failure, unspecified (principal); R00.0 Tachycardia, unspecified; I42.8 Other cardiomyopathies
CPT/HCPCS: 93010

== ENCOUNTER → 2023-02-02 12:51 | Outpatient (BNVA) | payer MEDICARE, OTHER, SELFPAY | PROVIDERS: PCP Physician Assistant; Referring Provider Physician Assistant; Visit Provider Internal Medicine Cardiovascular Disease | DX: I42.8 Other cardiomyopathies (principal); I48.20 Chronic atrial fibrillation, unspecified; Z79.01 Long term (current) use of anticoagulants | CPT/HCPCS: 93005; 99203; 99213 ==

== ENCOUNTER 2023-03-07 18:19 | Outpatient (REF) | payer MEDICARE, OTHER, SELFPAY ==
[2023-03-07 18:46] LABS: Abs Immature Grans 0.02 10^3/uL (0.0-0.06); Absolute Basophil Count 0.05 10^3/uL (0.0-0.2); Absolute Eosinophil Count 0.64 10^3/uL (0.0-0.7); Absolute Monocyte Count 1.09 10^3/uL (0.1-0.8); Absolute Neutrophil Count 3.73 10^3/uL (1.2-6.7); Basophils % 0.6; Eosinophils % 7.2; HCT 31.1 % (36.0-46.0); HGB 9.5 g/dL (11.2-15.7); Immature Grans % 0.2; Lymphocytes % 37.4; MCHC 30.5 % (32.0-36.0); MCV 105 fL (80-95); MPV 9.6 fL (8.0-11.0); Monocytes % 12.3; Neutrophils % 42.3; Platelet Count 263 10^3/uL (130-400); RBC 2.97 10^6/uL (3.93-5.22); RDW 18.6 % (11.7-14.6); RDW-SD 72.8 fL; WBC 8.83 10^3/uL (4.4-10.8)
[2023-03-07 19:26] LABS: ALT 23 U/L (14-59); AST 31 U/L (15-37); Albumin 2.7 g/dL (3.4-5.0); Alkaline Phosphatase 120 U/L (46-116); Anion Gap 6.6 mmol/L (3-11); BUN 32 mg/dL (7-18); Bilirubin, Total 0.3 mg/dL (0.2-1.0); CO2 28.4 mmol/L (21.0-32.0); CREATININE 0.9 mg/dL (0.55-1.02); Calcium 8.8 mg/dL (8.5-10.1); Chloride 104 mmol/L (98-107); Estimated GFR 66.67 (mL/min/1.73m2); Glucose 84 mg/dL (74-106); Potassium 5.1 mmol/L (3.5-5.1); Sodium 139 mmol/L (136-145); TSH (W/Ref FT4) 2.34 uIU/mL (0.36-3.74); Total Protein 6.5 g/dL (6.4-8.2)
[2023-03-07 19:34] LABS: Vitamin D 25 Total 37.7 ng/mL (30-100)
[2023-03-07 19:45] LABS: NT-proBNP 5732 pg/mL (<300)
== END 2023-03-07 18:20 | disposition home or self-care (01) ==
LOC: LBN 18:19
PROVIDERS: PCP Physician Assistant; Visit Provider Nurse Practitioner Gerontology
DX: E03.9 Hypothyroidism, unspecified (principal); E87.6 Hypokalemia; I48.20 Chronic atrial fibrillation, unspecified; E55.9 Vitamin D deficiency, unspecified; I50.9 Heart failure, unspecified
CPT/HCPCS: 80053; 82306; 83880; 84443; 85025

== ENCOUNTER 2023-04-02 20:53 | Outpatient (REF) | payer MEDICARE, OTHER, SELFPAY ==
[2023-04-02 21:03] LABS: ALT 25 U/L (14-59); AST 29 U/L (15-37); Albumin 3.1 g/dL (3.4-5.0); Alkaline Phosphatase 105 U/L (46-116); BUN 44 mg/dL (7-18); Bilirubin, Total 0.3 mg/dL (0.2-1.0); CREATININE 1.2 mg/dL (0.55-1.02); Calcium 8.9 mg/dL (8.5-10.1); Chloride 103 mmol/L (98-107); Estimated GFR 47.21 (mL/min/1.73m2); Glucose 102 mg/dL (74-106); NT-proBNP 1797 pg/mL (<300); Potassium 4.7 mmol/L (3.5-5.1); Sodium 138 mmol/L (136-145); Total Protein 6.7 g/dL (6.4-8.2)
== END 2023-04-02 20:54 | disposition home or self-care (01) ==
LOC: LBN 20:53
PROVIDERS: PCP Physician Assistant; Visit Provider Nurse Practitioner Gerontology
DX: I26.99 Other pulmonary embolism without acute cor pulmonale (principal); I50.22 Chronic systolic (congestive) heart failure
CPT/HCPCS: 80053; 83880

== ENCOUNTER 2023-05-02 15:51 | Outpatient (REF) | payer MEDICARE, OTHER, SELFPAY ==
[2023-05-02 16:02] LABS: ALT 26 U/L (14-59); AST 33 U/L (15-37); Albumin 3.3 g/dL (3.4-5.0); Alkaline Phosphatase 100 U/L (46-116); Anion Gap 12.5 mmol/L (3-11); BUN 50 mg/dL (7-18); Bilirubin, Total 0.2 mg/dL (0.2-1.0); CO2 23.5 mmol/L (21.0-32.0); CREATININE 1.3 mg/dL (0.55-1.02); Chloride 103 mmol/L (98-107); Estimated GFR 42.88 (mL/min/1.73m2); Glucose 120 mg/dL (74-106); NT-proBNP 1167 pg/mL (<300); Potassium 4.4 mmol/L (3.5-5.1); Sodium 139 mmol/L (136-145); Total Protein 6.7 g/dL (6.4-8.2)
== END 2023-05-02 15:52 | disposition home or self-care (01) ==
LOC: LBN 15:51
PROVIDERS: PCP Physician Assistant; Visit Provider Nurse Practitioner Gerontology
DX: I11.0 Hypertensive heart disease with heart failure (principal); I50.42 Chronic combined systolic (congestive) and diastolic (congestive) heart failure; I73.9 Peripheral vascular disease, unspecified; I48.20 Chronic atrial fibrillation, unspecified
CPT/HCPCS: 80053; 83880

== ENCOUNTER 2023-05-16 12:51 | Outpatient (REF) | payer MEDICARE, OTHER, SELFPAY ==
[2023-05-16 13:29] LABS: Abs Immature Grans 0.02 10^3/uL (0.0-0.06); Absolute Basophil Count 0.05 10^3/uL (0.0-0.2); Absolute Eosinophil Count 0.59 10^3/uL (0.0-0.7); Absolute Lymphocyte Count 2.67 10^3/uL (1.2-3.4); Absolute Monocyte Count 0.85 10^3/uL (0.1-0.8); Basophils % 0.6; Eosinophils % 7.6; HCT 35.4 % (36.0-46.0); HGB 11.6 g/dL (11.2-15.7); Immature Grans % 0.3; Lymphocytes % 34.3; MCHC 32.8 % (32.0-36.0); MCV 101 fL (80-95); MPV 9.6 fL (8.0-11.0); Monocytes % 10.9; Neutrophils % 46.3; Platelet Count 284 10^3/uL (130-400); RBC 3.52 10^6/uL (3.93-5.22); RDW 14.1 % (11.7-14.6); RDW-SD 51.8 fL; WBC 7.78 10^3/uL (4.4-10.8)
[2023-05-16 14:03] LABS: ALT 29 U/L (14-59); AST 37 U/L (15-37); Albumin 3.5 g/dL (3.4-5.0); Alkaline Phosphatase 99 U/L (46-116); Anion Gap 8.7 mmol/L (3-11); BUN 53 mg/dL (7-18); Bilirubin, Total 0.4 mg/dL (0.2-1.0); CO2 29.3 mmol/L (21.0-32.0); CREATININE 1.4 mg/dL (0.55-1.02); Calcium 9.3 mg/dL (8.5-10.1); Chloride 98 mmol/L (98-107); Estimated GFR 39.23 (mL/min/1.73m2); Glucose 87 mg/dL (74-106); Potassium 4.4 mmol/L (3.5-5.1); Sodium 136 mmol/L (136-145); Total Protein 7.5 g/dL (6.4-8.2); Vitamin B12 1492 pg/mL (193-986)
[2023-05-16 14:31] LABS: NT-proBNP 1010 pg/mL (<300)
== END 2023-05-16 12:52 | disposition home or self-care (01) ==
LOC: LBN 12:51
PROVIDERS: PCP Physician Assistant; Visit Provider Nurse Practitioner Gerontology
DX: G89.4 Chronic pain syndrome (principal); D51.9 Vitamin B12 deficiency anemia, unspecified; I50.1 Left ventricular failure, unspecified; R68.89 Other general symptoms and signs
CPT/HCPCS: 80053; 82607; 83880; 85025

== ENCOUNTER 2023-06-01 18:03 | Outpatient (REF) | payer MEDICARE, OTHER, SELFPAY ==
[2023-06-01 17:56] LABS: ALT 28 U/L (14-59); AST 33 U/L (15-37); Albumin 3.7 g/dL (3.4-5.0); Alkaline Phosphatase 109 U/L (46-116); Anion Gap 12.3 mmol/L (3-11); BUN 56 mg/dL (7-18); Bilirubin, Total 0.3 mg/dL (0.2-1.0); CO2 25.7 mmol/L (21.0-32.0); CREATININE 1.5 mg/dL (0.55-1.02); Calcium 9.2 mg/dL (8.5-10.1); Chloride 100 mmol/L (98-107); Estimated GFR 36.12 (mL/min/1.73m2); Glucose 122 mg/dL (74-106); Potassium 4.5 mmol/L (3.5-5.1); Sodium 138 mmol/L (136-145); Total Protein 7.8 g/dL (6.4-8.2)
== END 2023-06-01 18:04 | disposition home or self-care (01) ==
LOC: LBN 18:03
PROVIDERS: PCP Physician Assistant; Visit Provider Nurse Practitioner Gerontology
DX: I26.99 Other pulmonary embolism without acute cor pulmonale (principal); G89.4 Chronic pain syndrome; R68.89 Other general symptoms and signs; E03.9 Hypothyroidism, unspecified; I11.0 Hypertensive heart disease with heart failure
CPT/HCPCS: 80053

== ENCOUNTER 2023-06-20 17:04 | Outpatient (REF) | payer MEDICARE, OTHER, SELFPAY ==
[2023-06-20 17:45] LABS: Abs Immature Grans 0.01 10^3/uL (0.0-0.06); Absolute Basophil Count 0.04 10^3/uL (0.0-0.2); Absolute Eosinophil Count 0.44 10^3/uL (0.0-0.7); Absolute Lymphocyte Count 2.48 10^3/uL (1.2-3.4); Absolute Monocyte Count 0.74 10^3/uL (0.1-0.8); Absolute Neutrophil Count 3.96 10^3/uL (1.2-6.7); Basophils % 0.5; Eosinophils % 5.7; HCT 38.2 % (36.0-46.0); HGB 12.2 g/dL (11.2-15.7); Immature Grans % 0.1; Lymphocytes % 32.3; MCH 32.4 pg (27.0-33.0); MCHC 31.9 % (32.0-36.0); MCV 101 fL (80-95); MPV 9.5 fL (8.0-11.0); Monocytes % 9.6; Neutrophils % 51.8; Platelet Count 289 10^3/uL (130-400); RBC 3.77 10^6/uL (3.93-5.22); RDW 13.6 % (11.7-14.6); WBC 7.67 10^3/uL (4.4-10.8)
[2023-06-20 18:02] LABS: ALT 27 U/L (14-59); AST 31 U/L (15-37); Albumin 3.8 g/dL (3.4-5.0); Alkaline Phosphatase 111 U/L (46-116); Anion Gap 9.4 mmol/L (3-11); BUN 75 mg/dL (7-18); Bilirubin, Total 0.3 mg/dL (0.2-1.0); CO2 29.6 mmol/L (21.0-32.0); CREATININE 1.6 mg/dL (0.55-1.02); Calcium 9.1 mg/dL (8.5-10.1); Chloride 98 mmol/L (98-107); Estimated GFR 33.42 (mL/min/1.73m2); Glucose 97 mg/dL (74-106); Potassium 3.9 mmol/L (3.5-5.1); Sodium 137 mmol/L (136-145)
[2023-06-22 09:32] LABS: IgA 465 mg/dL (85-499); IgG 1333 mg/dL (610-1616); IgM 105 mg/dL (35-242); Kappa Free Light Chain 11.18 mg/dL (0.33-1.94); Lambda Free Light Chain 2.53 mg/dL (0.57-2.63)
[2023-06-22 15:44] LABS: Albumin g/dL 4.3 g/dL (3.6-5.2); Comment (See Note); Total Protein 7.9 g/dL (6.3-8.2)
[2023-06-22 15:55] LABS: Immunotyping, Serum (See Note)
== END 2023-06-20 17:05 | disposition home or self-care (01) ==
LOC: LBN 17:04
PROVIDERS: PCP Physician Assistant; Visit Provider Internal Medicine Hematology & Oncology
DX: E87.6 Hypokalemia (principal); G89.4 Chronic pain syndrome; D47.2 Monoclonal gammopathy
CPT/HCPCS: 80053; 82784; 83883; 84165; 85025; 86320

== ENCOUNTER 2023-09-10 18:40 | Outpatient (REF) | payer MEDICARE, OTHER, SELFPAY ==
[2023-09-10 18:42] LABS: Abs Immature Grans 0.04 10^3/uL (0.0-0.06); Absolute Basophil Count 0.02 10^3/uL (0.0-0.2); Absolute Eosinophil Count 0.45 10^3/uL (0.0-0.7); Absolute Lymphocyte Count 3.06 10^3/uL (1.2-3.4); Absolute Monocyte Count 1.11 10^3/uL (0.1-0.8); Absolute Neutrophil Count 3.34 10^3/uL (1.2-6.7); Basophils % 0.2; Eosinophils % 5.6; HCT 37.1 % (36.0-46.0); Immature Grans % 0.5; Lymphocytes % 38.2; MCH 31.7 pg (27.0-33.0); MCHC 32.3 % (32.0-36.0); MCV 98 fL (80-95); MPV 9.9 fL (8.0-11.0); Monocytes % 13.8; Neutrophils % 41.7; Platelet Count 356 10^3/uL (130-400); RBC 3.78 10^6/uL (3.93-5.22); RDW 14.1 % (11.7-14.6); RDW-SD 50.4 fL; WBC 8.02 10^3/uL (4.4-10.8)
[2023-09-10 19:16] LABS: Vitamin B12 1593 pg/mL (193-986)
[2023-09-10 20:45] LABS: Calcium 8.9 mg/dL (8.5-10.1)
[2023-09-10 20:46] LABS: ALT 25 U/L (14-59); Albumin 3.3 g/dL (3.4-5.0); Alkaline Phosphatase 103 U/L (46-116); BUN 42 mg/dL (7-18); Bilirubin, Total 0.3 mg/dL (0.2-1.0); CO2 26.8 mmol/L (21.0-32.0); CREATININE 1.5 mg/dL (0.55-1.02); Chloride 98 mmol/L (98-107); Estimated GFR 36.12 (mL/min/1.73m2); Glucose 108 mg/dL (74-106); Sodium 137 mmol/L (136-145); Total Protein 7.3 g/dL (6.4-8.2)
== END 2023-09-10 18:41 | disposition home or self-care (01) ==
LOC: LBN 18:40
PROVIDERS: PCP Physician Assistant; Visit Provider Nurse Practitioner Gerontology
DX: D51.8 Other vitamin B12 deficiency anemias (principal); E87.6 Hypokalemia
CPT/HCPCS: 80053; 82947; 84520; 82040; 82247; 82310; 82374; 82435; 82565; 82607; 84075; 84132; 84155; 84295; 84460; 85025

== ENCOUNTER 2023-10-15 17:52 | Outpatient (REF) | payer MEDICARE, OTHER, SELFPAY ==
[2023-10-15 19:20] LABS: Abs Immature Grans 0.01 10^3/uL (0.0-0.06); Absolute Basophil Count 0.04 10^3/uL (0.0-0.2); Absolute Eosinophil Count 0.72 10^3/uL (0.0-0.7); Absolute Lymphocyte Count 2.02 10^3/uL (1.2-3.4); Absolute Monocyte Count 0.74 10^3/uL (0.1-0.8); Absolute Neutrophil Count 3.58 10^3/uL (1.2-6.7); Basophils % 0.6; Eosinophils % 10.1; HCT 35.5 % (36.0-46.0); Immature Grans % 0.1; Lymphocytes % 28.4; MCH 31.3 pg (27.0-33.0); MCV 101 fL (80-95); MPV 9.9 fL (8.0-11.0); Monocytes % 10.4; Neutrophils % 50.4; Platelet Count 387 10^3/uL (130-400); RBC 3.51 10^6/uL (3.93-5.22); RDW 15.8 % (11.7-14.6); RDW-SD 58.3 fL; WBC 7.11 10^3/uL (4.4-10.8)
[2023-10-15 20:02] LABS: ALT 24 U/L (14-59); AST 27 U/L (15-37); Albumin 3.5 g/dL (3.4-5.0); Alkaline Phosphatase 100 U/L (46-116); Anion Gap 9.2 mmol/L (3-11); BUN 44 mg/dL (7-18); Bilirubin, Total 0.3 mg/dL (0.2-1.0); CO2 27.8 mmol/L (21.0-32.0); CREATININE 1.3 mg/dL (0.55-1.02); Calcium 9.5 mg/dL (8.5-10.1); Chloride 102 mmol/L (98-107); Estimated GFR 42.88 (mL/min/1.73m2); Glucose 145 mg/dL (74-106); Potassium 4.2 mmol/L (3.5-5.1); Sodium 139 mmol/L (136-145); Total Protein 7.5 g/dL (6.4-8.2); Vitamin B12 543 pg/mL (193-986)
== END 2023-10-15 17:53 | disposition home or self-care (01) ==
LOC: LBN 17:52
PROVIDERS: PCP Physician Assistant; Visit Provider Nurse Practitioner Gerontology
DX: D51.8 Other vitamin B12 deficiency anemias (principal)
CPT/HCPCS: 80053; 82607; 85025

== ENCOUNTER 2023-10-22 15:54 | Outpatient (REF) | payer MEDICARE, OTHER, SELFPAY ==
[2023-10-22 16:11] LABS: ALT 24 U/L (14-59); AST 32 U/L (15-37); Albumin 3.5 g/dL (3.4-5.0); Alkaline Phosphatase 111 U/L (46-116); Anion Gap 9.8 mmol/L (3-11); BUN 44 mg/dL (7-18); Bilirubin, Total 0.3 mg/dL (0.2-1.0); CO2 28.2 mmol/L (21.0-32.0); CREATININE 1.4 mg/dL (0.55-1.02); Calcium 9.3 mg/dL (8.5-10.1); Chloride 100 mmol/L (98-107); Estimated GFR 39.23 (mL/min/1.73m2); Glucose 109 mg/dL (74-106); Potassium 4.6 mmol/L (3.5-5.1); Sodium 138 mmol/L (136-145); Total Protein 7.3 g/dL (6.4-8.2)
== END 2023-10-22 15:55 | disposition home or self-care (01) ==
LOC: LBN 15:54
PROVIDERS: PCP Physician Assistant; Visit Provider Nurse Practitioner Gerontology
DX: I50.42 Chronic combined systolic (congestive) and diastolic (congestive) heart failure (principal); D51.8 Other vitamin B12 deficiency anemias; R68.89 Other general symptoms and signs; G89.4 Chronic pain syndrome; E87.6 Hypokalemia
CPT/HCPCS: 80053

== ENCOUNTER 2023-12-17 18:12 | Outpatient (REF) | payer MEDICARE, OTHER, SELFPAY ==
[2023-12-17 20:11] LABS: Abs Immature Grans 0.02 10^3/uL (0.0-0.06); Absolute Basophil Count 0.03 10^3/uL (0.0-0.2); Absolute Eosinophil Count 0.52 10^3/uL (0.0-0.7); Absolute Lymphocyte Count 2.72 10^3/uL (1.2-3.4); Absolute Monocyte Count 0.73 10^3/uL (0.1-0.8); Absolute Neutrophil Count 3.95 10^3/uL (1.2-6.7); Basophils % 0.4; Eosinophils % 6.5; HCT 37.8 % (36.0-46.0); Immature Grans % 0.3; Lymphocytes % 34.1; MCH 31.1 pg (27.0-33.0); MCHC 31.7 % (32.0-36.0); MCV 98 fL (80-95); Monocytes % 9.2; Neutrophils % 49.5; Platelet Count 297 10^3/uL (130-400); RBC 3.86 10^6/uL (3.93-5.22); RDW 14.7 % (11.7-14.6); RDW-SD 52.9 fL; WBC 7.97 10^3/uL (4.4-10.8)
[2023-12-17 20:32] LABS: ALT 30 U/L (14-59); AST 34 U/L (15-37); Albumin 3.7 g/dL (3.4-5.0); Alkaline Phosphatase 121 U/L (46-116); Anion Gap 13.1 mmol/L (3-11); BUN 38 mg/dL (7-18); Bilirubin, Total 0.3 mg/dL (0.2-1.0); CO2 26.9 mmol/L (21.0-32.0); CREATININE 1.5 mg/dL (0.55-1.02); Chloride 102 mmol/L (98-107); Estimated GFR 36.12 (mL/min/1.73m2); Glucose 107 mg/dL (74-106); NT-proBNP 575 pg/mL (<300); Potassium 4.3 mmol/L (3.5-5.1); Sodium 142 mmol/L (136-145); Total Protein 7.8 g/dL (6.4-8.2)
[2023-12-17 21:10] LABS: Vitamin B12 1008 pg/mL (193-986)
[2023-12-18 19:43] LABS: CA 125 87 U/mL (<30)
[2023-12-19 10:24] LABS: IgA 396 mg/dL (85-499); IgG 969 mg/dL (610-1616); IgM 81 mg/dL (35-242); Kappa Free Light Chain 10.93 mg/dL (0.33-1.94); Lambda Free Light Chain 2.56 mg/dL (0.57-2.63)
[2023-12-19 13:45] LABS: Albumin 53.7 % (55.8-66.1); Albumin g/dL 4.1 g/dL (3.6-5.2); Comment (See Note); Total Protein 7.7 g/dL (6.3-8.2)
[2023-12-19 16:35] LABS: Immunotyping, Serum (See Note)
== END 2023-12-17 18:13 | disposition home or self-care (01) ==
LOC: LBN 18:12
PROVIDERS: PCP Physician Assistant; Visit Provider Nurse Practitioner Gerontology
DX: I50.9 Heart failure, unspecified (principal); D51.9 Vitamin B12 deficiency anemia, unspecified; C54.1 Malignant neoplasm of endometrium; R53.83 Other fatigue; D47.2 Monoclonal gammopathy
CPT/HCPCS: 80053; 82784; 86304; 82607; 83880; 83883; 84165; 84443; 85025; 86320

== ENCOUNTER 2024-02-15 19:35 | Outpatient (REF) | payer MEDICARE, OTHER, SELFPAY ==
[2024-02-15 18:51] LABS: HCT 36.4 % (36.0-46.0); HGB 11.5 g/dL (11.2-15.7); MCH 31.1 pg (27.0-33.0); MCHC 31.6 % (32.0-36.0); MCV 98 fL (80-95); MPV 9.1 fL (8.0-11.0); Platelet Count 380 10^3/uL (130-400); RDW 15.3 % (11.7-14.6); RDW-SD 55.1 fL; WBC 9.14 10^3/uL (4.4-10.8)
[2024-02-15 18:54] LABS: ESR 55 mm/hr (0-30)
[2024-02-15 18:59] LABS: Bilirubin Negative (Negative); Blood Trace-intact (Negative); Clarity Clear (Clear); Glucose Negative (Negative); Ketones Negative (Negative); Leukocyte Esterase Moderate (Negative); Nitrite Negative (Negative); Specific Gravity 1.015 (1.005-1.025); Urobilinogen 0.2 mg/dL (Up to 0.2); pH 6.5 (5-8)
[2024-02-15 19:09] LABS: ALT 20 U/L (14-59); AST 23 U/L (15-37); Albumin 3.4 g/dL (3.4-5.0); Alkaline Phosphatase 116 U/L (46-116); Anion Gap 8.2 mmol/L (3-11); BUN 48 mg/dL (7-18); Bilirubin, Total 0.4 mg/dL (0.2-1.0); CO2 31.8 mmol/L (21.0-32.0); CREATININE 1.5 mg/dL (0.55-1.02); Calcium 9.2 mg/dL (8.5-10.1); Chloride 103 mmol/L (98-107); Estimated GFR 35.89 (mL/min/1.73m2); Glucose 96 mg/dL (74-106); LDH 197 U/L (81-234); Magnesium 1.8 mg/dL (1.8-2.4); NT-proBNP 999 pg/mL (<300); Sodium 143 mmol/L (136-145); TSH (W/Ref FT4) 0.93 uIU/mL (0.36-3.74); Total Protein 7.5 g/dL (6.4-8.2)
[2024-02-15 19:13] LABS: Hemoglobin A1C 6.2 % (<5.7)
[2024-02-15 19:18] LABS: Epithelial Cells Moderate HPF (Negative); RBC 0-2 HPF (0-2)
[2024-02-15 19:19] LABS: Bacteria Rare HPF (Negative); C & S Indicated? C&S Done As Ordered; Casts 0-2 Hyaline LPF (Negative); Crystals Negative HPF (Negative); Mucus Negative (Negative); Other Cells Moderate Renal (Negative)
== END 2024-02-15 19:36 | disposition home or self-care (01) ==
LOC: LBN 19:35
PROVIDERS: PCP Physician Assistant; Visit Provider Nurse Practitioner Gerontology
DX: I11.0 Hypertensive heart disease with heart failure (principal); I50.42 Chronic combined systolic (congestive) and diastolic (congestive) heart failure
CPT/HCPCS: 80053; 85027; 85652; 87077; 81003; 81015; 83036; 83615; 83735; 83880; 84443; 87086

== ENCOUNTER 2024-03-17 20:25 | Outpatient (REF) | payer MEDICARE, OTHER, SELFPAY ==
[2024-03-18 19:05] LABS: CA 125 67 U/mL (<30)
== END 2024-03-17 20:26 | disposition home or self-care (01) ==
LOC: LBN 20:25
PROVIDERS: PCP Physician Assistant; Visit Provider Nurse Practitioner Gerontology
DX: E11.40 Type 2 diabetes mellitus with diabetic neuropathy, unspecified (principal)
CPT/HCPCS: 86304

== ENCOUNTER 2024-05-12 18:30 | Outpatient (REF) | payer MEDICARE, OTHER, SELFPAY ==
[2024-05-12 18:42] LABS: Abs Immature Grans 0.03 10^3/uL (0.0-0.06); Absolute Basophil Count 0.04 10^3/uL (0.0-0.2); Absolute Eosinophil Count 0.44 10^3/uL (0.0-0.7); Absolute Lymphocyte Count 2.53 10^3/uL (1.2-3.4); Absolute Monocyte Count 0.99 10^3/uL (0.1-0.8); Absolute Neutrophil Count 5.93 10^3/uL (1.2-6.7); Basophils % 0.4 %; Eosinophils % 4.4 %; HCT 36.3 % (36.0-46.0); HGB 11.2 g/dL (11.2-15.7); Immature Grans % 0.3 %; Lymphocytes % 25.4 %; MCHC 30.9 % (32.0-36.0); MCV 101 fL (80-95); MPV 9.4 fL (8.0-11.0); Monocytes % 9.9 %; Neutrophils % 59.6 %; Platelet Count 344 10^3/uL (130-400); RBC 3.61 10^6/uL (3.93-5.22); RDW 14.1 % (11.7-14.6); RDW-SD 51.3 fL; WBC 9.96 10^3/uL (4.4-10.8)
[2024-05-12 20:02] LABS: ALT 35 U/L (14-59); AST 28 U/L (15-37); Albumin 3.5 g/dL (3.4-5.0); Alkaline Phosphatase 109 U/L (46-116); Anion Gap 12.1 mmol/L (3-11); BUN 31 mg/dL (7-18); Bilirubin, Total 0.23 mg/dL (0.2-1.0); CO2 29.9 mmol/L (21.0-32.0); CREATININE 1.4 mg/dL (0.55-1.02); Calcium 9.1 mg/dL (8.5-10.1); Chloride 100 mmol/L (98-107); Estimated GFR 38.99 (mL/min/1.73m2); Glucose 109 mg/dL (74-106); Potassium 4.3 mmol/L (3.5-5.1); Sodium 142 mmol/L (136-145); Total Protein 7.4 g/dL (6.4-8.2)
[2024-05-13 18:40] LABS: CA 125 74 U/mL (<30)
[2024-05-14 09:44] LABS: Lambda Free Light Chain 2.31 mg/dL (0.57-2.63)
[2024-05-14 09:57] LABS: IgA 409 mg/dL (85-499); IgG 877 mg/dL (610-1616); IgM 83 mg/dL (35-242)
[2024-05-14 16:25] LABS: Albumin 53.2 % (55.8-66.1); Albumin g/dL 3.9 g/dL (3.6-5.2); Comment (See Note); Total Protein 7.3 g/dL (6.3-8.2)
[2024-05-15 04:37] LABS: Immunotyping, Serum (See Note)
== END 2024-05-12 18:31 | disposition home or self-care (01) ==
LOC: LBN 18:30
PROVIDERS: PCP Physician Assistant; Visit Provider Internal Medicine Hematology & Oncology
DX: C54.1 Malignant neoplasm of endometrium (principal)
CPT/HCPCS: 80053; 82784; 86304; 83883; 84165; 85025; 86320

== ENCOUNTER 2024-07-21 18:19 | Outpatient (REF) | payer MEDICARE, MEDICAID, SELFPAY ==
[2024-07-21 20:22] LABS: Calculated LDL 147 mg/dL (<100); Cholesterol 242 mg/dL (<200); HDL Cholesterol 62 mg/dL (40-60); LDL CHOLESTEROL 150 mg/dL (<100); Triglyceride 167 mg/dL (<150)
== END 2024-07-21 18:20 | disposition home or self-care (01) ==
LOC: LBN 18:19
PROVIDERS: PCP Physician Assistant; Visit Provider Nurse Practitioner Gerontology
DX: Z13.220 Encounter for screening for lipoid disorders (principal)
CPT/HCPCS: 80061; 83721

== ENCOUNTER 2024-07-30 02:01 | Outpatient (CLI) | payer MEDICARE, MEDICAID, SELFPAY ==
--- NOTE | 2024-07-30 | DI.CT_ITS ---
Exam(s) CT CHEST WO EXAM: CT CHEST WO CLINICAL HISTORY: HX PERITONEAL CARCINOMA, NEW ONSET NON-SPECIFIC RIB PAIN. TECHNIQUE: Multi planar reconstructions were performed. CONTRAST MATERIAL: None COMPARISON: CT CT THORAX ABDOMEN CTA from 03/06/[address] CHEST WO from 03/06/2022 FINDINGS: CHEST: LUNGS: There are mild benign-appearing increased markings in both lower lobes. No confluent infiltra ingrid nor pleural effusions. There are no ominous pulmonary nodules. No pleural plaques nor rib destr uction evident. MEDIASTINUM: There is no obvious hilar nor mediastinal adenopathy. Visualized thyroid unremarkable. CARDIAC: Cardiomegaly again noted. No new pericardial effusion.There has been interval placement of telescoping aortic endo grafts which originates just distal to the left subclavian artery takeoff poi nt and which extend down to the diaphragm cross. There does not appear to be fluid accumulation exte rnal to the endo graft material. Cannot assess the luminal content because this is a non contrast st udy.. Proximal to the graft the diameter of the ascending thoracic aorta is enlarged, measuring 4.6 cm but this is similar to previous. VISUALIZED UPPER ABDOMEN:No obvious findings. OSSEOUS: Pectus excavatum again noted.No rib fractures... No rib lesions. No vertebral body myles jeffrey fractures in the thoracic spinal column. A compression fracture of superior endplate of L1 is n oted which is unchanged from 202. IMPRESSION: 1. No new significant pulmonary findings nor pleural effusions. 2. Telescoping thoracic aortic endograft extending from just distal to the left subclavian artery renny eoff point to the diaphragm vinnie level of the aorta. This is difficult to assess accurately without IV contrast. However, there is no abnormal density nor fluid external to the endo graft. 3. Ascending thoracic aorta is again noted be enlarged at 4.6 cm, unchanged. Other findings as above. RADIATION DOSE DELIVERED: 186.15mGy.cm Total DLP DATA REPOSITORY: All CT scans at this facility are submitted to the National Radiology Data Registry (NRDR) Dose Index Registry (DIR) with the [employer] (ACR). RADIATION OPTIMIZATION: All CT scans at this facility use at least one of these dose optimization te chniques: automated exposure control; mA and/or kV adjustment per patient size (includes targeted exa ms where dose is matched to clinical indication); or iterative reconstruction.
== END 2024-07-30 02:21 ==
PROVIDERS: PCP Physician Assistant; Visit Provider Nurse Practitioner Gerontology
DX: R07.81 Pleurodynia (principal); C48.2 Malignant neoplasm of peritoneum, unspecified
CPT/HCPCS: 71250

== ENCOUNTER 2024-08-26 17:04 | Outpatient (REF) | payer MEDICARE, MEDICAID, SELFPAY ==
[2024-08-26 20:21] LABS: ALT 25 U/L (14-59); AST 25 U/L (15-37); Albumin 3.4 g/dL (3.4-5.0); Alkaline Phosphatase 119 U/L (46-116); Anion Gap 8.2 mmol/L (3-11); BUN 34 mg/dL (7-18); Bilirubin, Total 0.27 mg/dL (0.2-1.0); CO2 27.8 mmol/L (21.0-32.0); CREATININE 1.2 mg/dL (0.55-1.02); Calcium 9.1 mg/dL (8.5-10.1); Chloride 107 mmol/L (98-107); Estimated GFR 46.91 (mL/min/1.73m2); Glucose 138 mg/dL (74-106); Potassium 4.6 mmol/L (3.5-5.1); Sodium 143 mmol/L (136-145); Total Protein 7.3 g/dL (6.4-8.2)
[2024-08-27 20:29] LABS: CA 125 71 U/mL (<30)
[2024-08-28 09:31] LABS: IgA 420 mg/dL (85-499); IgG 853 mg/dL (610-1616); IgM 84 mg/dL (35-242); Kappa Free Light Chain 8.53 mg/dL (0.33-1.94); Lambda Free Light Chain 1.94 mg/dL (0.57-2.63)
[2024-08-28 13:07] LABS: Albumin 54.7 % (55.8-66.1); Albumin g/dL 3.9 g/dL (3.6-5.2); Comment (See Note); Total Protein 7.2 g/dL (6.3-8.2)
[2024-08-28 16:11] LABS: Immunotyping, Serum (See Note)
== END 2024-08-26 17:05 | disposition home or self-care (01) ==
LOC: LBN 17:04
PROVIDERS: PCP Physician Assistant; Visit Provider Nurse Practitioner Gerontology
DX: R97.1 Elevated cancer antigen 125 [CA 125]; C80.1 Malignant (primary) neoplasm, unspecified
CPT/HCPCS: 80048; 80053; 82784; 86304; 83735; 83883; 84165; 85025; 86320

== ENCOUNTER 2024-08-28 19:01 | Outpatient (REF) | payer MEDICARE, MEDICAID, SELFPAY ==
[2024-08-28 17:38] LABS: Abs Immature Grans 0.03 10^3/uL (0.0-0.06); Absolute Basophil Count 0.05 10^3/uL (0.0-0.2); Absolute Eosinophil Count 0.53 10^3/uL (0.0-0.7); Absolute Lymphocyte Count 2.54 10^3/uL (1.2-3.4); Absolute Monocyte Count 0.91 10^3/uL (0.1-0.8); Absolute Neutrophil Count 3.54 10^3/uL (1.2-6.7); Basophils % 0.7 %; HCT 34.8 % (36.0-46.0); HGB 10.9 g/dL (11.2-15.7); Immature Grans % 0.4 %; Lymphocytes % 33.4 %; MCH 32.1 pg (27.0-33.0); MCHC 31.3 % (32.0-36.0); MCV 102 fL (80-95); MPV 9.5 fL (8.0-11.0); Neutrophils % 46.5 %; Platelet Count 293 10^3/uL (130-400); RDW 14.5 % (11.7-14.6); RDW-SD 54.5 fL
== END 2024-08-28 19:02 | disposition home or self-care (01) ==
LOC: LBN 19:01
PROVIDERS: PCP Physician Assistant; Visit Provider Nurse Practitioner Gerontology
DX: C80.1 Malignant (primary) neoplasm, unspecified (principal)
CPT/HCPCS: 85025

== ENCOUNTER 2024-12-01 19:34 | Outpatient (REF) | payer MEDICARE, MEDICAID, SELFPAY ==
[2024-12-01 19:25] LABS: Abs Immature Grans 0.03 10^3/uL (0.0-0.06); Absolute Basophil Count 0.01 10^3/uL (0.0-0.2); Absolute Lymphocyte Count 0.65 10^3/uL (1.2-3.4); Absolute Monocyte Count 0.14 10^3/uL (0.1-0.8); Basophils % 0.2 %; HGB 11.9 g/dL (11.2-15.7); Immature Grans % 0.6 %; Lymphocytes % 12.4 %; MCH 31.1 pg (27.0-33.0); MCHC 31.3 % (32.0-36.0); MCV 99 fL (80-95); MPV 9.5 fL (8.0-11.0); Monocytes % 2.7 %; Neutrophils % 84.1 %; Platelet Count 347 10^3/uL (130-400); RBC 3.83 10^6/uL (3.93-5.22); RDW 14.2 % (11.7-14.6); RDW-SD 51.8 fL; WBC 5.23 10^3/uL (4.4-10.8)
[2024-12-01 20:25] LABS: ALT 33 U/L (14-59); AST 33 U/L (15-37); Albumin 3.4 g/dL (3.4-5.0); Alkaline Phosphatase 107 U/L (46-116); Anion Gap 14.4 mmol/L (3-11); BUN 59 mg/dL (7-18); Bilirubin, Total 0.24 mg/dL (0.2-1.0); CO2 23.6 mmol/L (21.0-32.0); CREATININE 1.8 mg/dL (0.55-1.02); Chloride 102 mmol/L (98-107); Estimated GFR 28.84 (mL/min/1.73m2); Glucose 203 mg/dL (74-106); Potassium 4.4 mmol/L (3.5-5.1); Sodium 140 mmol/L (136-145); TSH (W/Ref FT4) 0.19 uIU/mL (0.36-3.74); Total Protein 7.3 g/dL (6.4-8.2)
[2024-12-02 01:09] LABS: NT-proBNP 738 pg/mL (<300)
[2024-12-02 02:40] LABS: FREE T4 1.06 ng/dL (0.76-1.46)
== END 2024-12-01 19:35 | disposition home or self-care (01) ==
LOC: LBN 19:34
PROVIDERS: PCP Physician Assistant; Visit Provider Nurse Practitioner Gerontology
DX: I50.42 Chronic combined systolic (congestive) and diastolic (congestive) heart failure (principal); I11.0 Hypertensive heart disease with heart failure; E03.9 Hypothyroidism, unspecified
CPT/HCPCS: 80053; 83880; 84439; 84443; 85025

== ENCOUNTER 2024-12-21 16:31 | Outpatient (REF) | payer MEDICARE, MEDICAID, SELFPAY ==
[2024-12-21 15:58] LABS: CREATININE 1.1 mg/dL (0.55-1.02); Estimated GFR 52.08 (mL/min/1.73m2)
== END 2024-12-21 16:32 | disposition home or self-care (01) ==
LOC: LBN 16:31
PROVIDERS: PCP Physician Assistant; Visit Provider Nurse Practitioner Gerontology
DX: I26.99 Other pulmonary embolism without acute cor pulmonale (principal); R94.4 Abnormal results of kidney function studies; R79.89 Other specified abnormal findings of blood chemistry; Z13.228 Encounter for screening for other metabolic disorders; I73.9 Peripheral vascular disease, unspecified
CPT/HCPCS: 82565

== ENCOUNTER 2024-12-22 01:10 | Outpatient (CLI) | payer MEDICARE, MEDICAID, SELFPAY ==
--- NOTE | 2024-12-22 11:54 | DI.CT_ITS ---
Exam(s) CT THORAX ABD/PEL CTA EXAM: CT THORAX ABD/PEL CTA CLINICAL HISTORY: I71.60 TAAA w/o rupture, eval for change in aneurysm, new endoleak, Please. TECHNIQUE: Imaging Protocol: Axial CT angiography was performed with multi-slice acquisition and mu lti-planar and/or 3D reconstructions. Computer aided detection (CAD) was utilized. CONTRAST MATERIAL: Intravenous: Omnipaque 350 Contrast volume:100 ml COMPARISON: CT CT THORACIC SPINE RECONS from 03/06/[address] THORAX ABDOMEN CTA from 03/06/[address] CHEST WO from 07/30/2024 FINDINGS: CHEST: Pulmonary Arteries: Pulmonary arteries are suboptimally opacified no gross evidence of filling defect s to suggest pulmonary emboli. Tracheobronchial tree: No bronchiectasis or mucus plugging. Mediastinum and Roseanna: No dominant adenopathy or fluid collection. Pulmonary parenchyma: No consolidation or dominant measurable mass. Mild dependent changes. Pleura: No effusion. No pneumothorax. Heart: The heart is dilated, unchanged. [id number] coronary artery calcifications are seen. Aorta: Stable dilatation of the ascending aorta to 4.6 cm. Aortic arch and descending aorta endo gra ft are again noted. There is no evidence endoleak. Bones: Severe pectus excavatum deformity. Right shoulder prosthesis creates artifact. Scoliosis and degenerative changes in the spine Tubes, Catheters, and Lines: None. Soft tissues: Unremarkable. ABDOMEN and PELVIS: Liver: Normal size. Normal density. No suspicious measurable mass. Gallbladder and Biliary Tract: No radiodense calculus. No biliary dilatation. Pancreas: Normal density, no abnormal calcifications or inflammatory process. Spleen: Normal. Adrenals: No masses seen. Kidneys: Normal size, contour and axis. No radiodense stones. No obstructive uropathy. Stable left r enal cyst. No suspicious masses seen. Vasculature: Abdominal aorta non-dilated. Moderate atherosclerotic change the calcifications in the aorta and iliac arteries. No significant stenosis. The celiac axis, SMA, NICKY and renal arteries christos w no significant stenosis. Bowel: No obstruction or bowel wall thickening. Appendix is unremarkable. Large quantity of stool i n the rectum. Normal skull quantity of stool elsewhere. Peritoneal Cavity: No ascites, collection or mesenteric inflammatory response. Lymph Nodes: Within normal limits. Soft Tissues: Unremarkable. Bladder: Symmetric distention, no gross wall thickening. Reproductive Organs: Hysterectomy Bones: Stable L1 compression fracture. Scoliosis and degenerative changes. IMPRESSION: 1. Stable diameter thoracic aorta. Stable appearance aortic arch and descending aorta endo grass. N o evidence of leak. 2. No acute abdominal or pelvic process. No evidence of abdominal aortic aneurysm or significant alicia nosis. Branch vessels are patent. RADIATION DOSE DELIVERED: 519.47mGy.cm Total DLP 519.47mGy.cm Total DLP DATA REPOSITORY: All CT scans at this facility are submitted to the National Radiology Data Registry (NRDR) Dose Index Registry (DIR) with the [employer] (A[employer]). RADIATION OPTIMIZATION: All CT scans at this facility use at least one of these dose optimization te chniques: automated exposure control; mA and/or kV adjustment per patient size (includes targeted exa ms where dose is matched to clinical indication); or iterative reconstruction.
[2024-12-22] MEDS: Normal Saline - Diluent 50 ML VIAL IJ (11:56)
[2024-12-22] MEDS: Omnipaque 350 MG/ML 100 ML BTL IJ (11:57)
== END 2024-12-22 01:30 ==
LOC: DI 01:10
PROVIDERS: PCP Physician Assistant; Visit Provider Surgery Vascular Surgery
DX: I71.60 Thoracoabdominal aortic aneurysm, without rupture, unspecified (principal)
CPT/HCPCS: 71275; 74174; J3490

== ENCOUNTER 2025-01-15 17:53 | Outpatient (REF) | payer MEDICARE, MEDICAID, SELFPAY ==
[2025-01-15 17:47] LABS: Iron 64 ug/dL (50-170); Total Iron Binding Capacity 347 ug/dL (250-450)
[2025-01-15 17:52] LABS: Hemoglobin A1C 5.9 % (<5.7)
[2025-01-15 18:14] LABS: Anion Gap 12.6 mmol/L (3-11); BUN 23 mg/dL (7-18); CO2 23.4 mmol/L (21.0-32.0); CREATININE 1.1 mg/dL (0.55-1.02); Calcium 9.3 mg/dL (8.5-10.1); Chloride 108 mmol/L (98-107); Estimated GFR 51.75 (mL/min/1.73m2); Ferritin 65 ng/mL (8-252); Glucose 144 mg/dL (74-106); Potassium 4.4 mmol/L (3.5-5.1); Sodium 144 mmol/L (136-145); TSH (W/Ref FT4) 1.35 uIU/mL (0.36-3.74); Vitamin B12 932 pg/mL (193-986)
[2025-01-15 18:33] LABS: Folate > 20.0 ng/mL (8.6-20.0)
== END 2025-01-15 17:54 | disposition home or self-care (01) ==
LOC: LBN 17:53
PROVIDERS: PCP Physician Assistant; Visit Provider Nurse Practitioner Gerontology
DX: D51.9 Vitamin B12 deficiency anemia, unspecified (principal); R73.03 Prediabetes; R53.82 Chronic fatigue, unspecified; E55.9 Vitamin D deficiency, unspecified; D50.9 Iron deficiency anemia, unspecified; D52.9 Folate deficiency anemia, unspecified; E87.8 Other disorders of electrolyte and fluid balance, not elsewhere classified
CPT/HCPCS: 80048; 82607; 82728; 82746; 83036; 83540; 83550; 83735; 84443

== ENCOUNTER 2025-01-29 12:33 | Outpatient (REF) | payer MEDICARE, MEDICAID, SELFPAY ==
[2025-01-29 12:51] LABS: INR 1.1 (0.9-1.1); Prothrombin Time 11.1 sec (9.1-11.1)
== END 2025-01-29 12:34 | disposition home or self-care (01) ==
LOC: LBN 12:33
PROVIDERS: PCP Physician Assistant; Visit Provider Nurse Practitioner Gerontology
DX: Z79.01 Long term (current) use of anticoagulants (principal); Z01.818 Encounter for other preprocedural examination; T88.1XXA Other complications following immunization, not elsewhere classified, initial encounter; G89.21 Chronic pain due to trauma
CPT/HCPCS: 85610

== ENCOUNTER 2025-02-05 21:02 | Outpatient (REF) | payer MEDICARE, MEDICAID, SELFPAY ==
[2025-02-05 19:52] LABS: Abs Immature Grans 0.01 10^3/uL (0.0-0.06); Absolute Basophil Count 0.05 10^3/uL (0.0-0.2); Absolute Eosinophil Count 0.36 10^3/uL (0.0-0.7); Absolute Lymphocyte Count 2.12 10^3/uL (1.2-3.4); Absolute Monocyte Count 0.62 10^3/uL (0.1-0.8); Absolute Neutrophil Count 4.89 10^3/uL (1.2-6.7); Basophils % 0.6 %; Eosinophils % 4.5 %; HCT 39.3 % (36.0-46.0); HGB 12.6 g/dL (11.2-15.7); Immature Grans % 0.1 %; Lymphocytes % 26.3 %; MCH 31.8 pg (27.0-33.0); MCHC 32.1 % (32.0-36.0); MCV 99 fL (80-95); MPV 9.5 fL (8.0-11.0); Monocytes % 7.7 %; Neutrophils % 60.8 %; Platelet Count 305 10^3/uL (130-400); RBC 3.96 10^6/uL (3.93-5.22); RDW-SD 51.3 fL; WBC 8.05 10^3/uL (4.4-10.8)
[2025-02-05 20:25] LABS: ALT 25 U/L (14-59); AST 29 U/L (15-37); Albumin 3.8 g/dL (3.4-5.0); Alkaline Phosphatase 125 U/L (46-116); Anion Gap 11.1 mmol/L (3-11); BUN 36 mg/dL (7-18); Bilirubin, Total 0.2 mg/dL (0.2-1.0); CO2 27.9 mmol/L (21.0-32.0); CREATININE 1.4 mg/dL (0.55-1.02); Calcium 8.9 mg/dL (8.5-10.1); Chloride 106 mmol/L (98-107); Estimated GFR 38.75 (mL/min/1.73m2); Ferritin 79 ng/mL (8-252); Glucose 84 mg/dL (74-106); Potassium 4.7 mmol/L (3.5-5.1); Sodium 145 mmol/L (136-145); Total Protein 7.6 g/dL (6.4-8.2)
[2025-02-06 18:57] LABS: CA 125 87 U/mL (<30)
[2025-02-09 10:33] LABS: IgA 415 mg/dL (85-499); IgG 863 mg/dL (610-1616); IgM 97 mg/dL (35-242)
[2025-02-09 15:24] LABS: Albumin 55.3 % (55.8-66.1); Albumin g/dL 4.1 g/dL (3.6-5.2); Comment (See Note); Total Protein 7.5 g/dL (6.3-8.2)
[2025-02-09 15:28] LABS: Immunotyping, Serum (See Note)
== END 2025-02-05 21:03 | disposition home or self-care (01) ==
LOC: LBN 21:02
PROVIDERS: PCP Physician Assistant; Visit Provider Internal Medicine Hematology & Oncology
DX: C80.1 Malignant (primary) neoplasm, unspecified (principal); D47.2 Monoclonal gammopathy; R97.1 Elevated cancer antigen 125 [CA 125]; D63.8 Anemia in other chronic diseases classified elsewhere
CPT/HCPCS: 80053; 82784; 86304; 82728; 83883; 84165; 85025; 86320

== ENCOUNTER 2025-02-19 16:56 | Outpatient (REF) | payer MEDICARE, MEDICAID, SELFPAY ==
[2025-02-19 17:40] LABS: Prothrombin Time 10.4 sec (9.1-11.1)
== END 2025-02-19 16:57 | disposition home or self-care (01) ==
LOC: LBN 16:56
PROVIDERS: PCP Physician Assistant; Visit Provider Anesthesiology
DX: Z01.812 Encounter for preprocedural laboratory examination (principal)
CPT/HCPCS: 85610

== ENCOUNTER 2025-05-25 09:55 | Outpatient (CLI) | payer MEDICARE, MEDICAID, SELFPAY ==
--- NOTE | 2025-05-25 13:26 | DI.RAD_ITS ---
Exam(s) XR KNEE RT 3V AP,LAT,DANIEL EXAM: XR KNEE RT 3V AP,LAT,DANIEL CLINICAL HISTORY: OA, AP,lateral, weight bearing. TECHNIQUE: 2D digital imaging was performed. Three views. COMPARISON: No exams were available for comparison FINDINGS: BONES: No acute fracture is present. No bony destructive lesion is seen. JOINTS: There is severe narrowing of the lateral femoral tibial joint space, with a [id number] appearance. There is moderate to severe narrowing of the medial femoral tibial joint space. Chondrocalcinosis is faintly visualized. Degenerative changes are also present at the patellofemoral joint. No joint effusion is seen. SOFT TISSUE: Vascular calcifications. IMPRESSION: Severe degenerative changes. DATA REPOSITORY: RADIATION DOSE DELIVERED:
--- NOTE | 2025-05-25 13:27 | DI.RAD_ITS ---
Exam(s) XR KNEE LT 3V AP,LAT,DANIEL EXAM: XR KNEE LT 3V AP,LAT,DANIEL CLINICAL HISTORY: OA, AP,lateral, weight bearing. TECHNIQUE: 2D digital imaging was performed. Three views. COMPARISON: CR XR KNEE RT 3V AP,LAT,DANIEL from 05/25/2025 FINDINGS: BONES: No acute fracture is present. No bony destructive lesion is seen. JOINTS: There are severe degenerative changes of both femoral tibial joints, severe joint space narrowing and periarticular spurring. Degenerative changes also present at the patellofemoral joint. No joint effusion is seen. SOFT TISSUE: Vascular calcifications. 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 DATA REPOSITORY: RADIATION DOSE DELIVERED:
== END 2025-05-25 10:15 ==
LOC: DI 09:55
PROVIDERS: PCP Physician Assistant; Visit Provider Nurse Practitioner Gerontology
DX: M17.12 Unilateral primary osteoarthritis, left knee (principal)
CPT/HCPCS: 73562

== ENCOUNTER 2025-08-05 18:36 | Outpatient (REF) | payer MEDICARE, MEDICAID, SELFPAY ==
[2025-08-05 17:51] LABS: Abs Immature Grans 0.02 10^3/uL (0.0-0.06); HCT 38.6 % (36.0-46.0); HGB 11.8 g/dL (11.2-15.7); Immature Grans % 0.2 %; MCH 31.1 pg (27.0-33.0); MCHC 30.6 % (32.0-36.0); MCV 102 fL (80-95); MPV 10.0 fL (8.0-11.0); Platelet Count 309 10^3/uL (130-400); RBC 3.79 10^6/uL (3.93-5.22); RDW 13.7 % (11.7-14.6); RDW-SD 52.0 fL; WBC 8.03 10^3/uL (4.4-10.8)
[2025-08-05 18:05] LABS: ALT 20 U/L (14-59); AST 23 U/L (15-37); Albumin 3.4 g/dL (3.4-5.0); Alkaline Phosphatase 121 U/L (46-116); Anion Gap 9.5 mmol/L (3-11); BUN 29 mg/dL (7-18); Bilirubin, Total 0.2 mg/dL (0.2-1.0); CO2 23.5 mmol/L (21.0-32.0); Calcium 8.5 mg/dL (8.5-10.1); Chloride 106 mmol/L (98-107); Estimated GFR 58.02 (mL/min/1.73m2); Glucose 64 mg/dL (74-106); Potassium 5.6 mmol/L (3.5-5.1); Sodium 139 mmol/L (136-145); Total Protein 6.9 g/dL (6.4-8.2)
[2025-08-06 19:02] LABS: CA 125 78 U/mL (<30)
[2025-08-07 10:12] LABS: Kappa Free Light Chain 7.60 mg/dL (0.33-1.94); Lambda Free Light Chain 1.96 mg/dL (0.57-2.63)
[2025-08-07 15:20] LABS: Albumin 56.2 % (55.8-66.1); Albumin g/dL 3.9 g/dL (3.6-5.2); Alpha 1 g/dL 0.30 g/dL (0.15-0.40); Alpha 2 g/dL 1.00 g/dL (0.50-1.00); Beta g/dL 1.00 g/dL (0.60-1.20); Gamma g/dL 0.70 g/dL (0.60-1.60); Total Protein 6.9 g/dL (6.3-8.2)
== END 2025-08-05 18:37 | disposition home or self-care (01) ==
LOC: LBN 18:36
PROVIDERS: PCP Legal Medicine; Visit Provider Internal Medicine Hematology & Oncology
DX: D47.2 Monoclonal gammopathy (principal); C54.1 Malignant neoplasm of endometrium; C80.1 Malignant (primary) neoplasm, unspecified; E87.8 Other disorders of electrolyte and fluid balance, not elsewhere classified
CPT/HCPCS: 80053; 82784; 86304; 83883; 84165; 85025; 86320

== ENCOUNTER → 2025-08-28 10:09 | Outpatient (BNVA) | payer MEDICARE, MEDICAID, SELFPAY | PROVIDERS: PCP Legal Medicine; Referring Provider Legal Medicine; Visit Provider Physician Assistant | DX: M17.0 Bilateral primary osteoarthritis of knee (principal) | CPT/HCPCS: 20610; 99213; J1010 ==

== ENCOUNTER 2025-09-14 17:35 | Outpatient (REF) | payer MEDICARE, MEDICAID, SELFPAY ==
[2025-09-14 18:30] LABS: Abs Immature Grans 0.02 10^3/uL (0.0-0.06); HCT 37.2 % (36.0-46.0); HGB 11.4 g/dL (11.2-15.7); Immature Grans % 0.3 %; MCH 31.1 pg (27.0-33.0); MCHC 30.6 % (32.0-36.0); MCV 102 fL (80-95); MPV 9.8 fL (8.0-11.0); Platelet Count 273 10^3/uL (130-400); RBC 3.66 10^6/uL (3.93-5.22); RDW 13.9 % (11.7-14.6); RDW-SD 53.0 fL; WBC 7.91 10^3/uL (4.4-10.8)
[2025-09-14 18:48] LABS: ALT 18 U/L (10-49); AST 25 U/L (<34); Albumin 3.8 g/dL (3.2-5.0); Alkaline Phosphatase 117 U/L (46-116); Anion Gap 7.5 mmol/L (3-11); BUN 20 mg/dL (9-23); Bilirubin, Total 0.30 mg/dL (0.2-1.2); CO2 26.5 mmol/L (20.0-31.0); Calcium 8.4 mg/dL (8.3-10.6); Chloride 109 mmol/L (98-107); Glucose 85 mg/dL (74-106); Magnesium 2.0 mg/dL (1.6-2.6); Potassium 5.2 mmol/L (3.5-5.1); Sodium 143 mmol/L (136-145); Total Protein 6.4 g/dL (5.7-8.2)
== END 2025-09-14 17:36 | disposition home or self-care (01) ==
LOC: LBN 17:35
PROVIDERS: PCP Legal Medicine; Visit Provider Nurse Practitioner Gerontology
DX: I50.22 Chronic systolic (congestive) heart failure (principal); E87.8 Other disorders of electrolyte and fluid balance, not elsewhere classified; D63.1 Anemia in chronic kidney disease
CPT/HCPCS: 80053; 83735; 83880; 85025

== ENCOUNTER 2025-09-24 13:56 | Outpatient (REF) | payer MEDICARE, MEDICAID, SELFPAY ==
[2025-09-24 16:36] LABS: ALT 11 U/L (10-49); AST 19 U/L (<34); Albumin 3.7 g/dL (3.2-5.0); Alkaline Phosphatase 109 U/L (46-116); Anion Gap 12.2 mmol/L (3-11); BUN 23 mg/dL (9-23); Bilirubin, Total 0.4 mg/dL (0.2-1.2); CO2 23.8 mmol/L (20.0-31.0); Calcium 9.0 mg/dL (8.3-10.6); Chloride 108 mmol/L (98-107); Glucose 86 mg/dL (74-106); Magnesium 1.8 mg/dL (1.6-2.6); Potassium 4.3 mmol/L (3.5-5.1); Sodium 144 mmol/L (136-145); Total Protein 6.4 g/dL (5.7-8.2)
[2025-09-24 17:42] LABS: Abs Immature Grans 0.03 10^3/uL (0.0-0.06); HCT 37.1 % (36.0-46.0); HGB 11.6 g/dL (11.2-15.7); Immature Grans % 0.3 %; MCH 31.1 pg (27.0-33.0); MCHC 31.3 % (32.0-36.0); MCV 100 fL (80-95); MPV 10.1 fL (8.0-11.0); Platelet Count 329 10^3/uL (130-400); RBC 3.73 10^6/uL (3.93-5.22); RDW 14.5 % (11.7-14.6); RDW-SD 52.5 fL; WBC 8.74 10^3/uL (4.4-10.8)
== END 2025-09-24 13:57 | disposition home or self-care (01) ==
LOC: LBN 13:56
PROVIDERS: PCP Legal Medicine; Visit Provider Nurse Practitioner Gerontology
DX: I50.23 Acute on chronic systolic (congestive) heart failure (principal); E87.8 Other disorders of electrolyte and fluid balance, not elsewhere classified; D63.1 Anemia in chronic kidney disease; E83.42 Hypomagnesemia
CPT/HCPCS: 80053; 83735; 83880; 85025